=== PATIENT | male | born 1940 | race Caucasian/White ===

== ENCOUNTER 2017-06-17 16:47 | Emergency (ER) | payer MEDICARE, SELFPAY ==
[2017-06-17 16:49] VITALS: BP 153/83; PULSE 75; RESP 20; TEMP 36.8; O2SAT 94; BMI 31.2
[2017-06-17 17:27] LABS: Basophils % 0.3 % (0.1-2.0); Eosinophils # 0.2 K/mm3 (0.0-0.4); Hematocrit 44.4 % (42.0-52.0); Hemoglobin 14.6 g/dL (14.1-18.0); Lymphocytes # 1.1 K/mm3 (0.7-4.5); Lymphocytes % 14.8 K/mm3 (10-50); Mean Corpuscular Hemoglobin 31.5 pg (27.0-31.2); Mean Corpuscular Volume 95.7 fl (80-94); Mean Platelet Volume 7.7 fl (7.4-10.4); Monocytes # 0.5 K/mm3 (0.1-1.0); Monocytes % 6.9 % (1.7-9.3); Neutrophils # 5.5 K/mm3 (1.8-7.8); Platelet Count 274 K/mm3 (142-424); Red Blood Count 4.64 M/mm3 (4.60-6.20); Red Cell Distribution Width 13.3 % (11.5-17.5); White Blood Count 7.3 K/mm3 (4.8-10.8)
--- NOTE | 2017-06-17 17:38 | HMH.EDDIZZ ---
ED Disposition Clinical Impression: Hypertension, CAD (coronary artery disease), Non-compliance, PVCs (premature ventricular contractions) Disposition: Home, Self-Care Condition on Discharge: Fair Additional Instructions: 1- start on coreg 12.5 mg po bid. 2- recheck BP twice a day. 3- to return if needed at any time. 4- see Dr Colorado in AM. Prescriptions: Carvedilol [Coreg 12.5mg Tablet] 12.5 mg PO BID 30 Days #60 tab Referrals: Jose F Morel MD [Primary Care Provider] - - Critical Care Critical Care Time: No Attestation: On 06/17/17, the high probability of a clinically significant, sudden or life threatening deterioration of the following system(s) required my full and direct attention, intervention and personal management. The time I documented below is in addition to time spent performing reported procedures but includes the following listed in this critical care notation. Medical Decision Making - Isaías Inquiry Pt receiving controlled substance: No Isaías was queried for this patient: No Vital Signs: 06/17/17 16:49 06/17/17 19:19 Temperature 98.3 F Temperature Source Oral Pulse Rate [Right Radial] 75 70 Respiratory Rate 20 16 Blood Pressure [Right Arm] 153/83 185/89 Blood Pressure Mean [Right Arm] 106 121 Blood Pressure Source [Right Arm] Automatic Cuff Automatic Cuff Blood Pressure Position [Right Arm] Sitting Sitting 02 Sat by Pulse Oximetry 94 L 98 Oxygen Delivery Method Room Air Room Air - Lab Data Lab Results 06/17/17 17:20: WBC 7.3, RBC 4.64, Hgb 14.6, Hct 44.4, MCV 95.7 H, MCH 31.5 H, MCHC 33.0, RDW 13.3, Plt Count 274, MPV 7.7, Neut % (Auto) 75.0, Lymph % (Auto) 14.8, [place] % (Auto) 6.9, Eos % (Auto) 3.0, Baso % (Auto) 0.3, Neut # (Auto) 5.5, Lymph # (Auto) 1.1, [place] # (Auto) 0.5, Eos # (Auto) 0.2, Baso # (Auto) 0.0 06/17/17 17:20: Sodium 144, Potassium 3.7, Chloride 104, Carbon Dioxide 34 H, Anion Gap 9.7, BUN 9, Creatinine 0.86, Estimated Creat Clear 105, Estimated GFR 87, Est GFR ( Amer) 105, Glucose 124 H, Calcium 8.4 L, Total Bilirubin 0.5, AST 13 L, ALT 20, Alkaline Phosphatase 92, Total Creatine Kinase 153, CK-MB (CK-2) 1.9, CK-MB (CK-2) Rel Index 1.2, Troponin I 0.02, Total Protein 7.0, Albumin 3.9, Globulin 3.1, Albumin/Globulin Ratio 1.3 06/17/17 18:35: Magnesium 2.1, Troponin I 0.02 Result diagrams: 06/17/17 17:20 06/17/17 17:20 Orders (Tests/Meds): ED MEDICATIONS Generic Name Dose Route Start Last Admin Trade Name Freq PRN Reason Stop Dose Admin Carvedilol 6.25 mg 06/17/17 21:00 06/17/17 19:28 Coreg 6.25mg Tablet PO 07/17/17 20:59 6.25 mg BID DAYAN Administration Lisinopril 10 mg 06/18/17 09:00 06/17/17 18:32 Zestril 10mg Tablet PO 07/18/17 08:59 10 mg DAILY DAYAN Administration ORDERS Category Date Time Status ECG Request by /Norma Stat Y 06/17/17 17:10 Ordered - Radiology Data #1 Image(s): Chest Image Reviewed: Yes I reviewed the patient's radiology image, Yes I have reviewed radiologist's interpretation Preliminary Findings: Normal/NAD #2 Image Reviewed: Yes I reviewed the patient's radiology image - CT Data CT Scan: Head Time Received: 19:[address] Reviewed: Yes: I have viewed the radiologist's interpretation Preliminary Findings: Normal/NAD - ECG Data Tracing #1 Sinus rhythm first-degree block with left bundle branch block left axis deviation. ECG initial impression date: 06/17/17 ECG initial impression time: 17:40 Tracing #2 1920 Second EKG normal sinus rhythm 69/min first-degree AV block left bundle with unifocal PVCs ECG initial impression date: 06/17/17 ECG initial impression time: 19:29 - Core Measures Clinical Trial Participant: No AMI core measures followed: No Medical Decision Narrative: I reviewed Mr. Ertl EKG with his compensation agent Dr. Colorado who sold no acute findings and recommended to increase his beta-blockers and follow-up in the morning w
--- NOTE | 2017-06-17 17:41 | ED_ITS ---
ED Disposition Clinical Impression: Hypertension, CAD (coronary artery disease), Non-compliance, PVCs (premature ventricular contractions) Disposition: Home, Self-Care Condition on Discharge: Fair Additional Instructions: 1- start on coreg 12.5 mg po bid. 2- recheck BP twice a day. 3- to return if needed at any time. 4- see Dr Colorado in AM. Prescriptions: Carvedilol [Coreg 12.5mg Tablet] 12.5 mg PO BID 30 Days #60 tab Referrals: Jose F Morel MD [Primary Care Provider] - - Critical Care Critical Care Time: No Attestation: On 06/17/17, the high probability of a clinically significant, sudden or life threatening deterioration of the following system(s) required my full and direct attention, intervention and personal management. The time I documented below is in addition to time spent performing reported procedures but includes the following listed in this critical care notation. Medical Decision Making - Isaías Inquiry Pt receiving controlled substance: No Isaías was queried for this patient: No Vital Signs: 06/17/17 16:49 06/17/17 19:19 Temperature 98.3 F Temperature Source Oral Pulse Rate [Right Radial] 75 70 Respiratory Rate 20 16 Blood Pressure [Right Arm] 153/83 185/89 Blood Pressure Mean [Right Arm] 106 121 Blood Pressure Source [Right Arm] Automatic Cuff Automatic Cuff Blood Pressure Position [Right Arm] Sitting Sitting 02 Sat by Pulse Oximetry 94 L 98 Oxygen Delivery Method Room Air Room Air - Lab Data Lab Results 06/17/17 17:20: WBC 7.3, RBC 4.64, Hgb 14.6, Hct 44.4, MCV 95.7 H, MCH 31.5 H, MCHC 33.0, RDW 13.3, Plt Count 274, MPV 7.7, Neut % (Auto) 75.0, Lymph % (Auto) 14.8, [place] % (Auto) 6.9, Eos % (Auto) 3.0, Baso % (Auto) 0.3, Neut # (Auto) 5.5 , Lymph # (Auto) 1.1, [place] # (Auto) 0.5, Eos # (Auto) 0.2, Baso # (Auto) 0.0 06/17/17 17:20: Sodium 144, Potassium 3.7, Chloride 104, Carbon Dioxide 34 H, Anion Gap 9.7, BUN 9, Creatinine 0.86, Estimated Creat Clear 105, Estimated GFR 87, Est GFR ( Amer) 105, Glucose 124 H, Calcium 8.4 L, Total Bilirubin 0.5, AST 13 L, ALT 20, Alkaline Phosphatase 92, Total Creatine Kinase 153, CK- MB (CK-2) 1.9, CK-MB (CK-2) Rel Index 1.2, Troponin I 0.02, Total Protein 7.0, Albumin 3.9, Globulin 3.1, Albumin/Globulin Ratio 1.3 06/17/17 18:35: Magnesium 2.1, Troponin I 0.02 Result diagrams: 06/17/17 17:20 06/17/17 17:20 Orders (Tests/Meds): ED MEDICATIONS Generic Name Dose Route Start Last Admin Trade Name Freq PRN Reason Stop Dose Admin Carvedilol 6.25 mg 06/17/17 21:00 06/17/17 19:28 Coreg 6.25mg Tablet PO 07/17/17 20:59 6.25 mg BID DAYAN Administration Lisinopril 10 mg 06/18/17 09:00 06/17/17 18:32 Zestril 10mg Tablet PO 07/18/17 08:59 10 mg DAILY DAYAN Administration ORDERS Category Date Time Status ECG Request by /Norma Stat Y 06/17/17 17:10 Ordered - Radiology Data #1 Image(s): Chest Image Reviewed: Yes I reviewed the patient's radiology image, Yes I have reviewed radiologist's interpretation Preliminary Findings: Normal/NAD #2 Image Reviewed: Yes I reviewed the patient's radiology image - CT Data CT Scan: Head Time Received: 19:[address] Reviewed: Yes: I have viewed the radiologist's interpretation Preliminary Findings: Normal/NAD - ECG Data Tracing #1
--- NOTE | 2017-06-17 17:47 | CT_ITS ---
CT head/brain wo con HISTORY: ITS.REASON: dizziness and elevated bp ORDERING PHYSICIAN: Leno Trevino MD PATIENT AGE: 76 years COMPARISON: None TECHNIQUE: Axial images obtained without contrast. Brain and bone windows reviewed. FINDINGS: No midline shift, mass effect, intracranial hemorrhage, hydrocephalus, or extra-axial fluid collection is evident. There is mild atrophy. Hypoattenuation is present in the periventricular and subcortical white matter consistent with ischemic gliotic change from microvascular disease. Small isodense is present in the central aspect of the sorin and could be due to an area of ischemic gliotic change is well. The calvarium has an unremarkable appearance. No mastoid effusion. Mild mucosal thickening of the ethmoid sinuses. IMPRESSION: 1. No acute intracranial findings. 2. Atrophy with chronic ischemic change. 3. No acute intracranial hemorrhage
--- NOTE | 2017-06-17 17:47 | XR_ITS ---
XR chest 2V HISTORY: ITS.REASON: dizziness and elevated BP , new LBBB. ORDERING PHYSICIAN: Leno Trevino MD PATIENT AGE: 76 years COMPARISON: 09/22/2016 FINDINGS: There has been a prior CABG. No evidence of CHF. COPD with chronic changes. No lobar consolidation or collapse. There are degenerative changes in the thoracic spine. There is evidence of old granulomatous disease. Tortuosity/ectasia noted of the descending thoracic aorta IMPRESSION: Prior CABG with COPD. No change with no acute finding
[2017-06-17 17:58] LABS: Alanine Aminotransferase 20 U/L (12-78); Albumin Level 3.9 gm/dL (3.4-5.0); Albumin/Globulin Ratio 1.3 (1.1-1.8); Alkaline Phosphatase 92 U/L (46-116); Anion Gap 9.7 mEq/L (5-15); Aspartate Amino Transferase 13 U/L (15-37); Bilirubin,Total 0.5 mg/dL (0.2-1.0); Blood Urea Nitrogen 9 mg/dL (7-18); CKMB Relative Index 1.2 U/L (0-4.0); Calcium 8.4 mg/dL (8.5-10.1); Carbon Dioxide 34 mmol/L (21.0-32.0); Chloride 104 mmol/L (98-107); Creatine Kinase 153 U/L (39-308); Creatine Kinase MB 1.9 mg/ml (0.0-3.6); Creatinine Clearance Estimated 105 mL/min (0-300); Creatinine,Serum 0.86 mg/dL (0.70-1.30); Estimated Glomerular Filt Rate 87 ml/min (>60); GFR (African American) 105 ML/MIN (>60); Globulin 3.1 gm/dl (1.3-3.2); Glucose 124 mg/dL (74-106); Potassium 3.7 mmoL/L (3.5-5.1); Sodium 144 mmol/L (136-145); Troponin I 0.02 ng/ml (0.00-0.06)
[2017-06-17 19:02] LABS: Magnesium 2.1 mg/dL (1.4-2.2); Troponin I 0.02 ng/ml (0.00-0.06)
[2017-06-17 19:19] VITALS: BP 185/89; PULSE 70; RESP 16; O2SAT 98
[2017-06-17 20:21] VITALS: BP 156/96; PULSE 86; RESP 16; TEMP 36.7; O2SAT 100
== END 2017-06-17 20:22 | disposition home or self-care (01) ==
PROVIDERS: Emergency Provider Emergency Medicine; PCP Emergency Medicine
DX: R42 Dizziness and giddiness (principal); I10 Essential (primary) hypertension; I25.10 Atherosclerotic heart disease of native coronary artery without angina pectoris; E78.5 Hyperlipidemia, unspecified; F17.210 Nicotine dependence, cigarettes, uncomplicated; Z95.1 Presence of aortocoronary bypass graft
CPT/HCPCS: 70450; 71046; 80053; 82550; 82553; 83735; 84484; 85025; 93005; 93041; 99211; 99283

== ENCOUNTER → 2017-06-22 07:06 | Outpatient (CLI) | payer MEDICARE, SELFPAY ==
--- NOTE | 2017-06-22 07:08 | NM_ITS ---
SPECT MYOCARDIAL PERFUSION SCAN, REST [facility] REVIEW QGS EF AND WALL MOTION EVALUATION: QPS - PERFUSION EVALUATION: HISTORY: HTN, CABG PROCEDURE: Rest imaging performed after administration of32.7 millicuries Tc MIBI. Dose administered at7:15 a.m., with imaging thereafter. FINDINGS: Perfusion Evaluation: The single slice spect images as well as the [facility] bull's-eye data summary were reviewed. Wall Motion and Ejection Fraction Evaluation: Gated SPECT review and analysis used to evaluate these features. There is a 34 % left ventricular ejection fraction. Diffuse hypokinesis is present IMPRESSION: Systolic congestive heart failure with ejection fraction of 34%
--- NOTE | 2017-06-22 09:10 | HMH.ITSHM ---
ATORVASTATIN CARVEDILOL PLAVIX DOXIGOXIN LOSARTAN POTASSIUM HYDROCHLOROTHIAZIDE
== END ==
PROVIDERS: PCP Emergency Medicine; Visit Provider Internal Medicine
DX: R94.31 Abnormal electrocardiogram [ECG] [EKG] (principal); I42.9 Cardiomyopathy, unspecified
CPT/HCPCS: 78451; A9502

== ENCOUNTER 2017-06-25 09:43 | Day surgery (SDC) | payer MEDICARE, SELFPAY ==
[2017-06-24 12:09] VITALS: BMI 31.7
[2017-06-25] VITALS (13 sets, daily range): BP systolic 124–148; BP diastolic 69–95; PULSE 62–76; RESP 16–20; TEMP 36.1–36.7; O2SAT 94–98
--- NOTE | 2017-06-25 | XR_ITS ---
XR pacemaker defibrillator CLINICAL INDICATION: Pacemaker placement ITS.REASON: BIV PLACEMENT ORDERING PHYSICIAN: Kurtis Colorado MD PATIENT AGE: 76 years Fluoroscopy time: 24 minutes and 73 seconds COMPARISON: None FINDINGS: Single image submitted with the C-arm shows the dual lead pacemaker present. IMPRESSION: Status post pacemaker placement with fluoroscopic guidance
--- NOTE | 2017-06-25 10:53 | HMH.ANESCL ---
[facility] Anesthesia Checklist - Patient Identification Patient Identification: Arm Band - Structural Data Consent for Planned Operative Procedure(s) Verified: Yes Verified Documents: Surgical Consent, History and Physical - NPO Status Verified Time NPO: 00:00 - Additional verifications Anesthesia Reactions: No - Airway Assessment C-Spine Mobility Assessed: Yes (limited ROM) TMJ Mobility Assessed: Yes Dentition: Dentures-good fit - Neurological Assessment Level of Consciousness: Awake Hx Seizures: No Numbness or tingling in extremities: No - Anesthesia Plan Anesthesia Risk discussed: Yes Anesthesia Plan: Verified ASA Class: III Anesthesia Type: General [facility] Anesthesia HX I have reviewed the patient's past medical history: Yes Medical History: Reports:: Cancer (prostate), Cardiomyopathy, Coronary Artery Disease, Hyperlipidemia, Hypertension, Myocardial Infarction Denies:: Diabetes Mellitus Type 1, Diabetes Mellitus Type 2, Internal Pacemaker, MRSA, Seizures Other Medical History: Denies: Blood Transfusion Reaction Other Surgeries: Yes: CABG, Cardiac Catheterization, Other. 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
--- NOTE | 2017-06-25 10:56 | P.PN_ITS ---
[facility] Anesthesia Checklist - Patient Identification Patient Identification: Arm Band - Structural Data Consent for Planned Operative Procedure(s) Verified: Yes Verified Documents: Surgical Consent, History and Physical - NPO Status Verified Time NPO: 00:00 - Additional verifications Anesthesia Reactions: No - Airway Assessment C-Spine Mobility Assessed: Yes (limited ROM) TMJ Mobility Assessed: Yes Dentition: Dentures-good fit - Neurological Assessment Level of Consciousness: Awake Hx Seizures: No Numbness or tingling in extremities: No - Anesthesia Plan Anesthesia Risk discussed: Yes Anesthesia Plan: Verified ASA Class: III Anesthesia Type: General [facility] Anesthesia HX I have reviewed the patient's past medical history: Yes Medical History: Reports:: Cancer (prostate), Cardiomyopathy, Coronary Artery Disease, Hyperlipidemia, Hypertension, Myocardial Infarction Denies:: Diabetes Mellitus Type 1, Diabetes Mellitus Type 2, Internal Pacemaker, MRSA, Seizures Other Medical History: Denies: Blood Transfusion Reaction Other Surgeries: Yes: CABG, Cardiac Catheterization, Other. 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
--- NOTE | 2017-06-25 14:19 | XR_ITS ---
XR chest portable HISTORY: Follow-up pacemaker placement ITS.REASON: post pacemaker placement ORDERING PHYSICIAN: Kurtis Colorado MD PATIENT AGE: 76 years COMPARISON: 06/17/2017 FINDINGS: AICD device has been placed by the left subclavian approach with the leads in good position. There is cardiomegaly without failure. There has been prior median sternotomy. There are low lung volumes with chronic changes in the lower lobes. No evidence of pneumothorax. IMPRESSION: Status post AICD placement with no radiographic evidence of complication
--- NOTE | 2017-06-25 14:27 | P.PN_ITS ---
[facility] Anesthesia Record Part I Intake, IV Amount: 900 Estimated blood loss (mL): 10 Urine output (mL): 0 Blood Pressure: 126/69 SaO2: 95 Pulse Rate: 65 Respiratory Rate: 16 Temperature: 97 F Patient is:: Drowsy, Stable Stable to PACU at:: 14:20
--- NOTE | 2017-06-25 14:27 | HMH.ANESII ---
[facility] Anesthesia Record Part II Discharge Time: 14:50 Destination: [facility] PACU nurse assessment reviewed?: Yes Patient Condition:: Good Anesthesia Complications:: None
--- NOTE | 2017-06-25 14:28 | P.PN_ITS ---
[facility] Anesthesia Record Part II Discharge Time: 14:50 Destination: [facility] PACU nurse assessment reviewed?: Yes Patient Condition:: Good Anesthesia Complications:: None
--- NOTE | 2017-06-25 15:13 | PC.NURSE ---
1430-O2 titrated to 2l/nc, sats stable. Radiology at bedside.
--- NOTE | 2017-06-25 15:15 | PC.NURSE ---
1440-Pt drinking ice water w/out difficulty. O2 titrated off, sats stable.
--- NOTE | 2017-06-25 15:17 | PC.NURSE ---
slight swelling noted to BiV AICD site (Left upper chest), applied sandbag to site. Bruising noted.
--- NOTE | 2017-06-25 15:18 | PC.NURSE ---
1448-Detailed report called to MARIANO Lowe 1916-Pt transported to post op via stretcher w/rails up. Detailed bedside report given to MARIANO Lozoya. Pt left in care of MARIANO Lozoya w/bed locked in loewst position. VSS. Pt stable.
--- NOTE | 2017-06-28 08:07 | HMH.CRT-D ---
[facility] DRAPERY COUNSELOR-D - DRAPERY COUNSELOR-D Date of Procedure:: 06/25/17 Procedures:: 1. Pocket formation for biventricular pacemaker generator with cardiac resynchronization/defibrillator therapy. 2. Placement atrial sensing and pacing lead into the right atrial appendage. 3. Placement of right ventricular sensing pacing and shocking lead in the right ventricular apex. 4. Placement of left ventricular sensing pacing lead via the coronary sinus. 5. Permanent cardiac resynchronization therapy with ICD implantation/biventricular pacemaker. Indication for test:: Systolic Congestive Heart Failure, Ejection < 35 % Wide QRS > 120 m/s [place] Heart [employer] Class 3 CHF Informed consent:: Obtained prior to procedure. Complications:: None EBL:: Less than 10 ml. Technique:: 1% lidocaine with epinephrine used to anesthetize the left anterior aspect of the chest. Scalpel was used to make the initial cutaneous incision while electrocautery was used to dissect down into the fascia. The fascia was lifted off the pectoralis muscle and digitally manipulated creating a pocket for the pacemaker. The patient was then placed in Trendelenburg position and subclavian vein was accessed via the Seldinger technique on 3 separate occasions. 3 wires were left into the subclavian vein. The right ventricular pacing shocking coil sheath was placed into the subclavian vein and under fluoroscopic guidance the right lingular sensing pacing shocking lead was placed into the right ventricular apex secured into place with the distal screw. After achieving excellent numbers the lead was then secured into placing using 3-0 silk. The lead was secured to the fascia also with heavy silk suture. Prior to the right ventricular lead being secured into place the sheath was peeled away from the subclavian vein. Under fluoroscopic guidance the coronary sinus was cannulated and confirmed with an injection of contrast. An 0.014 wire was then placed distally in the inferior posterior segment of the left ventricle via the coronary sinus and the left ventricular lead was advanced. After achieving excellent thresholds and interrogation numbers the sheath was then peeled away and the lead was then secured into place using silk suture. Following this, the left ventricular coil was secured in place using heavy silk and also secured to the fascia and additional 7 Armenian sheath was then placed over the existing wire and an atrial sensing placing coil was placed in the right atrial appendage after achieving excellent thresholds the sheath was peeled away and the lead was secured to the fascia using heavy silk. After achieving, hemostasis, Ancef was used to flush the pocket and the 3 leads were attached to the DRAPERY COUNSELOR-D generator. The generator was then secured into place by heavy silk suture. Monocryl was used to close the subcutaneous layers while rupert were used to close the subcutaneous layers while rupert were used to close the cutaneous layer. Pressurized and the patient was transferred to the postop holding area in stable condition. Impression:: 1. Successful pocket formation for biventricular pacemaker generator with cardiac resynchronization/defibrillator therapy. 2. Successful placement of right atrial sensing and pacing lead into the right atrial appendage. 3. Successful placement of a right ventricular sensing, pacing, and shocking lead in the right ventricular apex. 4. Successful placement of left ventricular sensing pacing lead via the coronary sinus. 5. Successful permanent cardiac resynchronization plus AICD generator device. Interrogation:: Generator: [employer] Model # [id number] Serial # [id number] RA Model # [id number] Serial # [id number] P-wave 3.0 mV Impedance 540 Ohms Threshold 0.75 V Pulse Width 0.5 ms RVA Model # [id number] Serial # [id number] R-wave 11.5 mV Impedance 650 Ohms Threshold 0.5 V Pulse Width 0.5 ms LV Model # 1458Q/86 Serial # [id number] R-wave
--- NOTE | 2017-06-28 08:10 | P.PCN_ITS ---
[facility] CHEMISTRY LECTURER-D - CHEMISTRY LECTURER-D Date of Procedure:: 06/25/17 Procedures:: 1. Pocket formation for biventricular pacemaker generator with cardiac resynchronization/defibrillator therapy. 2. Placement atrial sensing and pacing lead into the right atrial appendage. 3. Placement of right ventricular sensing pacing and shocking lead in the right ventricular apex. 4. Placement of left ventricular sensing pacing lead via the coronary sinus. 5. Permanent cardiac resynchronization therapy with ICD implantation/ biventricular pacemaker. Indication for test:: Systolic Congestive Heart Failure, Ejection < 35 % Wide QRS > 120 m/s [place] Heart [employer] Class 3 CHF Informed consent:: Obtained prior to procedure. Complications:: None EBL:: Less than 10 ml. Technique:: 1% lidocaine with epinephrine used to anesthetize the left anterior aspect of the chest. Scalpel was used to make the initial cutaneous incision while electrocautery was used to dissect down into the fascia. The fascia was lifted off the pectoralis muscle and digitally manipulated creating a pocket for the pacemaker. The patient was then placed in Trendelenburg position and subclavian vein was accessed via the Seldinger technique on 3 separate occasions. 3 wires were left into the subclavian vein. The right ventricular pacing shocking coil sheath was placed into the subclavian vein and under fluoroscopic guidance the right lingular sensing pacing shocking lead was placed into the right ventricular apex secured into place with the distal screw. After achieving excellent numbers the lead was then secured into placing using 3-0 silk. The lead was secured to the fascia also with heavy silk suture. Prior to the right ventricular lead being secured into place the sheath was peeled away from the subclavian vein. Under fluoroscopic guidance the coronary sinus was cannulated and confirmed with an injection of contrast. An 0.014 wire was then placed distally in the inferior posterior segment of the left ventricle via the coronary sinus and the left ventricular lead was advanced. After achieving excellent thresholds and interrogation numbers the sheath was then peeled away and the lead was then secured into place using silk suture. Following this, the left ventricular coil was secured in place using heavy silk and also secured to the fascia and additional 7 Japanese sheath was then placed over the existing wire and an atrial sensing placing coil was placed in the right atrial appendage after achieving excellent thresholds the sheath was peeled away and the lead was secured to the fascia using heavy silk. After achieving, hemostasis, Ancef was used to flush the pocket and the 3 leads were attached to the CHEMISTRY LECTURER-D generator. The generator was then secured into place by heavy silk suture. Monocryl was used to close the subcutaneous layers while rupert were used to close the subcutaneous layers while rupert were used to close the cutaneous layer. Pressurized and the patient was transferred to the postop holding area in stable condition. Impression:: 1. Successful pocket formation for biventricular pacemaker generator with cardiac resynchronization/defibrillator therapy. 2. Successful placement of right atrial sensing and pacing lead into the right atrial appendage. 3. Successful placement of a right ventricular sensing, pacing, and shocking lead in the right ventricular apex. 4. Successful placement of left ventricular sensing pacing lead via the coronary sinus. 5. Successful permanent cardiac resynchronization plus AICD generator device. Interrogation:: Generator: [employer] Model # [id number] Serial # [id number]
== END 2017-06-25 17:04 | disposition home or self-care (01) ==
LOC: OR 09:46
PROVIDERS: PCP Emergency Medicine; Visit Provider Internal Medicine
PROC: 0JH609Z Insertion of Cardiac Resynchronization Defibrillator Pulse Generator into Chest Subcutaneous Tissue and Fascia, Open Approach (ICD-10-PCS; CPT 33249; principal; 2017-06-25 11:30)
DX: Z45.02 Encounter for adjustment and management of automatic implantable cardiac defibrillator (principal); I50.20 Unspecified systolic (congestive) heart failure; I44.7 Left bundle-branch block, unspecified; I25.10 Atherosclerotic heart disease of native coronary artery without angina pectoris; I25.2 Old myocardial infarction; I25.5 Ischemic cardiomyopathy; I11.0 Hypertensive heart disease with heart failure; Z95.1 Presence of aortocoronary bypass graft
CPT/HCPCS: 33225; 33249; 71045; 96374; C1769; C1882; C1894; C1895; C1898; C1900; Q9967

== ENCOUNTER → 2017-07-21 10:01 | Outpatient (CLI) | payer MEDICARE, SELFPAY ==
[2017-07-21 11:50] LABS: Anion Gap 12.4 mEq/L (5-15); Blood Urea Nitrogen 13 mg/dL (7-18); Carbon Dioxide 30 mmol/L (21.0-32.0); Chloride 103 mmol/L (98-107); Creatinine,Serum 0.76 mg/dL (0.70-1.30); Estimated Glomerular Filt Rate 100 ml/min (>60); GFR (African American) 121 ML/MIN (>60); Glucose 97 mg/dL (74-106); Potassium 4.4 mmoL/L (3.5-5.1); Sodium 141 mmol/L (136-145)
== END ==
PROVIDERS: Visit Provider Internal Medicine Cardiovascular Disease
DX: R06.02 Shortness of breath (principal); I42.9 Cardiomyopathy, unspecified; R53.83 Other fatigue; Z95.810 Presence of automatic (implantable) cardiac defibrillator
CPT/HCPCS: 36415; 80048; 83880

== ENCOUNTER → 2017-09-13 12:39 | Outpatient (CLI) | payer MEDICARE, SELFPAY ==
[2017-09-13 01:45] VITALS: PULSE 66; PULSE 67
== END ==
PROVIDERS: PCP Emergency Medicine; Visit Provider Internal Medicine
DX: R06.09 Other forms of dyspnea (principal)
CPT/HCPCS: 94060; 94640; 94726; 94729

== ENCOUNTER → 2017-10-05 09:50 | Outpatient (REF) | payer MEDICARE, SELFPAY ==
[2017-10-05 13:44] LABS: Basophils % 0.5 % (0.1-2.0); Eosinophils # 0.3 K/mm3 (0.0-0.4); Eosinophils % 3.2 % (0.1-12.0); Hematocrit 47.3 % (42.0-52.0); Hemoglobin 14.7 g/dL (14.1-18.0); Lymphocytes # 1.5 K/mm3 (0.7-4.5); Lymphocytes % 17.5 K/mm3 (10-50); Mean Corpuscular HGB Conc 31.2 g/dL (31.8-35.4); Mean Corpuscular Hemoglobin 30.5 pg (27.0-31.2); Mean Corpuscular Volume 97.9 fl (80-94); Mean Platelet Volume 8.7 fl (7.4-10.4); Monocytes # 0.5 K/mm3 (0.1-1.0); Monocytes % 6.6 % (1.7-9.3); Neutrophils % 72.2 % (37.0-80.0); Platelet Count 253 K/mm3 (142-424); Red Blood Count 4.83 M/mm3 (4.60-6.20); Red Cell Distribution Width 12.8 % (11.5-17.5); White Blood Count 8.3 K/mm3 (4.8-10.8)
[2017-10-05 14:01] LABS: Cholesterol 140 mg/dL (140-200); HDL Cholesterol 47 mg/dL (27-67); LDL Cholesterol 75 mg/dL (0-130); Triglycerides 92 mg/dL (30-200); VLDL Cholesterol 18 mg/dL (0-40)
[2017-10-05 14:20] LABS: Alanine Aminotransferase 20 U/L (12-78); Albumin/Globulin Ratio 1.5 (1.1-1.8); Alkaline Phosphatase 82 U/L (46-116); Anion Gap 11.9 mEq/L (5-15); Aspartate Amino Transferase 18 U/L (15-37); Bilirubin,Total 0.5 mg/dL (0.2-1.0); Blood Urea Nitrogen 12 mg/dL (7-18); Calcium 8.7 mg/dL (8.5-10.1); Carbon Dioxide 32 mmol/L (21.0-32.0); Chloride 105 mmol/L (98-107); Creatinine,Serum 0.78 mg/dL (0.70-1.30); Estimated Glomerular Filt Rate 97 ml/min (>60); GFR (African American) 117 ML/MIN (>60); Globulin 2.6 gm/dl (1.3-3.2); Glucose 103 mg/dL (74-106); Potassium 3.9 mmoL/L (3.5-5.1); Sodium 145 mmol/L (136-145); Total Protein,Serum 6.6 gm/dL (6.4-8.2)
[2017-10-05 14:25] LABS: Prostate Specific Ag Screen < 0.1 ng/mL (0.0-4.0)
== END ==
LOC: LAB 09:50
PROVIDERS: Visit Provider Emergency Medicine
DX: Z12.5 Encounter for screening for malignant neoplasm of prostate (principal); I25.10 Atherosclerotic heart disease of native coronary artery without angina pectoris; E78.5 Hyperlipidemia, unspecified
CPT/HCPCS: 80053; 80061; 85025; G0103

== ENCOUNTER → 2017-12-07 13:36 | Outpatient (POV) | payer MEDICARE, SELFPAY | PROVIDERS: Visit Provider Internal Medicine | DX: Z00.00 Encounter for general adult medical examination without abnormal findings (principal) ==

== ENCOUNTER → 2017-12-16 12:30 | Outpatient (CLI) | payer MEDICARE, SELFPAY ==
--- NOTE | 2017-12-16 12:32 | CT_ITS ---
CT lung screening EXAM: CT LUNG LOW DOSE WO CONTRAST HISTORY: Asymptomatic with 120 pack-year smoking history ITS.REASON: H/O NICOTINE DEPENDENCE ORDERING PHYSICIAN: Cristhian Baires MD PATIENT AGE: 77 years COMPARISON: None TECHNIQUE: The exam was performed on a GE Light Speed [address] scanner using 2.90 mGy CTDI. A low dose helical CT CHEST was performed on a multi-detector scanner. All CT scans at the facility use one or more dose reduction, viz: automated exposure control, ma/kV adjustment per patient size (including targeted exams where dose is matched to indication, i.e. head), or iterative reconstruction technique. The LDCT was performed in a facility that meets the criteria for the screening program. Data regarding this exam was submitted to ACR which is an approved registry. The order for this exam indicates that it came as a result of a lung cancer screening counseling shard decision-making visit that included all the elements required of such a visit including smoking cessation. The radiologist interpreting this exam meets the CMS criteria for the LDCT lung cancer screening program. The exam is reported using the Lung-RADS classification scale and reported to the ACR registry. NOTE: This study was performed for the specific purposes of lung cancer screening and is not an alternative to diagnostic chest CT. RADIATION DOSE: CTDI vol(CT dose Index-volume) = 2.90mG DLP (Dose Length Product) = 106.81 mGcm FINDINGS: Artifact is present from cardiac pacemaker from a left subclavian approach. 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 There are extensive coronary artery calcifications ill-defined noncalcified subpleural opacity in the right lung base anteriorly at 4 mm with groundglass density inferior to this area. Calcified granuloma right lung base. Fibrotic changes are present within the lingula. No suspicious pulmonary nodules evident. There is hyperinflation with attenuation of the peripheral pulmonary vessels and mild bronchial thickening consistent with obstructive chronic bronchitis IMPRESSION: 1. Lung RADS Category: 2, benign 2. Other findings: COPD, coronary artery disease RECOMMENDATIONS: 12 month LDCT follow-up
== END ==
PROVIDERS: PCP Emergency Medicine; Visit Provider Internal Medicine
DX: Z12.2 Encounter for screening for malignant neoplasm of respiratory organs (principal); Z87.891 Personal history of nicotine dependence

== ENCOUNTER → 2018-03-08 13:43 | Outpatient (POV) | payer MEDICARE, SELFPAY | PROVIDERS: Visit Provider Internal Medicine | DX: Z00.00 Encounter for general adult medical examination without abnormal findings (principal) ==

== ENCOUNTER → 2018-04-07 13:20 | Outpatient (CLI) | payer MEDICARE, SELFPAY ==
[2018-04-07 13:44] LABS: Basophils % 0.5 % (0.1-2.0); Eosinophils # 0.3 K/mm3 (0.0-0.4); Eosinophils % 3.9 % (0.1-12.0); Hematocrit 45.8 % (42.0-52.0); Hemoglobin 14.8 g/dL (14.1-18.0); Lymphocytes # 1.2 K/mm3 (0.7-4.5); Lymphocytes % 16.4 % (10-50); Mean Corpuscular HGB Conc 32.3 g/dL (31.8-35.4); Monocytes # 0.5 K/mm3 (0.1-1.0); Monocytes % 6.7 % (1.7-9.3); Neutrophils # 5.5 K/mm3 (1.8-7.8); Neutrophils % 72.5 % (37.0-80.0); Platelet Count 258 K/mm3 (142-424); Red Blood Count 4.62 M/mm3 (4.60-6.20); Red Cell Distribution Width 13.3 % (11.5-17.5); White Blood Count 7.6 K/mm3 (4.8-10.8)
[2018-04-07 13:57] LABS: Alanine Aminotransferase 21 U/L (12-78); Albumin/Globulin Ratio 1.5 (1.1-1.8); Alkaline Phosphatase 91 U/L (46-116); Anion Gap 10.7 mEq/L (5-15); Aspartate Amino Transferase 19 U/L (15-37); Bilirubin,Total 0.7 mg/dL (0.2-1.0); Blood Urea Nitrogen 11 mg/dL (7-18); Calcium 8.5 mg/dL (8.5-10.1); Carbon Dioxide 32 mmol/L (21.0-32.0); Chloride 105 mmol/L (98-107); Cholesterol 150 mg/dL (140-200); Creatinine,Serum 0.81 mg/dL (0.70-1.30); Estimated Glomerular Filt Rate 93 ml/min (>60); Free T4 (Free Thyroxine) 0.95 ng/dl (0.76-1.46); GFR (African American) 112 ML/MIN (>60); Globulin 2.7 gm/dl (1.3-3.2); Glucose 106 mg/dL (74-106); HDL Cholesterol 50 mg/dL (27-67); LDL Cholesterol 89 mg/dL (0-130); Potassium 3.7 mmoL/L (3.5-5.1); Sodium 144 mmol/L (136-145); Thyroid Stimulating Hormone 1.58 uIU/ml (0.358-3.740); Total Protein,Serum 6.7 gm/dL (6.4-8.2); Triglycerides 57 mg/dL (30-200); VLDL Cholesterol 11 mg/dL (0-40)
[2018-04-09 21:47] LABS: PSA, Free <0.01 ng/mL; Prostate Specific Ag <0.1 ng/mL (0.0-4.0)
== END ==
PROVIDERS: Visit Provider Emergency Medicine
DX: I25.10 Atherosclerotic heart disease of native coronary artery without angina pectoris (principal); Z85.46 Personal history of malignant neoplasm of prostate; Z79.899 Other long term (current) drug therapy
CPT/HCPCS: 80053; 80061; 84153; 84154; 84439; 84443; 85025

== ENCOUNTER → 2018-05-27 10:49 | Outpatient (CLI) | payer MEDICARE, SELFPAY ==
--- NOTE | 2018-05-27 10:53 | XR_ITS ---
XR chest 2V HISTORY: ITS.REASON: cough ORDERING PHYSICIAN: Darya Alejandre PATIENT AGE: 77 years COMPARISON: 06/25/2017 FINDINGS: Prior CABG. Biventricular pacemaker with atrial lead noted. Borderline cardiomegaly without failure. There is COPD. Chronic changes are present left lower lobe. There is patchy increased density in the right lower lobe posteriorly suspicious for an area of infiltrate/pneumonia. Calcified granuloma is present in the right lung base. No acute bony findings. IMPRESSION: Prior CABG with pacemaker present. COPD with patchy infiltrate in the right lower lobe
== END ==
PROVIDERS: PCP Emergency Medicine; Visit Provider Nurse Practitioner Family
DX: J44.9 Chronic obstructive pulmonary disease, unspecified (principal); R05 Cough; R09.89 Other specified symptoms and signs involving the circulatory and respiratory systems
CPT/HCPCS: 71046

== ENCOUNTER 2018-07-14 14:35 | Inpatient (IN) ==
--- NOTE | 2018-07-14 16:03 | Emergency Department Note ---
ED Disposition Clinical Impression: PNA (pneumonia) Qualifiers: Pneumonia type: due to unspecified organism Laterality: right Lung location: lower lobe of lung Qualified Code(s): J18.1 - Lobar pneumonia, unspecified organism Disposition: Admitted as Observation Condition on Discharge: Good Time of Disposition: 09:00 - Critical Care Critical Care Time: No Attestation: On 07/14/18, the high probability of a clinically significant, sudden or life threatening deterioration of the following system(s) required my full and direct attention, intervention and personal management. The time I documented below is in addition to time spent performing reported procedures but includes the following listed in this critical care notation. Medical Decision Making - Medical Records Medical records reviewed: Yes: I reviewed the patient's medical records. - Isaías Inquiry Pt receiving controlled substance: No Isaías was queried for this patient: No Vital Signs: 07/14/18 14:39 07/14/18 15:10 07/14/18 15:56 Temperature 97.7 F 97.8 F 98.9 F Temperature Source Oral Oral Oral Pulse Rate Pulse Rate [Right] 76 87 64 Respiratory Rate 20 22 20 Blood Pressure Blood Pressure [Right Arm] 148/100 H 158/98 H 125/91 H Blood Pressure Mean [Right Arm] 116 118 102 Blood Pressure Source Blood Pressure Source [Right Arm] Manual Cuff/ Auscultation Automatic Cuff Automatic Cuff Blood Pressure Position Blood Pressure Position [Right Arm] Sitting Sitting Sitting 02 Sat by Pulse Oximetry 94 L 97 93 L Oxygen Delivery Method Room Air Room Air Room Air 07/14/18 16:20 07/14/18 17:00 07/14/18 17:15 Temperature Temperature Source Pulse Rate Pulse Rate [Right] 73 96 H 95 H Respiratory Rate Blood Pressure Blood Pressure [Right Arm] 163/99 H 161/79 H 150/97 H Blood Pressure Mean [Right Arm] 120 106 114 Blood Pressure Source Blood Pressure Source [Right Arm] Automatic Cuff Automatic Cuff Automatic Cuff Blood Pressure Position Blood Pressure Position [Right Arm] Sitting Sitting Sitting 02 Sat by Pulse Oximetry 93 L 99 94 L Oxygen Delivery Method Room Air 07/14/18 17:30 07/14/18 18:01 Temperature 98.0 F Temperature Source Oral Pulse Rate 79 Pulse Rate [Right] 93 H Respiratory Rate 20 20 Blood Pressure 139/77 Blood Pressure [Right Arm] 114/75 Blood Pressure Mean [Right Arm] 88 Blood Pressure Source Automatic Cuff Blood Pressure Source [Right Arm] Automatic Cuff Blood Pressure Position Sitting Blood Pressure Position [Right Arm] Sitting 02 Sat by Pulse Oximetry 97 Oxygen Delivery Method Room Air Room Air - Lab Data Lab results reviewed: Yes: I reviewed the patient's lab results. Lab Results 07/14/18 15:45: WBC 6.7, RBC 4.09 L, Hgb 13.1 L, Hct 38.9 L, MCV 95.2 H, MCH 32.2 H, MCHC 33.8, RDW 13.5, Plt Count 274, MPV 7.4, Neut % (Auto) 64.3, Lymph % (Auto) 23.0, [place] % (Auto) 7.9, Eos % (Auto) 4.4, Baso % (Auto) 0.5, Neut # (Auto) 4.3, Lymph # (Auto) 1.5, [place] # (Auto) 0.5, Eos # (Auto) 0.3, Baso # (Auto) 0.0 07/14/18 15:45: Sodium 145, Potassium 3.3 L, Chloride 104, Carbon Dioxide 32, Anion Gap 12.3, BUN 13, Creatinine 1.09, Estimated Creat Clear 91, Estimated GFR 66, Est GFR ( Amer) 79, Glucose 119 H, Calcium 9.0 07/14/18 15:45: Lactate 1.1 Result diagrams: 07/19/18 07:59 07/19/18 07:59 Orders (Tests/Meds): ED MEDICATIONS Discontinued Medications Generic Name Dose Route Start Last Admin Trade Name Freq PRN Reason Stop Dose Admin Acetaminophen 650 mg 07/14/18 17:33 Acetaminophen 325mg Tab PO 08/13/18 17:32 Q4HP PRN As Needed for Fever or Pain Acetaminophen 650 mg 07/14/18 18:01 Acetaminophen 325mg Tab PO 08/13/18 17:32 Q4HP PRN As Needed for Fever or Pain Albuterol/Ipratropium 3 ml 07/14/18 16:00 07/14/18 16:10 Duoneb 3ml [facility] 07/14/18 16:01 3 ml ONCE ONE Administration Albuterol/Ipratropium 3 ml 07/16/18 13:00 07/19/18 06:10 Duoneb 3ml [facility] 08/15/18 12:59 3 ml TIDRT DAYAN Administration Aspirin 81 mg 07/15/18 09:00 Aspirin 81mg Chewable Tablet PO 08/14/18 08:59 DAILY DAYAN Aspirin 81 mg 07/15/18 09:00 07/19/18 09:15 Aspirin 81mg Chewable Tablet PO 08/14/18 08:59 81 mg DAILY DAYAN Administration Atorvastatin Calcium 40 mg 07/15/18 09:00 Lipitor 40mg Tablet PO 08/14/18 08:59 DAILY DAYAN Atorvastatin Calcium 40 mg 07/15/18 21:00 07/18/18 21:10 Lipitor 40mg Tablet PO 08/14/18 20:59 40 mg HS DAYAN Administration Carvedilol 12.5 mg 07/14/18 21:00 Coreg 12.5mg Tablet PO 08/13/18 20:59 BID DAYAN Carvedilol 12.5 mg 07/14/18 21:00 07/18/18 08:50 Coreg 12.5mg Tablet PO 08/13/18 20:59 12.5 mg BID DAYAN Administration Carvedilol 18.75 mg 07/18/18 21:00 07/19/18 09:17 Coreg 12.5mg Tablet PO 08/17/18 20:59 18.75 mg BID DAYAN Administration Diphenhydramine HCl 50 mg 07/18/18 12:13 07/18/18 12:17 Benadryl 50mg/1ml Vial IV 07/18/18 12:14 50 mg ONCE ONE Administration Doxazosin Mesylate 2 mg 07/15/18 09:00 07/15/18 12:09 Cardura 4mg Tablet PO 08/14/18 08:59 Not Given DAILY DAYAN Fentanyl Citrate 25 mcg 07/18/18 09:23 Fentanyl 250mcg/5ml Vial IV 07/19/18 09:23 Q3MINP PRN Moderate to Severe Pain Fentanyl Citrate 50 mcg 07/18/18 09:23 Fentanyl 250mcg/5ml Vial IV 07/19/18 09:23 Q3MINP PRN Moderate to Severe Pain Fentanyl Citrate 50 mcg 07/18/18 12:13 07/18/18 12:34 Fentanyl 100mcg/2ml Vial IV 07/19/18 12:14 75 mcg Q3MINP PRN Administration Moderate to Severe Pain Fentanyl Citrate 25 mcg 07/18/18 12:13 Fentanyl 100mcg/2ml Vial IV 07/19/18 12:14 Q3MINP PRN Moderate to Severe Pain Flumazenil 0.2 mg 07/18/18 09:23 Romazicon 0.1mg/Ml 5ml Vial IV 07/18/18 23:00 NEEDED PRN Sedation Furosemide 40 mg 07/18/18 14:15 Lasix 40mg Tablet PO 08/17/18 14:14 DAILY DAYAN Furosemide 40 mg 07/18/18 14:09 07/18/18 14:30 Lasix 40mg/4ml Vial IV 07/18/18 14:10 40 mg ONCE ONE Administration Furosemide 40 mg 07/19/18 14:15 Lasix 40mg Tablet PO 08/18/18 14:14 DAILY DAYAN Furosemide 40 mg 07/18/18 18:46 07/18/18 19:19 Lasix 40mg/4ml Vial IV 07/18/18 18:47 40 mg ONCE ONE Administration Heparin Sodium (Porcine) 10,000 unit 07/18/18 12:13 Heparin 1,000 Units/Ml 10ml Vial (Radio Message [employer]outer) IV 07/18/18 16:13 NEEDED PRN Emergency [employer] Heparin Sodium/Sodium Chloride 3,000 unit 07/18/18 12:13 07/18/18 12:17 Heparin 1000 Units/500ml Ns (Radio Message Router) IV 07/18/18 12:14 3,000 unit ONCE ONE Administration Sodium Chloride 1,000 mls @ 50 mls/hr 07/14/18 17:45 Sod Chlor 0.9% 1000ml Bag IV 08/13/18 17:44 .Q20H DAYAN Levofloxacin/Dextrose 750 mg in 150 mls @ 100 mls/hr 07/14/18 17:30 07/14/18 17:49 Levofloxacin 750mg/150ml Premix IV 07/28/18 17:29 100 mls/hr Q24H DAYAN Administration Protocol Piperacillin Sod/Tazobactam 100 mls @ 200 mls/hr 07/14/18 17:30 07/14/18 19:21 Sod 4.5 gm/ Sodium Chloride IV 07/28/18 17:29 200 mls/hr Q8H DAYAN Administration Protocol Sodium Chloride 1,000 mls @ 50 mls/hr 07/14/18 18:01 07/18/18 07:42 Sod Chlor 0.9% 1000ml Bag IV 08/13/18 17:44 Not Given .Q20H DAYAN Piperacillin Sod/Tazobactam 100 mls @ 200 mls/hr 07/15/18 01:30 07/19/18 09:20 Sod 4.5 gm/ Sodium Chloride IV 07/28/18 17:29 200 mls/hr Q8H DAYAN Administration Protocol Levofloxacin/Dextrose 750 mg in 150 mls @ 100 mls/hr 07/15/18 18:00 07/18/18 19:19 Levofloxacin 750mg/150ml Premix IV 07/28/18 17:59 100 mls/hr Q24H DAYAN Administration Protocol Sodium Chloride 1,000 mls @ 25 mls/hr 07/18/18 12:15 07/18/18 12:17 Sod Chlor 0.9% 1000ml Bag IV 07/19/18 12:13 25 mls/hr .Q25H DAYAN Administration Ioversol 100 ml 07/18/18 14:05 07/18/18 14:06 Rad-Optiray 320 150ml Vial IV 07/18/18 14:06 100 ml ONCE ONE Administration Protocol Lidocaine HCl 20 ml 07/18/18 12:13 07/18/18 12:16 Lidocaine 1% 20ml Mdv IJ 07/18/18 12:14 10 ml ONCE ONE Administration Methylprednisolone Sodium Succinate 125 mg 07/14/18 16:01 07/14/18 16:10 Solu-Medrol 125mg/2ml Vial IV 07/14/18 16:02 125 mg ONCE ONE Administration Methylprednisolone Sodium Succinate 125 mg 07/14/18 16:01 07/14/18 16:09 Solu-Medrol 125mg/2ml Vial IV 07/14/18 16:02 Not Given ONCE ONE Methylprednisolone Sodium Succinate 40 mg 07/16/18 09:00 07/18/18 15:30 Methylprednisolone Sod Succinate 40mg Vial IV 08/15/18 08:59 40 mg Q6H DAYAN Administration Midazolam HCl 1 mg 07/18/18 09:23 07/18/18 12:33 Midazolam 1mg/Ml 5ml Vial IV 07/19/18 09:23 4 mg Q3MINP PRN Administration Sedation Midazolam HCl 1 mg 07/18/18 09:23 Midazolam 2mg/2ml Vial IV 07/19/18 09:23 Q3MINP PRN Sedation Miscellaneous 1 dose 07/15/18 14:37 07/15/18 14:40 Nuc-Isotope Myoview (Per Study) IV 07/15/18 14:38 1 dose ONCE ONE Administration Protocol Naloxone HCl 0.4 mg 07/18/18 09:23 Narcan 0.4mg/Ml Vial IV 07/19/18 09:23 Q5MINP PRN Decreased respirations Naloxone HCl 0.4 mg 07/18/18 12:13 Narcan 0.4mg/Ml Vial IV 07/19/18 12:13 Q5MINP PRN Decreased respirations Nitroglycerin 800 mcg 07/18/18 12:13 Nitroglycerin 800mcg/8ml Syr (Radio Message Router) IV 07/19/18 12:13 NEEDED PRN Emergency [employer] Non-Formulary Medication 2 mg 07/14/18 17:30 Doxazosin Mesylate [Cardura 2mg Tab] PO 08/13/18 17:29 QDAY DAYAN Non-Formulary Medication 1 tab 07/15/18 09:00 Losartan/Hydrochlorothiazide [Hyzaar 100-12.5 Tablet] PO 08/14/18 08:59 DAILY DAYAN Non-Formulary Medication 2 mg 07/14/18 18:01 Doxazosin Mesylate [Cardura 2mg Tab] PO 08/13/18 17:29 QDAY DAYAN Pt's Own Med 1 tab 07/15/18 09:00 07/19/18 09:18 Losartan/ PO 08/14/18 08:59 1 tab Hydrochlorothiazide DAILY DAYAN Administration [Hyzaar] 100-12.5 Tablet Pt's Own Med 1 each 07/15/18 11:00 07/19/18 09:18 Doxazosin 2 Mg Tab PO 08/14/18 10:59 1 each DAILY DAYAN Administration Ondansetron HCl 4 mg 07/14/18 17:33 Zofran 4mg/2ml Vial IV 08/13/18 17:32 Q8HP PRN Nausea Ondansetron HCl 4 mg 07/14/18 18:01 Zofran 4mg/2ml Vial IV 08/13/18 17:32 Q8HP PRN Nausea Potassium Chloride 20 meq 07/15/18 09:00 Klor-Con 20meq Tablet PO 08/14/18 08:59 DAILY DAYAN Potassium Chloride 20 meq 07/15/18 11:00 07/18/18 08:51 Klor-Con 20meq Tablet PO 08/14/18 10:59 20 meq DAILY DAYAN Administration Potassium Chloride 20 meq 07/18/18 15:00 07/19/18 09:19 Klor-Con 20meq Tablet PO 08/17/18 14:59 20 meq TID DAYAN Administration Regadenoson 0.4 mg 07/15/18 11:45 07/15/18 14:40 Lexiscan 0.4mg/5ml Syringe IV 07/15/18 11:46 0.4 mg ONCE ONE Administration Sodium Chloride 3 ml 07/14/18 16:01 Sodium Chloride 3% 15ml [facility] 08/13/18 16:00 ONCE PRN [employer]CE [employer] Sodium Chloride 3 ml 07/14/18 18:01 Sodium Chloride 3% 15ml [facility] 08/13/18 16:00 ONCE PRN IN[employer]CE [employer] Sodium Chloride 10 ml 07/15/18 07:42 07/17/18 21:20 Saline Flush 10ml Syringe IV 08/14/18 07:41 10 ml NEEDED PRN Administration Maintain IV Site Sodium Chloride 10 ml 07/15/18 14:37 07/15/18 14:40 Rad-Saline Flush 10ml Syringe IV 08/14/18 14:36 10 ml NEEDED PRN Administration Maintain IV Site Sodium Chloride 10 ml 07/15/18 14:39 07/15/18 14:41 Rad-Saline Flush 10ml Syringe IV 08/14/18 14:38 10 ml NEEDED PRN Administration Maintain IV Site Sodium Chloride 10 ml 07/18/18 09:23 Saline Flush 10ml Syringe IV 08/17/18 09:22 NEEDED PRN Maintain IV Site Sodium Chloride 10 ml 07/18/18 12:13 Saline Flush 10ml Syringe IV 08/17/18 12:12 NEEDED PRN Maintain IV Site Sodium Chloride 10 ml 07/18/18 12:13 Saline Flush 10ml Syringe IV 08/17/18 12:12 NEEDED PRN Maintain IV Site Verapamil HCl 2.5 mg 07/18/18 12:13 07/18/18 13:27 Verapamil 2.5mg/Ml 2ml Vial IV 07/18/18 12:14 Not Given ONCE ONE - Physician Consults Physician Consulted: mita Time: 17:29 Reason -: Admission Comment/Response: obs General Adult HPI - General Stated complaint: congested cough Time Seen by Provider: 07/14/18 15:56 Mode of Arrival: Family Vehicle Source of Information: Patient Limitations: No Limitations Description of Symptoms (Recalled from ER Triage Doc. by RN): pt has had cough and congestion for 4 months. has been on antibiotics for over one months, reports having been recently diagnosed with pneumonia. Pt was seen by Perlita Gamboa earlier today and advised to come to the ER. - Related Data Home Medications Medication Instructions Recorded Confirmed aspirin 81 mg chewable tablet 81 mg PO DAILY tab 06/03/18 07/14/18 Previous Rx's Medication Instructions Recorded cetirizine 10 mg tablet 10 mg PO DAILY PRN #30 tab 05/27/18 Acetaminophen [Acetaminophen 325mg 650 mg PO Q4HP PRN tablet 07/19/18 tab] Atorvastatin Calcium [Lipitor 40mg 40 mg PO QDAY #90 tab 07/19/18 Tablet] Carvedilol [Coreg 12.5mg 18.75 mg PO BID 30 Days tablet 07/19/18 Tablet] Furosemide [Lasix 40mg tablet] 40 mg PO DAILY 30 Days #30 tablet 07/19/18 Losartan/Hydrochlorothiazide 1 tab PO DAILY 30 Days #30 tablet 07/19/18 [Hyzaar 100-12.5 Tablet] Potassium Chloride [Klor-con 20 20 meq PO QDAY 30 Days #30 tab 07/19/18 mEq tablet] Allergies Allergy/AdvReac Type Severity Reaction Status Date / Time No Known Allergies Allergy Verified 07/14/18 13:35 [facility] History - Hepatitis A Screen Drug use history?: No High risk sexual behaviors?: No History of sexually transmitted infection?: No Currently employed?: No Childcare worker?: No Do you have indoor plumbing?: Yes Do you have electricity?: Yes Attestation statement:: This patient has been screened for Hepatitis A risk factors. I have reviewed the patient's past medical history: Yes Medical History: Reports:: Cancer, Cardiomyopathy, Coronary Artery Disease, Hyperlipidemia, Hypertension, Internal Pacemaker, Myocardial Infarction Denies:: Diabetes Mellitus Type 1, Diabetes Mellitus Type 2, MRSA, Seizures Other Medical History: Denies: Blood Transfusion Reaction Other Surgeries: Yes: CABG, Cardiac Catheterization, Pacemaker, Other Amputation: No Fractures: No - Social History Smoking Status: Former smoker Tobacco Type: cigarettes # Packs/Day (cigarettes): 1 #Yrs smoked (if former smoker): 50 Alcohol Intake: never Alcohol Intake Frequency:: holidays/special occasions only Substance Use Type: denies use Occupational Status: retired Housing: house Household Members: significant other - Psychiatric History Expresses thoughts of harming self/others: None Suicide Plan Description: No Plan Family Hx:: No significant family history ROS Obtained: Yes All systems reviewed & no additional complaints - Constitutional Constitutional: Reports chills, Reports fever(s) - ENT Ears, Nose, Mouth, and Throat: Denies sore throat, Denies throat swelling - Cardiovascular Cardiovascular: Reports diaphoresis, Reports dyspnea, Reports dyspnea on exertion - Respiratory Respiratory: Yes chest congestion, Yes cough, Yes dyspnea on exertion - Gastrointestinal Gastrointestingal: Denies: abdominal pain, diarrhea, nausea, vomiting - Musculoskeletal Musculoskeletal: Denies decreased muscle mass, Denies limited range of motion, Denies muscle aches - Integumentary/Breasts Skin/Breast: Denies skin pain - Neurologic Neurologic: Denies headache(s), Reports weakness - Hematologic/Lymphatic Henatologic/Lymphatic: Denies easy bleeding, Denies easy bruising Physical Exam - General General appearance: alert, in no apparent distress - Head Head exam: atraumatic, normocephalic, normal inspection - Eye Eye exam: Present: normal appearance, PERRL, EOMI - ENT ENT exam: Present: normal exam, normal oropharynx, mucous membranes moist, TM's normal bilaterally, normal external ear exam - Chest Chest inspection: Present: normal inspection, symmetric chest wall rise. Absent: tenderness - Respiratory Respiratory exam: Present: normal lung sounds bilaterally. Absent: respiratory distress - Cardiovascular Cardiovascular exam: Present: regular rate, normal rhythm. Absent: JVD - Abdominal Exam Abdominal exam: Present: soft - Extremities Exam Extremities exam: Present: normal inspection, full ROM, normal capillary refill. Absent: calf tenderness - Back Exam Back exam: Present: normal inspection. Absent: tenderness - Neurological Exam Neurological exam: Present: alert, oriented X3 - Psychiatric Psychiatric exam: Present: normal affect, normal mood - Skin Skin exam: Present: warm, dry, intact, normal color
[2018-07-14 16:11] LABS: Basophils % 0.5 % (0.1-2.0); Eosinophils # 0.3 K/mm3 (0.0-0.4); Eosinophils % 4.4 % (0.1-12.0); Hematocrit 38.9 % (42.0-52.0); Hemoglobin 13.1 g/dL (14.1-18.0); Lymphocytes # 1.5 K/mm3 (0.7-4.5); Mean Corpuscular HGB Conc 33.8 g/dL (31.8-35.4); Mean Corpuscular Hemoglobin 32.2 pg (27.0-31.2); Mean Corpuscular Volume 95.2 fl (80-94); Mean Platelet Volume 7.4 fl (7.4-10.4); Monocytes # 0.5 K/mm3 (0.1-1.0); Monocytes % 7.9 % (1.7-9.3); Neutrophils # 4.3 K/mm3 (1.8-7.8); Neutrophils % 64.3 % (37.0-80.0); Platelet Count 274 K/mm3 (142-424); Red Blood Count 4.09 M/mm3 (4.60-6.20); Red Cell Distribution Width 13.5 % (11.5-17.5); White Blood Count 6.7 K/mm3 (4.8-10.8)
[2018-07-14 16:15] LABS: Anion Gap 12.3 mEq/L (5-15); Potassium 3.3 mmoL/L (3.5-5.1)
--- NOTE | 2018-07-14 21:52 | History & Physical Report ---
*Admission Date: 07/14/18 *Chief complaint: sob *History of present illness: this wm presented to pcp office with persistant resp sx despite op abx and steroids - has past hx of tob use and element of copd - he was sent to ed sec to continued sxhas been on antibiotics for over one months, reports having been recently diagnosed with pneumonia. Pt was seen by Perlita Gamboa earlier today and advised to come to the ER.pt with abn cxr and was admitted for al [facility] History I have reviewed the patient's past medical history: Yes Medical History: Reports:: Cardiomyopathy, Coronary Artery Disease, Hyperlipidemia, Hypertension, Internal Pacemaker, Myocardial Infarction Denies:: Cancer, Diabetes Mellitus Type 1, Diabetes Mellitus Type 2, MRSA, Seizures *Have you ever received a pneumonia vaccine?: Yes *Have you received a flu vaccine this season?: Yes Other Medical History: Denies: Blood Transfusion Reaction Other Surgeries: Yes: CABG, Cardiac Catheterization, Pacemaker, Other Amputation: No Fractures: No - *Social History Educational Level: Completed Grade School Smoking Status: Former smoker Tobacco Type: cigarettes # Packs/Day (cigarettes): 1 #Yrs smoked (if former smoker): 50 Alcohol Intake: never Alcohol Intake Frequency:: holidays/special occasions only Substance Use Type: denies use *Occupational Status:: retired Housing: house Household Members: significant other *Travel in the last 8 weeks: None - Psychiatric History Expresses thoughts of harming self/others: None Suicide Plan Description: No Plan Family Hx:: No significant family history Review of Systems - Review of Systems Review of systems:: pertinent systems reviewed and negative unless documented below - Constitutional Reports lack of energy, Reports weakness - Eyes Denies change in vision - ENT Denies sore throat - *Cardiovascular Reports shortness of breath, Denies chest pain with activity - *Respiratory Reports change in phlegm color, Reports cough, Denies coughing up blood - *Gastrointestinal Denies abdominal pain - *Genitourinary Denies blood in urine - *Musculoskeletal Denies joint pain - Integumentary/Breasts Denies rash - *Neurologic Reports weakness, Denies headache(s) - Psychiatric Denies anxiety Meds Home Medications Medication Instructions Recorded Confirmed Type cetirizine 10 mg tablet 10 mg PO DAILY PRN #30 tab 05/27/18 07/14/18 Rx aspirin 81 mg chewable tablet 81 mg PO DAILY tab 06/03/18 07/14/18 History atorvastatin 40 mg tablet 40 mg PO QDAY #90 tab 06/09/18 07/14/18 Rx carvedilol 12.5 mg tablet 12.5 mg PO BID #180 tab 06/09/18 07/14/18 Rx doxazosin 2 mg tablet 2 mg PO QDAY #90 tab 06/09/18 07/14/18 Rx potassium chloride ER 20 mEq 20 meq PO QDAY #90 tab 06/09/18 07/14/18 Rx tablet,extended release(part/cryst) Losartan/Hydrochlorothiazide 1 tab PO DAILY 07/14/18 07/14/18 History [Hyzaar 100-12.5 Tablet] Allergies Allergy/AdvReac Type Severity Reaction Status Date / Time No Known Allergies Allergy Verified 07/14/18 13:35 Exam Vital signs and Labs for Last 24 Hours: Temp Pulse Resp BP Pulse Ox 98.0 F 84 20 124/77 92 L 07/14/18 19:59 07/14/18 19:59 07/14/18 19:59 07/14/18 19:59 07/14/18 19:59 Laboratory Results - last 24 hr 07/14/18 15:45: WBC 6.7, RBC 4.09 L, Hgb 13.1 L, Hct 38.9 L, MCV 95.2 H, MCH 32.2 H, MCHC 33.8, RDW 13.5, Plt Count 274, MPV 7.4, Neut % (Auto) 64.3, Lymph % (Auto) 23.0, [place] % (Auto) 7.9, Eos % (Auto) 4.4, Baso % (Auto) 0.5, Neut # (Auto) 4.3, Lymph # (Auto) 1.5, [place] # (Auto) 0.5, Eos # (Auto) 0.3, Baso # (Auto) 0.0 07/14/18 15:45: Sodium 145, Potassium 3.3 L, Chloride 104, Carbon Dioxide 32, Anion Gap 12.3, BUN 13, Creatinine 1.09, Estimated Creat Clear 91, Estimated GFR 66, Est GFR ( Amer) 79, Glucose 119 H, Calcium 9.0 07/14/18 15:45: Lactate 1.1 I & O for Last 24 hours: Intake & Output 07/12/18 07/13/18 07/14/18 07/15/18 11:59 11:59 11:59 11:59 Intake Total 240 / 240 Balance 240 / 240 Weight 251 lb 2 oz Microbiology Reports for the Last 24 Hours: Microbiology 07/14/18 16:01 Sputum - Expectorated Sputum Gram Stain - Final - Constitutional no acute distress, obese - *Routine HEENT Exam Head: Present: normocephalic Eye: Present: EOMI, PERRL. Absent: conjunctival icterus ENT: Present: mucous membranes dry - *Routine Neck Exam Present: supple - *Routine Respiratory Exam Present: rhonchi. Absent: respiratory distress - *Routine Cardiovascular Exam Present: RRR, murmur, S4 - *Routine Abdominal Exam Present: soft - *Routine Extremities Exam Absent: edema - *Routine Skin Exam Present: intact - *Routine Neurological Exam Present: alert, oriented X3, CN II-XII intact - Routine Psychiatric Exam Present: normal affect Assessment and Plan (1) Obesity (BMI 30.0-34.9) Current visit: Yes Status: Acute Category: Medical Code(s): E66.9 - Obesity, unspecified (2) PNA (pneumonia) Current visit: Yes Status: Acute Qualifiers: Pneumonia type: due to unspecified organism Laterality: right Lung location: lower lobe of lung Qualified Code(s): J18.1 - Lobar pneumonia, unspecified organism Category: Medical Code(s): J18.9 - Pneumonia, unspecified organism (3) Automatic implantable cardioverter-defibrillator in situ Current visit: No Status: Chronic Category: Medical Code(s): Z95.810 - Presence of automatic (implantable) cardiac defibrillator (4) COPD (chronic obstructive pulmonary disease) Current visit: No Status: Acute Category: Medical Code(s): J44.9 - Chronic obstructive pulmonary disease, unspecified (5) CAD (coronary artery disease) Current visit: No Status: Chronic Qualifiers: Category: Medical Code(s): I25.10 - Atherosclerotic heart disease of [place] coronary artery without angina pectoris
[2018-07-15 06:01] LABS: Basophils % 0.1 % (0.1-2.0); Hematocrit 37.5 % (42.0-52.0); Hemoglobin 12.7 g/dL (14.1-18.0); Lymphocytes # 0.9 K/mm3 (0.7-4.5); Lymphocytes % 12.4 % (10-50); Mean Corpuscular HGB Conc 33.9 g/dL (31.8-35.4); Mean Corpuscular Hemoglobin 31.8 pg (27.0-31.2); Mean Corpuscular Volume 93.9 fl (80-94); Mean Platelet Volume 7.3 fl (7.4-10.4); Monocytes # 0.2 K/mm3 (0.1-1.0); Monocytes % 2.8 % (1.7-9.3); Neutrophils # 6.2 K/mm3 (1.8-7.8); Neutrophils % 84.7 % (37.0-80.0); Platelet Count 243 K/mm3 (142-424); Red Blood Count 3.99 M/mm3 (4.60-6.20); Red Cell Distribution Width 13.4 % (11.5-17.5); White Blood Count 7.3 K/mm3 (4.8-10.8)
[2018-07-15 06:07] LABS: Anion Gap 15.5 mEq/L (5-15); Calcium 8.5 mg/dL (8.5-10.1); Potassium 3.5 mmoL/L (3.5-5.1)
--- NOTE | 2018-07-15 07:44 | Pharmacy Consult Notes ---
[facility] Pharmacy VTE Monitoring - Patient Demographics Admission date: 07/14/18 Report Date: 07/15/18 Time: 07:43 Allergies/Adverse Reactions: Patient Allergies No Known Allergies Allergy (Verified 07/14/18 13:35) Height: 1.93 m Weight: 113.398 kg Patient Problems: Current Active Problems PNA (pneumonia) (Acute) Obesity (BMI 30.0-34.9) (Acute) - VTE Risk Labs: VTE Related Lab Results Hgb 12.7 g/dL (14.1-18.0) L 07/15/18 05:26 Hct 37.5 % (42.0-52.0) L 07/15/18 05:26 Plt Count 243 K/mm3 (142-424) 07/15/18 05:26 BUN 13 mg/dL (7-18) 07/15/18 05:26 Creatinine 1.12 mg/dL (0.70-1.30) 07/15/18 05:26 Estimated Creat Clear 89 mL/min (50-200) 07/15/18 05:26 VTE Score: 3 VTE Risk Level: Low Risk - Prophylaxis VTE Prophylaxis Ordered?: Yes Types of VTE Prophylaxis: TEDS Knee High Location of Applied Device: Bilateral Lower Extremeties - VTE Diagnosis Confirmed Treatment or plan recommended: Continue Current Treatment
--- NOTE | 2018-07-15 09:45 | Progress Note ---
Internal Medicine - PN: Subj *Date: 07/15/18 *Time: 09:44 Interval history: Patient states he feels better today Exam Vital signs and Labs for Last 24 Hours: Temp Pulse Resp BP Pulse Ox 98.3 F 89 20 149/88 H 91 L 07/15/18 08:00 07/15/18 08:00 07/15/18 08:00 07/15/18 08:00 07/15/18 08:00 Laboratory Results - last 24 hr 07/14/18 15:45: WBC 6.7, RBC 4.09 L, Hgb 13.1 L, Hct 38.9 L, MCV 95.2 H, MCH 32.2 H, MCHC 33.8, RDW 13.5, Plt Count 274, MPV 7.4, Neut % (Auto) 64.3, Lymph % (Auto) 23.0, [place] % (Auto) 7.9, Eos % (Auto) 4.4, Baso % (Auto) 0.5, Neut # (Auto) 4.3, Lymph # (Auto) 1.5, [place] # (Auto) 0.5, Eos # (Auto) 0.3, Baso # (Auto) 0.0 07/14/18 15:45: Sodium 145, Potassium 3.3 L, Chloride 104, Carbon Dioxide 32, Anion Gap 12.3, BUN 13, Creatinine 1.09, Estimated Creat Clear 91, Estimated GFR 66, Est GFR ( Amer) 79, Glucose 119 H, Calcium 9.0 07/14/18 15:45: Lactate 1.1 07/15/18 05:26: WBC 7.3, RBC 3.99 L, Hgb 12.7 L, Hct 37.5 L, MCV 93.9, MCH 31.8 H, MCHC 33.9, RDW 13.4, Plt Count 243, MPV 7.3 L, Neut % (Auto) 84.7 H, Lymph % (Auto) 12.4, [place] % (Auto) 2.8, Eos % (Auto) 0.0 L, Baso % (Auto) 0.1, Neut # (Auto) 6.2, Lymph # (Auto) 0.9, [place] # (Auto) 0.2, Eos # (Auto) 0.0, Baso # (Auto) 0.0 07/15/18 05:26: Sodium 144, Potassium 3.5, Chloride 104, Carbon Dioxide 28, Anion Gap 15.5 H, BUN 13, Creatinine 1.12, Estimated Creat Clear 89, Estimated GFR 64, Est GFR ( Amer) 77, Glucose 179 H D, Calcium 8.5 I & O for Last 24 hours: Intake & Output 07/12/18 07/13/18 07/14/18 07/15/18 11:59 11:59 11:59 11:59 Intake Total 1279 / 1279 Output Total 2200 / 2200 Balance -921 / -921 Weight 250 lb Microbiology Reports for the Last 24 Hours: Microbiology 07/14/18 16:01 Sputum - Expectorated Sputum Gram Stain - Final 07/14/18 16:01 Sputum - Expectorated Sputum Sputum Culture - Preliminary - Constitutional no acute distress - *Routine HEENT Exam Head: Present: normocephalic Eye: Present: EOMI, PERRL ENT: Present: mucous membranes moist - *Routine Neck Exam Present: supple. Absent: lymphadenopathy - *Routine Respiratory Exam Present: CTA bilaterally, diminished air movement - *Routine Cardiovascular Exam Present: RRR Comments: Pacemaker - *Routine Abdominal Exam Present: soft, normoactive bowel sounds. Absent: tenderness - *Routine Extremities Exam Absent: cyanosis, clubbing, edema - *Routine Skin Exam Present: warm. Absent: rash - *Routine Neurological Exam Present: alert, oriented X3 - Routine Psychiatric Exam Present: normal affect Assessment and Plan (1) Obesity (BMI 30.0-34.9) Current visit: Yes Status: Acute Category: Medical Code(s): E66.9 - Obesity, unspecified (2) PNA (pneumonia) Current visit: Yes Status: Acute Qualifiers: Pneumonia type: due to unspecified organism Laterality: right Lung location: lower lobe of lung Qualified Code(s): J18.1 - Lobar pneumonia, unspecified organism Category: Medical Code(s): J18.9 - Pneumonia, unspecified organism (3) Automatic implantable cardioverter-defibrillator in situ Current visit: No Status: Chronic Category: Medical Code(s): Z95.810 - Presence of automatic (implantable) cardiac defibrillator (4) COPD (chronic obstructive pulmonary disease) Current visit: No Status: Acute Category: Medical Code(s): J44.9 - Chronic obstructive pulmonary disease, unspecified (5) CAD (coronary artery disease) Current visit: No Status: Chronic Qualifiers: Category: Medical Code(s): I25.10 - Atherosclerotic heart disease of [place] coronary artery without angina pectoris - Assessment and plan all Dx Assessment and Plan for all problems:: Rounded with Dr. Morel all orders per [facility] consult, echo, stress test,
--- NOTE | 2018-07-15 13:58 | Consult Report ---
History of Present Illness Consult date: 07/15/18 Consult reason: shortness of breath Chief complaint: Shortness of breath Additional Medical History:: 1. Pneumonia (07/22) 2. Chronic Obstructive Pulmonary Disease a. History of tobacco abuse. Quit smoking 6 months ago 3. Coronary artery disease. a. Stenting of the mid and distal dominant RCA (2017) b. History of CABG (unknown) 4. History of lung disease. 5. Biventricular pacemaker with defibrillator a. Placed 06/20 6. Essential hypertension 7. Hyperlipidemia a. LDL 89 (2018) b. Patient is on statin therapy. History of present illness: 78-year-old male admitted to [facility] with a diagnosis of pneumonia. Patient had been following up with PCP and had been on antibiotics and steroids but was not improving his symptoms. He had been complaining of increased shortness of breath with a hacking cough for the past several weeks. Denies fever. Patient denies chest pain, tightness or pressure. Patient complains of increased shortness of breath especially with exertion. Patient states he is unable to walk more than 100 feet without becoming real short of breath and taking a rest. Patient denies increased swelling of the lower extremities. Patient does have known coronary artery disease. Status post ALAINA on 10/2016. Patient has biventricular pacemaker with defibrillator. The device was placed in 2018. Last download showed one episode of nonsustained event, AP 32%, Corvue negative, BP 93% and a battery life is 6.4 years. Patient will be due a download in the next 1-2 months. Patient does have history of CA BG x3 vessel. History of JOHN which is stable. Last echocardiogram from 10/19 revealed EF approximately 40% with segmental wall motion abnormality. Patient has history of hypertension and hyperlipidemia Initial lab work was performed upon admission. Labs were unremarkable. panel monitor revealed paced rhythm with an occasional PVC with a heart rate of 83 bpm. Case was discussed with Dr. Morel. Recommend Lexiscan Myoview and echocardiogram today to determine if his shortness of breath was cardiac related. Pending on results of Lexiscan Myoview and echocardiogram further testing may be recommended. Thank you for giving cardiology the opportunity to participate in the care of this patient. [facility] History Medical History: Reports:: Cardiomyopathy, Coronary Artery Disease, Hyperlipidemia, Hypertension, Internal Pacemaker, Myocardial Infarction Denies:: Cancer, Diabetes Mellitus Type 1, Diabetes Mellitus Type 2, MRSA, Seizures *Have you ever received a pneumonia vaccine?: Yes *Have you received a flu vaccine this season?: Yes Other Medical History: Denies: Blood Transfusion Reaction Other Surgeries: Yes: CABG, Cardiac Catheterization, Pacemaker, Other Amputation: No Fractures: No - *Social History Educational Level: Completed Grade School Smoking Status: Former smoker Tobacco Type: cigarettes # Packs/Day (cigarettes): 1 #Yrs smoked (if former smoker): 50 Alcohol Intake: never Alcohol Intake Frequency:: holidays/special occasions only Substance Use Type: denies use *Occupational Status:: retired Housing: house Household Members: significant other *Travel in the last 8 weeks: None - Psychiatric History Expresses thoughts of harming self/others: None Suicide Plan Description: No Plan Family Hx:: No significant family history Meds Home Medications Medication Instructions Recorded Confirmed Type cetirizine 10 mg tablet 10 mg PO DAILY PRN #30 tab 05/27/18 07/14/18 Rx aspirin 81 mg chewable tablet 81 mg PO DAILY tab 06/03/18 07/14/18 History atorvastatin 40 mg tablet 40 mg PO QDAY #90 tab 06/09/18 07/14/18 Rx carvedilol 12.5 mg tablet 12.5 mg PO BID #180 tab 06/09/18 07/14/18 Rx doxazosin 2 mg tablet 2 mg PO QDAY #90 tab 06/09/18 07/14/18 Rx potassium chloride ER 20 mEq 20 meq PO QDAY #90 tab 06/09/18 07/14/18 Rx tablet,extended release(part/cryst) Losartan/Hydrochlorothiazide 1 tab PO DAILY 07/14/18 07/14/18 History [Hyzaar 100-12.5 Tablet] Allergies Allergy/AdvReac Type Severity Reaction Status Date / Time No Known Allergies Allergy Verified 07/14/18 13:35 Review of Systems - Review of Systems Review of systems:: pertinent systems reviewed and negative unless documented below - Constitutional Reports fatigue - *Cardiovascular Reports shortness of breath, Reports shortness of breath with activity - *Respiratory Reports cough, Reports shortness of breath - *Gastrointestinal Reports bloating - *Neurologic Reports weakness, Denies dizziness, Denies headache(s) Exam Vital signs and Labs for Last 24 Hours: Temp Pulse Resp BP Pulse Ox 97.7 F 76 18 138/90 94 L 07/15/18 11:17 07/15/18 11:17 07/15/18 11:17 07/15/18 11:17 07/15/18 11:17 Laboratory Results - last 24 hr 07/14/18 15:45: WBC 6.7, RBC 4.09 L, Hgb 13.1 L, Hct 38.9 L, MCV 95.2 H, MCH 32.2 H, MCHC 33.8, RDW 13.5, Plt Count 274, MPV 7.4, Neut % (Auto) 64.3, Lymph % (Auto) 23.0, [place] % (Auto) 7.9, Eos % (Auto) 4.4, Baso % (Auto) 0.5, Neut # (Auto) 4.3, Lymph # (Auto) 1.5, [place] # (Auto) 0.5, Eos # (Auto) 0.3, Baso # (Auto) 0.0 07/14/18 15:45: Sodium 145, Potassium 3.3 L, Chloride 104, Carbon Dioxide 32, Anion Gap 12.3, BUN 13, Creatinine 1.09, Estimated Creat Clear 91, Estimated GFR 66, Est GFR ( Amer) 79, Glucose 119 H, Calcium 9.0 07/14/18 15:45: Lactate 1.1 07/15/18 05:26: WBC 7.3, RBC 3.99 L, Hgb 12.7 L, Hct 37.5 L, MCV 93.9, MCH 31.8 H, MCHC 33.9, RDW 13.4, Plt Count 243, MPV 7.3 L, Neut % (Auto) 84.7 H, Lymph % (Auto) 12.4, [place] % (Auto) 2.8, Eos % (Auto) 0.0 L, Baso % (Auto) 0.1, Neut # (Auto) 6.2, Lymph # (Auto) 0.9, [place] # (Auto) 0.2, Eos # (Auto) 0.0, Baso # (Auto) 0.0 07/15/18 05:26: Sodium 144, Potassium 3.5, Chloride 104, Carbon Dioxide 28, Anion Gap 15.5 H, BUN 13, Creatinine 1.12, Estimated Creat Clear 89, Estimated GFR 64, Est GFR ( Amer) 77, Glucose 179 H D, Calcium 8.5 I & O for Last 24 hours: Intake & Output 07/12/18 07/13/18 07/14/18 07/15/18 23:59 23:59 23:59 23:59 Intake Total 240 / 240 1039 / 1039 Output Total 900 / 900 1300 / 1300 Balance -660 / -660 -261 / -261 Weight 251 lb 2 oz 250 lb Microbiology Reports for the Last 24 Hours: Microbiology 07/14/18 16:01 Sputum - Expectorated Sputum Gram Stain - Final 07/14/18 16:01 Sputum - Expectorated Sputum Sputum Culture - Preliminary - Constitutional mild distress, obese, cooperative - *Routine HEENT Exam Head: Present: normocephalic ENT: Present: mucous membranes moist - *Routine Neck Exam Present: supple, full ROM, normal carotid upstroke. Absent: JVD, carotid bruit - Routine Chest/Breast/Axilla Exam Chest wall: Present: tenderness, pacemaker - *Routine Respiratory Exam Present: accessory muscle use, CTA bilaterally. Absent: respiratory distress, wheezes - *Routine Cardiovascular Exam Present: RRR, Normal S1, Normal S2. Absent: murmur, click, JVD - *Routine Abdominal Exam Present: soft, normoactive bowel sounds, distended - *Routine Extremities Exam Present: full ROM, pulses intact, normal capillary refill. Absent: cyanosis, clubbing, edema - Routine Back/Spine/Pelvis Exam Back/Spine: Present: full ROM. Absent: CVA tenderness - *Routine Skin Exam Present: intact, dry, warm. Absent: cyanosis, erythema - *Routine Neurological Exam Present: alert, oriented X3, CN II-XII intact, normal reflexes, moving all extremities, normal speech - Routine Psychiatric Exam Present: normal affect, normal thought process, cooperative Assessment and Plan (1) Obesity (BMI 30.0-34.9) Current visit: Yes Status: Acute Category: Medical Code(s): E66.9 - Obesity, unspecified (2) PNA (pneumonia) Current visit: Yes Status: Acute Qualifiers: Pneumonia type: due to unspecified organism Laterality: right Lung location: lower lobe of lung Qualified Code(s): J18.1 - Lobar pneumonia, unspecified organism Category: Medical Code(s): J18.9 - Pneumonia, unspecified organism (3) Automatic implantable cardioverter-defibrillator in situ Current visit: No Status: Chronic Category: Medical Code(s): Z95.810 - Presence of automatic (implantable) cardiac defibrillator (4) COPD (chronic obstructive pulmonary disease) Current visit: No Status: Acute Category: Medical Code(s): J44.9 - Chronic obstructive pulmonary disease, unspecified (5) CAD (coronary artery disease) Current visit: No Status: Chronic Qualifiers: Category: Medical Code(s): I25.10 - Atherosclerotic heart disease of [place] coronary artery without angina pectoris - Assessment and plan all Dx Assessment and Plan for all problems:: Plan: 1. Schedule Lexiscan Myoview today due to shortness of breath and CAD. 2. Obtain echocardiogram to assess LV function and valve status. 3. Further recommendations may be recommended pending on test results of the Lexiscan Myoview and echocardiogram.
--- NOTE | 2018-07-15 15:28 | Cardiology Report ---
PROCEDURE: 2-D M-mode and color Doppler study INDICATIONS FOR THE TEST: Chest pain COPD+ Heart Murmur Tobacco SmokingEX Palpitations Fatigue Syncope Edema Hypertension+Diabetes Mellitus Rheumatic Fever SOB+WILKS Obesity+Hyperlipidemia+ Family History HD Additional History pneumonia, CAD, hx of CABG, CM, AICD PATIENT INFORMATION HEIGHT: 76 WEIGHT: 250 GENDER: Male B/P: 149/88 2-D/M-MODE INTERPRETATION: 2-D MEASUREMENTS OBSERVED VALUES IN CMS Right Ventricular Dimension (RVDd) 3.0 Interventricular Septum (Thickness)(IVsd) 1.1 Left Ventricular Internal Dimensions(LVIDd) 7.2 Left Ventricular Posterior Wall (Thickness)(LVPWd) 1.1 Aortic Root 3.9 Aortic Cusp Separation 2.2 Left Atrial Dimensions (LAD) 4.3 2D 1. Left atrium is mildly enlarged, left ventricle is normal size, mild concentric left ventricular hypertrophy, visually estimated ejection fraction approximately 40-45%, there is marked abnormal septal motion. 2. The right atrium and right ventricle are mildly enlarged with normal contractility. There is a pacemaker lead seen in the right ventricle. 3. The aortic valve is thickened and gastritis leaflet continue to display mobility. 4. The mitral and tricuspid valve leaflets are minimally thickened. 5. The pulmonic valve is poorly visualized. 6. No significant pericardial effusion noted. DOPPLER INTERROGATION: Doppler interrogation of the aortic, mitral and tricuspid valvular presence of moderate mitral and tricuspid regurgitation, tricuspid regurgitation jet velocity is inadequate for calculation of the right ventricular systolic pressure, diastolic parameters are inconclusive. CONCLUSION: 1. The left atrium, normal left ventricular size, mild concentric left ventricular hypertrophy, visually estimated ejection fraction approximately 40-45%, there is marked abnormal septal motion. Diastolic parameters are inconclusive. 2. Thickened and calcified aortic valve without aortic stenosis aortic insufficiency 3. Moderate mitral and mild tricuspid regurgitation 4. No significant pericardial effusion noted.
[2018-07-16 06:18] LABS: Basophils % 0.2 % (0.1-2.0); Eosinophils # 0.1 K/mm3 (0.0-0.4); Eosinophils % 1.2 % (0.1-12.0); Hematocrit 35.1 % (42.0-52.0); Hemoglobin 11.9 g/dL (14.1-18.0); Lymphocytes # 1.5 K/mm3 (0.7-4.5); Lymphocytes % 19.3 % (10-50); Mean Corpuscular Hemoglobin 32.2 pg (27.0-31.2); Mean Corpuscular Volume 94.7 fl (80-94); Mean Platelet Volume 7.3 fl (7.4-10.4); Monocytes # 0.5 K/mm3 (0.1-1.0); Monocytes % 5.6 % (1.7-9.3); Neutrophils # 5.8 K/mm3 (1.8-7.8); Neutrophils % 73.7 % (37.0-80.0); Platelet Count 245 K/mm3 (142-424); Red Blood Count 3.71 M/mm3 (4.60-6.20); Red Cell Distribution Width 13.7 % (11.5-17.5); White Blood Count 7.9 K/mm3 (4.8-10.8)
[2018-07-16 06:45] LABS: Albumin Level 3.3 gm/dL (3.4-5.0); Albumin/Globulin Ratio 1.3 (1.1-1.8); Anion Gap 10.5 mEq/L (5-15); Bilirubin,Total 0.6 mg/dL (0.2-1.0); Calcium 8.3 mg/dL (8.5-10.1); Globulin 2.5 gm/dl (1.3-3.2); Potassium 3.5 mmoL/L (3.5-5.1); Total Protein,Serum 5.8 gm/dL (6.4-8.2)
--- NOTE | 2018-07-16 08:56 | Progress Note ---
Internal Medicine - PN: Subj *Date: 07/16/18 *Time: 08:53 Interval history: doing better-but with ongoing sig sob and exertional sob with min activity- reviewed echo/myoview and ct chest - and discussed with dr rosen Exam Vital signs and Labs for Last 24 Hours: Temp Pulse Resp BP Pulse Ox 97.7 F 73 20 157/96 H 94 L 07/16/18 08:00 07/16/18 08:00 07/16/18 08:00 07/16/18 08:00 07/16/18 08:00 Laboratory Results - last 24 hr 07/16/18 05:35: WBC 7.9, RBC 3.71 L, Hgb 11.9 L, Hct 35.1 L, MCV 94.7 H, MCH 32.2 H, MCHC 34.0, RDW 13.7, Plt Count 245, MPV 7.3 L, Neut % (Auto) 73.7, Lymph % (Auto) 19.3, [place] % (Auto) 5.6, Eos % (Auto) 1.2, Baso % (Auto) 0.2, Neut # (Auto) 5.8, Lymph # (Auto) 1.5, [place] # (Auto) 0.5, Eos # (Auto) 0.1, Baso # (Auto) 0.0 07/16/18 05:35: Sodium 147 H, Potassium 3.5, Chloride 108 H, Carbon Dioxide 32, Anion Gap 10.5, BUN 14, Creatinine 0.88 D, Estimated Creat Clear 100, Estimated GFR 84, Est GFR ( Amer) 102 D, Glucose 100, Calcium 8.3 L, Total Bilirubin 0.6, AST 16, ALT 20, Alkaline Phosphatase 54, Total Protein 5.8 L, Albumin 3.3 L, Globulin 2.5, Albumin/Globulin Ratio 1.3 I & O for Last 24 hours: Intake & Output 07/13/18 07/14/18 07/15/18 07/16/18 11:59 11:59 11:59 11:59 Intake Total 1279 / 1279 1546 / 1546 Output Total 2200 / 2200 1300 / 1300 Balance -921 / -921 246 / 246 Weight 250 lb 252 lb 3 oz Microbiology Reports for the Last 24 Hours: Microbiology 07/14/18 16:01 Sputum - Expectorated Sputum Gram Stain - Final 07/14/18 16:01 Sputum - Expectorated Sputum Sputum Culture - Preliminary - Constitutional no acute distress, obese - *Routine HEENT Exam Head: Present: normocephalic Eye: Present: EOMI, PERRL ENT: Present: mucous membranes dry - *Routine Neck Exam Present: supple. Absent: JVD - *Routine Respiratory Exam Present: decreased breath sounds, rhonchi, wheezes - *Routine Cardiovascular Exam Present: RRR, murmur, S4 - *Routine Abdominal Exam Present: soft - *Routine Extremities Exam Absent: calf tenderness - *Routine Skin Exam Present: intact - *Routine Neurological Exam Present: alert, oriented X3, CN II-XII intact - Routine Psychiatric Exam Present: normal affect Assessment and Plan (1) Obesity (BMI 30.0-34.9) Current visit: Yes Status: Acute Category: Medical Code(s): E66.9 - Obesity, unspecified (2) PNA (pneumonia) Current visit: Yes Status: Acute Qualifiers: Pneumonia type: due to unspecified organism Laterality: right Lung location: lower lobe of lung Qualified Code(s): J18.1 - Lobar pneumonia, unspecified organism Category: Medical Code(s): J18.9 - Pneumonia, unspecified organism (3) Automatic implantable cardioverter-defibrillator in situ Current visit: No Status: Chronic Category: Medical Code(s): Z95.810 - Presence of automatic (implantable) cardiac defibrillator (4) COPD (chronic obstructive pulmonary disease) Current visit: No Status: Acute Category: Medical Code(s): J44.9 - Chronic obstructive pulmonary disease, unspecified (5) CAD (coronary artery disease) Current visit: No Status: Chronic Qualifiers: Category: Medical Code(s): I25.10 - Atherosclerotic heart disease of [place] coronary artery without angina pectoris (6) Abnormal thallium stress test Current visit: Yes Status: Acute Category: Medical Code(s): R94.39 - Abnormal result of other cardiovascular function study
[2018-07-17 06:22] LABS: Hematocrit 36.5 % (42.0-52.0); Hemoglobin 12.2 g/dL (14.1-18.0); Lymphocytes # 0.8 K/mm3 (0.7-4.5); Lymphocytes % 9.1 % (10-50); Mean Corpuscular HGB Conc 33.2 g/dL (31.8-35.4); Mean Corpuscular Hemoglobin 31.8 pg (27.0-31.2); Mean Corpuscular Volume 95.6 fl (80-94); Mean Platelet Volume 7.5 fl (7.4-10.4); Monocytes # 0.2 K/mm3 (0.1-1.0); Monocytes % 2.6 % (1.7-9.3); Neutrophils # 8.2 K/mm3 (1.8-7.8); Neutrophils % 88.3 % (37.0-80.0); Platelet Count 261 K/mm3 (142-424); Red Blood Count 3.82 M/mm3 (4.60-6.20); Red Cell Distribution Width 13.5 % (11.5-17.5); White Blood Count 9.3 K/mm3 (4.8-10.8)
[2018-07-17 06:33] LABS: Albumin Level 3.5 gm/dL (3.4-5.0); Albumin/Globulin Ratio 1.3 (1.1-1.8); Anion Gap 13.6 mEq/L (5-15); Bilirubin,Total 0.5 mg/dL (0.2-1.0); Calcium 8.1 mg/dL (8.5-10.1); Globulin 2.6 gm/dl (1.3-3.2); Potassium 3.6 mmoL/L (3.5-5.1); Total Protein,Serum 6.1 gm/dL (6.4-8.2)
[2018-07-17 06:52] LABS: Lymphocytes % 7 % (10-50); Neutrophils % 91 % (42-76); Total Cells Counted 100
[2018-07-17 06:53] LABS: Polychromasia 1+
--- NOTE | 2018-07-17 09:32 | Progress Note ---
Internal Medicine - PN: Subj *Date: 07/17/18 *Time: 09:30 Interval history: doing ok but still has sob with limited exertion Exam Vital signs and Labs for Last 24 Hours: Temp Pulse Resp BP Pulse Ox 98.0 F 63 19 117/63 93 L 07/17/18 08:00 07/17/18 08:00 07/17/18 08:00 07/17/18 08:00 07/17/18 08:00 Laboratory Results - last 24 hr 07/16/18 09:50: Troponin I 0.05 07/17/18 05:30: WBC 9.3, RBC 3.82 L, Hgb 12.2 L, Hct 36.5 L, MCV 95.6 H, MCH 31.8 H, MCHC 33.2, RDW 13.5, Plt Count 261, MPV 7.5, Neut % (Auto) 88.3 H, Lymph % (Auto) 9.1 L, [place] % (Auto) 2.6, Eos % (Auto) 0.0 L, Baso % (Auto) 0.0 L, Neut # (Auto) 8.2 H, Lymph # (Auto) 0.8, [place] # (Auto) 0.2, Eos # (Auto) 0.0, Baso # (Auto) 0.0, Total Counted 100, Neutrophils % (Manual) 91 H, Band Neutrophils % 2.0, Lymphocytes % (Manual) 7 L, Platelet Estimate Normal, Polychromasia 1+, Poikilocytosis 1+ 07/17/18 05:30: Sodium 143, Potassium 3.6, Chloride 105, Carbon Dioxide 28, Anion Gap 13.6, BUN 15, Creatinine 1.10 D, Estimated Creat Clear 90, Estimated GFR 65, Est GFR ( Amer) 79 D, Glucose 200 H D, Calcium 8.1 L, Total Bilirubin 0.5, AST 17, ALT 21, Alkaline Phosphatase 55, Total Protein 6.1 L, Albumin 3.5, Globulin 2.6, Albumin/Globulin Ratio 1.3 I & O for Last 24 hours: Intake & Output 07/14/18 07/15/18 07/16/18 07/17/18 11:59 11:59 11:59 11:59 Intake Total 1279 / 1279 1696 / 1696 3277 / 3277 Output Total 2200 / 2200 1300 / 1300 1775 / 1775 Balance -921 / -921 396 / 396 1502 / 1502 Weight 250 lb 252 lb 3 oz 249 lb 8 oz Microbiology Reports for the Last 24 Hours: Microbiology 07/14/18 16:01 Sputum - Expectorated Sputum Gram Stain - Final 07/14/18 16:01 Sputum - Expectorated Sputum Sputum Culture - Final Normal Respiratory Jenna 07/14/18 15:45 Blood Blood Culture - Preliminary NO GROWTH AFTER 48 HOURS 07/14/18 15:45 Blood Blood Culture - Preliminary NO GROWTH AFTER 48 HOURS - Constitutional no acute distress - *Routine HEENT Exam Head: Present: normocephalic Eye: Present: EOMI, PERRL ENT: Present: mucous membranes dry - *Routine Neck Exam Present: supple. Absent: JVD - *Routine Respiratory Exam Present: prolonged expiratory phase, wheezes - *Routine Cardiovascular Exam Present: RRR, murmur, S4 - *Routine Abdominal Exam Present: soft - *Routine Extremities Exam Absent: edema, calf tenderness - *Routine Skin Exam Present: intact - *Routine Neurological Exam Present: alert, oriented X3, CN II-XII intact - Routine Psychiatric Exam Present: normal affect Assessment and Plan (1) Obesity (BMI 30.0-34.9) Current visit: Yes Status: Acute Category: Medical Code(s): E66.9 - Obesity, unspecified (2) PNA (pneumonia) Current visit: Yes Status: Acute Qualifiers: Pneumonia type: due to unspecified organism Laterality: right Lung location: lower lobe of lung Qualified Code(s): J18.1 - Lobar pneumonia, unspecified organism Category: Medical Code(s): J18.9 - Pneumonia, unspecified organism (3) Automatic implantable cardioverter-defibrillator in situ Current visit: No Status: Chronic Category: Medical Code(s): Z95.810 - Presence of automatic (implantable) cardiac defibrillator (4) COPD (chronic obstructive pulmonary disease) Current visit: No Status: Acute Category: Medical Code(s): J44.9 - Chronic obstructive pulmonary disease, unspecified (5) CAD (coronary artery disease) Current visit: No Status: Chronic Qualifiers: Category: Medical Code(s): I25.10 - Atherosclerotic heart disease of [place] coronary artery without angina pectoris (6) Abnormal thallium stress test Current visit: Yes Status: Acute Category: Medical Code(s): R94.39 - Abnormal result of other cardiovascular function study
[2018-07-17 09:49] LABS: Chol/HDL Ratio 2.7 (1-3.5)
[2018-07-18 04:47] LABS: Albumin Level 3.4 gm/dL (3.4-5.0); Albumin/Globulin Ratio 1.3 (1.1-1.8); Anion Gap 12.4 mEq/L (5-15); Bilirubin,Total 0.4 mg/dL (0.2-1.0); Calcium 8.2 mg/dL (8.5-10.1); Globulin 2.7 gm/dl (1.3-3.2); Potassium 3.4 mmoL/L (3.5-5.1); Total Protein,Serum 6.1 gm/dL (6.4-8.2)
[2018-07-18 05:09] LABS: Hematocrit 36.1 % (42.0-52.0); Hemoglobin 12.2 g/dL (14.1-18.0); Lymphocytes % 8.9 % (10-50); Mean Corpuscular HGB Conc 33.8 g/dL (31.8-35.4); Mean Corpuscular Volume 94.7 fl (80-94); Mean Platelet Volume 7.5 fl (7.4-10.4); Monocytes # 0.5 K/mm3 (0.1-1.0); Monocytes % 4.6 % (1.7-9.3); Neutrophils # 9.8 K/mm3 (1.8-7.8); Neutrophils % 86.4 % (37.0-80.0); Platelet Count 285 K/mm3 (142-424); Red Blood Count 3.82 M/mm3 (4.60-6.20); Red Cell Distribution Width 13.6 % (11.5-17.5); White Blood Count 11.4 K/mm3 (4.8-10.8)
[2018-07-18 05:26] LABS: Lymphocytes % 10 % (10-50); Monocytes % 3 % (2-9); Neutrophils % 80 % (42-76); Polychromasia 1+; Total Cells Counted 100
[2018-07-18 05:27] LABS: Rouleaux 2+
--- NOTE | 2018-07-18 08:59 | Progress Note ---
Internal Medicine - PN: Subj *Date: 07/18/18 *Time: 08:59 Exam Vital signs and Labs for Last 24 Hours: Temp Pulse Resp BP Pulse Ox 97.6 F 67 18 158/93 H 94 L 07/18/18 08:00 07/18/18 08:00 07/18/18 08:00 07/18/18 08:00 07/18/18 08:00 Laboratory Results - last 24 hr 07/17/18 06:30: Triglycerides 47, Cholesterol 138 L, LDL Cholesterol 78, VLDL Cholesterol 9, HDL Cholesterol 51, Cholesterol/HDL Ratio 2.7 07/18/18 04:20: WBC 11.4 H, RBC 3.82 L, Hgb 12.2 L, Hct 36.1 L, MCV 94.7 H, MCH 32.0 H, MCHC 33.8, RDW 13.6, Plt Count 285, MPV 7.5, Neut % (Auto) 86.4 H, Lymph % (Auto) 8.9 L, [place] % (Auto) 4.6, Eos % (Auto) 0.0 L, Baso % (Auto) 0.0 L, Neut # (Auto) 9.8 H, Lymph # (Auto) 1.0, [place] # (Auto) 0.5, Eos # (Auto) 0.0, Baso # (Auto) 0.0, Total Counted 100, Neutrophils % (Manual) 80 H, Band Neutrophils % 7.0, Lymphocytes % (Manual) 10, Monocytes % (Manual) 3, Platelet Estimate Normal, Polychromasia 1+, Rouleaux 2+ 07/18/18 04:20: Sodium 144, Potassium 3.4 L, Chloride 105, Carbon Dioxide 30, Anion Gap 12.4, BUN 17, Creatinine 0.93, Estimated Creat Clear 99, Estimated GFR 79, Est GFR ( Amer) 95 D, Glucose 142 H D, Calcium 8.2 L, Total Bilirubin 0.4, AST 9 L D, ALT 20, Alkaline Phosphatase 53, Total Protein 6.1 L, Albumin 3.4, Globulin 2.7, Albumin/Globulin Ratio 1.3 I & O for Last 24 hours: Intake & Output 07/15/18 07/16/18 07/17/18 07/18/18 23:59 23:59 23:59 23:59 Intake Total 1549 / 1549 3160 / 3160 3272 / 3272 1616 / 1616 Output Total 1500 / 1500 1100 / 1100 2975 / 2975 2200 / 2200 Balance 49 / 49 2059 / 2059 297 / 297 -584 / -584 Weight 113.398 kg 114.39 kg 113.171 kg 113.597 kg Microbiology Reports for the Last 24 Hours: Microbiology 07/14/18 16:01 Sputum - Expectorated Sputum Gram Stain - Final 07/14/18 16:01 Sputum - Expectorated Sputum Sputum Culture - Final Normal Respiratory Jenna Assessment and Plan (1) Obesity (BMI 30.0-34.9) Current visit: Yes Status: Acute Category: Medical Code(s): E66.9 - Obesity, unspecified (2) PNA (pneumonia) Current visit: Yes Status: Acute Qualifiers: Pneumonia type: due to unspecified organism Laterality: right Lung loc ation: lower lobe of lung Qualified Code(s): J18.1 - Lobar pneumonia, unspecified organism Category: Medical Code(s): J18.9 - Pneumonia, unspecified organism (3) Automatic implantable cardioverter-defibrillator in situ Current visit: No Status: Chronic Category: Medical Code(s): Z95.810 - Presence of automatic (implantable) cardiac defibrillator (4) COPD (chronic obstructive pulmonary disease) Current visit: No Status: Acute Category: Medical Code(s): J44.9 - Chronic obstructive pulmonary disease, unspecified (5) CAD (coronary artery disease) Current visit: No Status: Chronic Qualifiers: Category: Medical Code(s): I25.10 - Atherosclerotic heart disease of [place] coronary artery without angina pectoris (6) Abnormal thallium stress test Current visit: Yes Status: Acute Category: Medical Code(s): R94.39 - Abnormal result of other cardiovascular function study The patient's infection will respond to the chosen ABx?: Yes Is the patient receiving the right drug, dose, and route?: Yes Could a more targeted ABx be ordered?: No
--- NOTE | 2018-07-18 09:15 | Progress Note ---
Subjective Date: 07/18/18 Time: 09:12 Principal diagnosis: SOA Interval history: 78 yo WM admitted for SOA and history of treatment for pneumonia twice over the last 6 wks. He continues to have SOA with just walking to the bathroom and back and even with conversation at times. CT of chest showed: 1. Centrilobular emphysema/COPD with chronic changes. 2. No evidence of consolidation or mass in the right lower lobe. The radiographic abnormality may be due to overlying summation density or an area of consolidation or atelectasis which has cleared. 3. Mild prominence of the ascending aorta 4.4 cm Stress test showed: 1. The EKG portion of the Lexiscan Myoview is nondiagnostic. 2. Scintigraphic evidence of myocardial scarring involving the anterolateral wall without significant kaylin-infarct ischemia, computer derived ejection fraction 37% segmental wall motion abnormality described above, right ventricle is normal size and contractility. 3. Abnormal Lexiscan Myoview study Echo showed: 1. The left atrium, normal left ventricular size, mild concentric left ventricular hypertrophy, visually estimated ejection fraction approximately 40-45%, there is marked abnormal septal motion. Diastolic parameters are inconclusive. 2. Thickened and calcified aortic valve without aortic stenosis aortic insufficiency 3. Moderate mitral and mild tricuspid regurgitation 4. No significant pericardial effusion noted Exam Vital signs and Labs for Last 24 Hours: Temp Pulse Resp BP Pulse Ox 97.6 F 67 18 158/93 H 94 L 07/18/18 08:00 07/18/18 08:00 07/18/18 08:00 07/18/18 08:00 07/18/18 08:00 Laboratory Results - last 24 hr 07/17/18 06:30: Triglycerides 47, Cholesterol 138 L, LDL Cholesterol 78, VLDL Cholesterol 9, HDL Cholesterol 51, Cholesterol/HDL Ratio 2.7 07/18/18 04:20: WBC 11.4 H, RBC 3.82 L, Hgb 12.2 L, Hct 36.1 L, MCV 94.7 H, MCH 32.0 H, MCHC 33.8, RDW 13.6, Plt Count 285, MPV 7.5, Neut % (Auto) 86.4 H, Lymph % (Auto) 8.9 L, [place] % (Auto) 4.6, Eos % (Auto) 0.0 L, Baso % (Auto) 0.0 L, Neut # (Auto) 9.8 H, Lymph # (Auto) 1.0, [place] # (Auto) 0.5, Eos # (Auto) 0.0, Baso # (Auto) 0.0, Total Counted 100, Neutrophils % (Manual) 80 H, Band Neutrophils % 7.0, Lymphocytes % (Manual) 10, Monocytes % (Manual) 3, Platelet Estimate Normal, Polychromasia 1+, Rouleaux 2+ 07/18/18 04:20: Sodium 144, Potassium 3.4 L, Chloride 105, Carbon Dioxide 30, Anion Gap 12.4, BUN 17, Creatinine 0.93, Estimated Creat Clear 99, Estimated GFR 79, Est GFR ( Amer) 95 D, Glucose 142 H D, Calcium 8.2 L, Total Bilirubin 0.4, AST 9 L D, ALT 20, Alkaline Phosphatase 53, Total Protein 6.1 L, Albumin 3.4, Globulin 2.7, Albumin/Globulin Ratio 1.3 I & O for Last 24 hours: Intake & Output 07/15/18 07/16/18 07/17/18 07/18/18 11:59 11:59 11:59 11:59 Intake Total 1279 / 1279 1696 / 1696 3427 / 3427 3435 / 3435 Output Total 2200 / 2200 1300 / 1300 1775 / 1775 3400 / 3400 Balance -921 / -921 396 / 396 1652 / 1652 35 / 35 Weight 250 lb 252 lb 3 oz 249 lb 8 oz 250 lb 7 oz Microbiology Reports for the Last 24 Hours: Microbiology 07/14/18 16:01 Sputum - Expectorated Sputum Gram Stain - Final 07/14/18 16:01 Sputum - Expectorated Sputum Sputum Culture - Final Normal Respiratory Jenna - *Routine Respiratory Exam Present: CTA bilaterally. Absent: accessory muscle use, rales, rhonchi, wheezes - *Routine Cardiovascular Exam Present: RRR. Absent: murmur, gallop, rubs - *Routine Extremities Exam Absent: edema, calf tenderness - *Routine Neurological Exam Present: alert, oriented X3, moving all extremities Progress Note: A&P (1) Obesity (BMI 30.0-34.9) Status: Acute Current Visit: Yes (2) PNA (pneumonia) Status: Acute Current Visit: Yes (3) Automatic implantable cardioverter-defibrillator in situ Status: Chronic Current Visit: No (4) COPD (chronic obstructive pulmonary disease) Status: Acute Current Visit: No (5) CAD (coronary artery disease) Status: Chronic Current Visit: No (6) Abnormal thallium stress test Status: Acute Current Visit: Yes Assessment and Plan for All Diagnoses:: With the patient's history of coronary artery disease status post bypass and stenting, COPD and continued shortness of breath despite biventricular AICD working appropriately with stable impedance by CorVue, would recommend proceeding with right and left heart catheterization today to reevaluate the patient's coronary artery disease and pulmonary status. Risks, benefits and procedure discussed with patient and he agrees to proceed.
[2018-07-18 16:02] LABS: Anion Gap 13.3 mEq/L (5-15); Calcium 8.3 mg/dL (8.5-10.1); Potassium 3.3 mmoL/L (3.5-5.1)
--- NOTE | 2018-07-19 07:30 | Progress Note ---
Subjective Date: 07/19/18 Time: 07:27 Principal diagnosis: SOA Interval history: 78 yo WM sitting at bedside eating breakfast in NAD. Relates he is breathing better after IV lasix. No chest pains. BP improved with increased coreg dosing. Labs pending this AM. Exam Vital signs and Labs for Last 24 Hours: Temp Pulse Resp BP Pulse Ox 98.1 F 64 22 126/90 96 07/19/18 04:00 07/19/18 06:10 07/19/18 04:00 07/19/18 04:00 07/19/18 06:10 Laboratory Results - last 24 hr 07/18/18 12:45: ABG O2 Sat (Measured) 80 L, POC VBG O2 Sat (Stewart) 80 07/18/18 15:48: Sodium 142, Potassium 3.3 L, Chloride 104, Carbon Dioxide 28, Anion Gap 13.3, BUN 18, Creatinine 0.88, Estimated Creat Clear 99, Estimated GFR 84, Est GFR ( Amer) 102, Glucose 139 H, Calcium 8.3 L, Magnesium 1.9 I & O for Last 24 hours: Intake & Output 07/16/18 07/17/18 07/18/18 07/19/18 11:59 11:59 11:59 11:59 Intake Total 1696 / 1696 3427 / 3427 3585 / 3585 830 / 830 Output Total 1300 / 1300 1775 / 1775 3750 / 3750 2800 / 2800 Balance 396 / 396 1652 / 1652 -165 / -165 -1969 / -1969 Weight 252 lb 3 oz 249 lb 8 oz 250 lb 7 oz 245 lb 4 oz - *Routine HEENT Exam Head: Present: normocephalic Eye: Present: EOMI, PERRL ENT: Present: mucous membranes moist - *Routine Respiratory Exam Present: CTA bilaterally. Absent: accessory muscle use, rales, rhonchi, wheezes - *Routine Cardiovascular Exam Present: RRR. Absent: murmur, gallop, rubs - *Routine Neurological Exam Present: alert, oriented X3, moving all extremities Progress Note: A&P (1) Obesity (BMI 30.0-34.9) Status: Acute Current Visit: Yes (2) PNA (pneumonia) Status: Acute Current Visit: Yes (3) Automatic implantable cardioverter-defibrillator in situ Status: Chronic Current Visit: No (4) COPD (chronic obstructive pulmonary disease) Status: Acute Current Visit: No (5) CAD (coronary artery disease) Status: Chronic Current Visit: No (6) Pulmonary hypertension Status: Acute Current Visit: Yes (7) Cardiomyopathy Status: Chronic Current Visit: No Assessment and Plan for All Diagnoses:: OK for discharge from cardiology [facility]. Continue increased coreg 18.75 mg BID continue lasix 40 mg daily with potassium 20 meq daily for 5 days then PRN weight gain, SOA or edema continue ASA 81 mg daily, lipitor 40 mg daily and hyzaar 100-12.5 mg daily BMP one week follow up in 1-2 wks
[2018-07-19 08:18] LABS: Basophils % 0.1 % (0.1-2.0); Eosinophils # 0.1 K/mm3 (0.0-0.4); Eosinophils % 0.5 % (0.1-12.0); Hematocrit 39.7 % (42.0-52.0); Hemoglobin 13.2 g/dL (14.1-18.0); Lymphocytes # 1.3 K/mm3 (0.7-4.5); Lymphocytes % 11.5 % (10-50); Mean Corpuscular HGB Conc 33.3 g/dL (31.8-35.4); Mean Corpuscular Hemoglobin 31.7 pg (27.0-31.2); Mean Corpuscular Volume 95.1 fl (80-94); Mean Platelet Volume 7.6 fl (7.4-10.4); Monocytes # 0.7 K/mm3 (0.1-1.0); Monocytes % 5.7 % (1.7-9.3); Neutrophils # 9.4 K/mm3 (1.8-7.8); Neutrophils % 82.3 % (37.0-80.0); Platelet Count 280 K/mm3 (142-424); Red Blood Count 4.18 M/mm3 (4.60-6.20); Red Cell Distribution Width 13.4 % (11.5-17.5); White Blood Count 11.4 K/mm3 (4.8-10.8)
[2018-07-19 08:32] LABS: Albumin Level 3.6 gm/dL (3.4-5.0); Albumin/Globulin Ratio 1.2 (1.1-1.8); Bilirubin,Total 0.6 mg/dL (0.2-1.0); Calcium 8.3 mg/dL (8.5-10.1); Globulin 3.1 gm/dl (1.3-3.2); Total Protein,Serum 6.7 gm/dL (6.4-8.2)
--- NOTE | 2018-07-19 09:04 | Discharge Summary ---
General - General Admission date:: 07/14/18 Discharge date: 07/19/18 HPI HPI: this wm presented to pcp office with persistant resp sx despite op abx and steroids - has past hx of tob use and element of copd - he was sent to [facility] to continued sxhas been on antibiotics for over one months, reports having been recently diagnosed with pneumonia. Pt was seen by Perlita Gamboa earlier today and advised to come to the ER.pt with abn cxr and was admitted for eval Hospital Course Hospital Course: ct chest: IMPRESSION: 1. Centrilobular emphysema/COPD with chronic changes. 2. No evidence of consolidation or mass in the right lower lobe. The radiographic abnormality may be due to overlying summation density or an area of consolidation or atelectasis which has cleared. 3. Mild prominence of the ascending aorta 4.4 cm stress test: Conclusion: 1. The EKG portion of the Lexiscan Myoview is nondiagnostic. 2. Scintigraphic evidence of myocardial scarring involving the anterolateral wall without significant kaylin-infarct ischemia, computer derived ejection fraction 37% segmental wall motion abnormality described above, right ventricle is normal size and contractility. 3. Abnormal Lexiscan Myoview study. PROCEDURES: Left heart catheterization Selective coronary angiogram Left ventriculogram Left internal mammary angiography Selective engagement of the saphenous vein graft to the first obtuse marginal artery Selective engagement of the saphenous vein graft to the third obtuse marginal artery Right heart catheterization INDICATION FOR TEST: 1. Systolic congestive heart failure 2. History of coronary bypass surgery 3. Pulmonary hypertension 4. Decompensated congestive heart failure with pulmonary edema 5. Known coronary artery disease Patient will be discharged home today and follow-up with cardiology cardiology recommended medication changes. Objective Vital signs: Temp Pulse Resp BP Pulse Ox 98.4 F 64 18 114/64 96 07/19/18 08:00 07/19/18 08:00 07/19/18 08:00 07/19/18 08:00 07/19/18 08:00 no acute distress - *Routine HEENT Exam Head: Present: normocephalic Eye: Present: PERRL ENT: Present: mucous membranes moist - *Routine Respiratory Exam Present: CTA bilaterally - *Routine Cardiovascular Exam Present: RRR Comments: pacemaker - *Routine Abdominal Exam Present: soft, normoactive bowel sounds. Absent: tenderness - *Routine Extremities Exam Present: full ROM - *Routine Skin Exam Present: intact - *Routine Neurological Exam Present: alert, oriented X3 - Routine Psychiatric Exam Present: normal affect Results Labs on day of discharge: Labs from last 24 hours 07/19/18 07/19/18 07/18/18 07:59 07:59 15:48 WBC 11.4 H RBC 4.18 L Hgb 13.2 L Hct 39.7 L MCV 95.1 H MCH 31.7 H MCHC 33.3 RDW 13.4 Plt Count 280 MPV 7.6 Neut % (Auto) 82.3 H Lymph % (Auto) 11.5 [place] % (Auto) 5.7 Eos % (Auto) 0.5 Baso % (Auto) 0.1 Neut # (Auto) 9.4 H Lymph # (Auto) 1.3 [place] # (Auto) 0.7 Eos # (Auto) 0.1 Baso # (Auto) 0.0 ABG O2 Sat (Measured) POC VBG O2 Sat (Stewart) Sodium 143 142 Potassium 3.0 L 3.3 L Chloride 103 104 Carbon Dioxide 33 H 28 Anion Gap 10.0 13.3 BUN 21 H 18 Creatinine 1.06 D 0.88 Estimated Creat Clear 92 99 Estimated GFR 68 84 Est GFR ( Amer) 82 102 Glucose 162 H 139 H Calcium 8.3 L 8.3 L Magnesium 1.9 Total Bilirubin 0.6 AST 7 L ALT 20 Alkaline Phosphatase 55 Total Protein 6.7 Albumin 3.6 Globulin 3.1 Albumin/Globulin Ratio 1.2 07/18/18 12:45 WBC RBC Hgb Hct MCV MCH MCHC RDW Plt Count MPV Neut % (Auto) Lymph % (Auto) [place] % (Auto) Eos % (Auto) Baso % (Auto) Neut # (Auto) Lymph # (Auto) [place] # (Auto) Eos # (Auto) Baso # (Auto) ABG O2 Sat (Measured) 80 L POC VBG O2 Sat (Stewart) 80 Sodium Potassium Chloride Carbon Dioxide Anion Gap BUN Creatinine Estimated Creat Clear Estimated GFR Est GFR ( Amer) Glucose Calcium Magnesium Total Bilirubin AST ALT Alkaline Phosphatase Total Protein Albumin Globulin Albumin/Globulin Ratio Preliminary micro results at discharge 07/14/18 15:45 Blood Culture - Preliminary Blood NO GROWTH AFTER 48 HOURS 07/14/18 15:45 Blood Culture - Preliminary Blood NO GROWTH AFTER 48 HOURS - Additional Comments Adriel will round later all orders per Dr. Morel Discharge patient DS: Diagnosis - Discharge Diagnosis (1) Obesity (BMI 30.0-34.9) Status: Acute (2) PNA (pneumonia) Status: Acute (3) Automatic implantable cardioverter-defibrillator in situ Status: Chronic (4) COPD (chronic obstructive pulmonary disease) Status: Acute (5) CAD (coronary artery disease) Status: Chronic (6) Pulmonary hypertension Status: Acute (7) Cardiomyopathy Status: Chronic Discharge Plan - Patient Discharge Instructions ACTIVITY: Continue current activity DIET: continue same diet Patient Instructions: DI for Pneumonia -- Adult, DI for Cardiac Catheterization, DI for Surgical Site Infection - Follow up Plan Follow up with: Kurtis [place] MD [Staff Physician] - Darya Alejandre APRN [Nurse Practitioner] - 1 week Disposition: Home, Self-Detention Medications: Home Medications Medication Instructions Recorded Confirmed Type cetirizine 10 mg tablet 10 mg PO DAILY PRN #30 tab 05/27/18 07/14/18 Rx aspirin 81 mg chewable tablet 81 mg PO DAILY tab 06/03/18 07/14/18 History Acetaminophen [Acetaminophen 325mg 650 mg PO Q4HP PRN tablet 07/19/18 Rx tab] Atorvastatin Calcium [Lipitor 40mg 40 mg PO QDAY #90 tab 07/19/18 Rx Tablet] Carvedilol [Coreg 12.5mg 18.75 mg PO BID 30 Days tablet 07/19/18 Rx Tablet] Furosemide [Lasix 40mg tablet] 40 mg PO DAILY 30 Days #30 tablet 07/19/18 Rx Losartan/Hydrochlorothiazide 1 tab PO DAILY 30 Days #30 tablet 07/19/18 Rx [Hyzaar 100-12.5 Tablet] Potassium Chloride [Klor-con 20 20 meq PO QDAY 30 Days #30 tab 07/19/18 Rx mEq tablet] Prescriptions/Medication Reconciliation: New Acetaminophen [Acetaminophen 325mg tab] 650 mg PO Q4HP PRN tablet PRN Reason: As Needed For Fever Or Pain Carvedilol [Coreg 12.5mg Tablet] 18.75 mg PO BID 30 Days tablet Furosemide [Lasix 40mg tablet] 40 mg PO DAILY 30 Days #30 tablet Continued cetirizine 10 mg tablet 10 mg PO DAILY PRN #30 tab PRN Reason: allergy symptoms aspirin 81 mg chewable tablet 81 mg PO DAILY tab Atorvastatin Calcium [Lipitor 40mg Tablet] 40 mg PO QDAY #90 tab Losartan/Hydrochlorothiazide [Hyzaar 100-12.5 Tablet] 1 tab PO DAILY 30 Days #30 tablet Potassium Chloride [Klor-con 20 mEq tablet] 20 meq PO QDAY 30 Days #30 tab Discontinued doxazosin 2 mg tablet 2 mg PO QDAY #90 tab carvedilol 12.5 mg tablet 12.5 mg PO BID #180 tab
--- NOTE | 2018-07-19 10:05 | Progress Note ---
Internal Medicine - PN: Subj *Date: 07/18/18 *Time: 08:00 Interval history: doing better - seeing card for possible Exam Vital signs and Labs for Last 24 Hours: Temp Pulse Resp BP Pulse Ox 98.4 F 64 18 114/64 96 07/19/18 08:00 07/19/18 08:00 07/19/18 08:00 07/19/18 08:00 07/19/18 08:00 Laboratory Results - last 24 hr 07/18/18 12:45: ABG O2 Sat (Measured) 80 L, POC VBG O2 Sat (Stewart) 80 07/18/18 15:48: Sodium 142, Potassium 3.3 L, Chloride 104, Carbon Dioxide 28, Anion Gap 13.3, BUN 18, Creatinine 0.88, Estimated Creat Clear 99, Estimated GFR 84, Est GFR ( Amer) 102, Glucose 139 H, Calcium 8.3 L, Magnesium 1.9 07/19/18 07:59: WBC 11.4 H, RBC 4.18 L, Hgb 13.2 L, Hct 39.7 L, MCV 95.1 H, MCH 31.7 H, MCHC 33.3, RDW 13.4, Plt Count 280, MPV 7.6, Neut % (Auto) 82.3 H, Lymph % (Auto) 11.5, [place] % (Auto) 5.7, Eos % (Auto) 0.5, Baso % (Auto) 0.1, Neut # (Auto) 9.4 H, Lymph # (Auto) 1.3, [place] # (Auto) 0.7, Eos # (Auto) 0.1, Baso # (Auto) 0.0 07/19/18 07:59: Sodium 143, Potassium 3.0 L, Chloride 103, Carbon Dioxide 33 H, Anion Gap 10.0, BUN 21 H, Creatinine 1.06 D, Estimated Creat Clear 92, Estimated GFR 68, Est GFR ( Amer) 82, Glucose 162 H, Calcium 8.3 L, Total Bilirubin 0.6, AST 7 L, ALT 20, Alkaline Phosphatase 55, Total Protein 6.7, Albumin 3.6, Globulin 3.1, Albumin/Globulin Ratio 1.2 I & O for Last 24 hours: Intake & Output 07/16/18 07/17/18 07/18/18 07/19/18 11:59 11:59 11:59 11:59 Intake Total 1696 / 1696 3427 / 3427 3585 / 3585 1190 / 1190 Output Total 1300 / 1300 1775 / 1775 3750 / 3750 3300 / 3300 Balance 396 / 396 1652 / 1652 -165 / -165 -2110 / -2110 Weight 252 lb 3 oz 249 lb 8 oz 250 lb 7 oz 245 lb 4 oz - Constitutional no acute distress - *Routine HEENT Exam Head: Present: normocephalic Eye: Present: EOMI, PERRL ENT: Present: mucous membranes dry - *Routine Neck Exam Present: supple - *Routine Respiratory Exam Present: CTA bilaterally - *Routine Cardiovascular Exam Present: RRR, murmur, S4 - *Routine Abdominal Exam Present: soft - *Routine Extremities Exam Present: full ROM - *Routine Skin Exam Present: intact - *Routine Neurological Exam Present: alert, CN II-XII intact - Routine Psychiatric Exam Present: normal affect Assessment and Plan (1) Obesity (BMI 30.0-34.9) Current visit: Yes Status: Acute Category: Medical Code(s): E66.9 - Obesity, unspecified (2) PNA (pneumonia) Current visit: Yes Status: Acute Qualifiers: Pneumonia type: due to unspecified organism Laterality: right Lung location: lower lobe of lung Qualified Code(s): J18.1 - Lobar pneumonia, unspecified organism Category: Medical Code(s): J18.9 - Pneumonia, unspecified organism (3) Automatic implantable cardioverter-defibrillator in situ Current visit: No Status: Chronic Category: Medical Code(s): Z95.810 - Presence of automatic (implantable) cardiac defibrillator (4) COPD (chronic obstructive pulmonary disease) Current visit: No Status: Acute Category: Medical Code(s): J44.9 - Chronic obstructive pulmonary disease, unspecified (5) CAD (coronary artery disease) Current visit: No Status: Chronic Qualifiers: Category: Medical Code(s): I25.10 - Atherosclerotic heart disease of [place] coronary artery without angina pectoris (6) Pulmonary hypertension Current visit: Yes Status: Acute Category: Medical Code(s): I27.20 - Pulmonary hypertension, unspecified (7) Cardiomyopathy Current visit: No Status: Chronic Qualifiers: Cardiomyopathy type: unspecified Qualified Code(s): I42.9 - Cardiomyopathy, unspecified Category: Medical Code(s): I42.9 - Cardiomyopathy, unspecified
== END 2018-07-19 11:05 | disposition home or self-care (01) | DRG 193 ==
LOC: 2ND 14:35 → ER 14:35 → OBSVTOIN 18:05 → 2ND 18:06
PROVIDERS: ADMIT Family Medicine; ATTEND Emergency Medicine
CPT/HCPCS: 36415; 71020; 71046; 71250; 78452; 80048; 80053; 80061; 82810; 83605; 83735; 84484; 85007; 85025; 87040; 87070; 87205; 93017; 93306; 93461; 94640; 94761; 96365; 96375; 99152; 99153; 99284; A9502; C1725; C1769; C1894; J1644; J1956; J2543; J2785; Q9967

== ENCOUNTER → 2018-07-25 13:16 | Outpatient (CLI) | payer MEDICARE, SELFPAY ==
[2018-07-25 15:46] LABS: Anion Gap 10.9 mEq/L (5-15); Blood Urea Nitrogen 15 mg/dL (7-18); Calcium 9.6 mg/dL (8.5-10.1); Carbon Dioxide 34 mmol/L (21.0-32.0); Chloride 103 mmol/L (98-107); Creatinine,Serum 0.87 mg/dL (0.70-1.30); Estimated Glomerular Filt Rate 85 ml/min (>60); GFR (African American) 103 ML/MIN (>60); Glucose 88 mg/dL (74-106); Potassium 3.9 mmoL/L (3.5-5.1); Sodium 144 mmol/L (136-145)
== END ==
PROVIDERS: Visit Provider Physician Assistant
DX: I50.9 Heart failure, unspecified (principal); Z79.899 Other long term (current) drug therapy
CPT/HCPCS: 36415; 80048

== ENCOUNTER → 2018-09-23 12:21 | Outpatient (CLI) | payer MEDICARE, SELFPAY ==
--- NOTE | 2018-09-23 12:22 | CA_ITS ---
PROCEDURE: 2-D M-mode and color Doppler study INDICATIONS FOR THE TEST: Chest pain COPD Heart Murmur+ Tobacco SmokingEX Palpitations Fatigue Syncope Edema Hypertension+Diabetes Mellitus Rheumatic Fever SOB WILKS Obesity Hyperlipidemia+ Family History HD Additional History CAD, CM, AICD, CABG, dizziness, hepatitis PATIENT INFORMATION HEIGHT: 74 WEIGHT: 257 GENDER: Male B/P: 138/81 2-D/M-MODE INTERPRETATION: 2-D MEASUREMENTS OBSERVED VALUES IN CMS Right Ventricular Dimension (RVDd) 3.0 Interventricular Septum (Thickness)(IVsd) 1.3 Left Ventricular Internal Dimensions(LVIDd) 6.8 Left Ventricular Posterior Wall (Thickness)(LVPWd) 1.2 Aortic Root 3.7 Aortic Cusp Separation 2.7 Left Atrial Dimensions (LAD) 4.0 2D 1. Left atrium is moderately enlarged, left ventricle is mildly dilated, there is mild concentric left ventricular hypertrophy, visually estimated ejection fraction 40%, there is marked hypokinesis involving the inferior basal, inferolateral and posterolateral wall. Endocardial surfaces are poorly visualized. 2. The right atrium and right ventricle are moderately enlarged with normal contractility, there is an AICD lead seen in the right ventricle. 3. The aortic valve is thickened and calcified without restriction the leaflet mobility. 4. The mitral and tricuspid valve leaflets are minimally thickened. 5. The pulmonic valve is poorly visualized. 6. No significant pericardial effusion noted. DOPPLER INTERROGATION: Doppler interrogation of the aortic, mitral and tricuspid valvular presence of moderate mitral and mild tricuspid regurgitation, tricuspid regurgitation jet velocity is inadequate for calculation of the right ventricular systolic pressure, grade 1 diastolic dysfunction seen with tissue Doppler evidence of raised left atrial pressure. Inferior vena cava is normal size with normal respiratory collapse. CONCLUSION: 1. Biatrial enlargement, mildly dilated left ventricle, mild concentric left ventricular hypertrophy seen, visually estimated ejection fraction 40% with multiple segmental wall motion and vomiting described above. 2. Moderately enlarged right ventricle with normal contractility. 3. Moderate mitral and mild tricuspid regurgitation 4. Grade 1 diastolic dysfunction seen with tissue Doppler evidence of raised left atrial pressure, inferior vena cava is normal size with normal inspiratory collapse. 5. No significant pericardial effusion
== END ==
PROVIDERS: PCP Emergency Medicine; Visit Provider Internal Medicine
DX: I27.20 Pulmonary hypertension, unspecified (principal)
CPT/HCPCS: 93306

== ENCOUNTER → 2018-11-21 13:23 | Outpatient (CLI) | payer MEDICARE, SELFPAY ==
[2018-11-21 14:33] LABS: Basophils % 0.5 % (0.1-2.0); Eosinophils # 0.2 K/mm3 (0.0-0.4); Eosinophils % 2.9 % (0.1-12.0); Hemoglobin 13.9 g/dL (14.1-18.0); Lymphocytes # 1.5 K/mm3 (0.7-4.5); Lymphocytes % 20.9 % (10-50); Mean Corpuscular HGB Conc 32.2 g/dL (31.8-35.4); Mean Corpuscular Hemoglobin 31.6 pg (27.0-31.2); Mean Corpuscular Volume 98.1 fl (80-94); Monocytes # 0.6 K/mm3 (0.1-1.0); Monocytes % 8.7 % (1.7-9.3); Neutrophils # 4.9 K/mm3 (1.8-7.8); Neutrophils % 66.9 % (37.0-80.0); Platelet Count 317 K/mm3 (142-424); Red Blood Count 4.39 M/mm3 (4.60-6.20); Red Cell Distribution Width 13.7 % (11.5-17.5); White Blood Count 7.3 K/mm3 (4.8-10.8)
[2018-11-21 18:13] LABS: Alanine Aminotransferase 20 U/L (12-78); Albumin Level 4.1 gm/dL (3.4-5.0); Albumin/Globulin Ratio 1.6 (1.1-1.8); Alkaline Phosphatase 75 U/L (46-116); Anion Gap 13.2 mEq/L (5-15); Aspartate Amino Transferase 12 U/L (15-37); Bilirubin,Total 0.7 mg/dL (0.2-1.0); Blood Urea Nitrogen 13 mg/dL (7-18); Calcium 9.1 mg/dL (8.5-10.1); Carbon Dioxide 31 mmol/L (21.0-32.0); Chloride 104 mmol/L (98-107); Cholesterol 137 mg/dL (140-200); Creatinine,Serum 0.81 mg/dL (0.70-1.30); Estimated Glomerular Filt Rate 92 ml/min (>60); Free T4 (Free Thyroxine) 0.97 ng/dl (0.76-1.46); GFR (African American) 112 ML/MIN (>60); Globulin 2.5 gm/dl (1.3-3.2); Glucose 103 mg/dL (74-106); HDL Cholesterol 46 mg/dL (27-67); LDL Cholesterol 70 mg/dL (0-130); Potassium 4.2 mmoL/L (3.5-5.1); Sodium 144 mmol/L (136-145); Thyroid Stimulating Hormone 1.83 uIU/ml (0.358-3.740); Total Protein,Serum 6.6 gm/dL (6.4-8.2); Triglycerides 104 mg/dL (30-200); VLDL Cholesterol 21 mg/dL (0-40)
[2018-11-22 06:56] LABS: PSA, Free <0.01 ng/mL; Prostate Specific Ag <0.1 ng/mL (0.0-4.0)
[2018-11-24 06:06] LABS: Folate 13.5 ng/mL (>3.0); Vitamin B12 405 pg/mL (232-1245)
== END ==
PROVIDERS: Visit Provider Emergency Medicine
DX: I42.9 Cardiomyopathy, unspecified (principal); I49.9 Cardiac arrhythmia, unspecified; I10 Essential (primary) hypertension; E66.9 Obesity, unspecified; D64.9 Anemia, unspecified
CPT/HCPCS: 80053; 80061; 82607; 82746; 84153; 84154; 84439; 84443; 85025

== ENCOUNTER 2019-10-15 17:15 | Inpatient (IN) | payer MEDICARE, SELFPAY ==
[2019-10-15] VITALS (15 sets, daily range): BP systolic 77–135; BP diastolic 45–76; PULSE 79–94; RESP 16–22; TEMP 37.6–38.6; O2SAT 84–98; BMI 27.5; BMI 28.4
--- NOTE | 2019-10-15 17:18 | HMH.EDGENADL ---
ED Disposition Clinical Impression: Neutropenic fever, Cancer, Septic shock UTI (urinary tract infection) Qualifiers: Urinary tract infection type: acute pyelonephritis Qualified Code(s): N10 - Acute pyelonephritis Disposition: Admitted as Observation Condition on Discharge: Fair - Critical Care Critical Care Time: Yes Attestation: On , the high probability of a clinically significant, sudden or life threatening deterioration of the following system(s) required my full and direct attention, intervention and personal management. The time I documented below is in addition to time spent performing reported procedures but includes the following listed in this critical care notation. Total Critical Care Time: 45 Vital system(s) involved:: Shock (Septic) My critical care processes included: Assessment & monitoring of V/S, Initial and Re-exams, Data Review/Interpretation, Coordinating Care, Medication Orders and management, Documentation Medical Decision Making - Isaías Inquiry Pt receiving controlled substance: No Vital Signs: 10/15/19 17:15 10/15/19 17:30 10/15/19 18:00 Temperature 101.4 F H Temperature Source Oral Pulse Rate Pulse Rate [Right] 84 87 80 Respiratory Rate 22 16 16 Blood Pressure Blood Pressure [Right Arm] 108/73 L 128/76 116/73 Blood Pressure Mean [Right Arm] 84 93 87 Blood Pressure Source [Right Arm] Automatic Cuff Automatic Cuff Blood Pressure Position [Right Arm] Sitting Sitting 02 Sat by Pulse Oximetry 94 L 84 L 92 L Oxygen Delivery Method Room Air 10/15/19 18:15 10/15/19 18:30 10/15/19 19:00 Temperature Temperature Source Pulse Rate Pulse Rate [Right] 89 87 84 Respiratory Rate 22 21 16 Blood Pressure Blood Pressure [Right Arm] 116/73 100/64 L 77/45 L Blood Pressure Mean [Right Arm] 87 76 55 Blood Pressure Source [Right Arm] Blood Pressure Position [Right Arm] Sitting 02 Sat by Pulse Oximetry 96 98 96 Oxygen Delivery Method Room Air Room Air 10/15/19 19:18 10/15/19 19:27 10/15/19 19:29 Temperature 100.3 F H Temperature Source Oral Pulse Rate Pulse Rate [Right] 92 H 80 89 Respiratory Rate 16 17 18 Blood Pressure Blood Pressure [Right Arm] 83/45 L 89/52 L 135/71 Blood Pressure Mean [Right Arm] 57 64 92 Blood Pressure Source [Right Arm] Blood Pressure Position [Right Arm] Sitting 02 Sat by Pulse Oximetry 96 97 95 Oxygen Delivery Method Room Air Room Air 10/15/19 19:30 10/15/19 19:34 10/15/19 19:35 Temperature 100.3 F H Temperature Source Pulse Rate 81 Pulse Rate [Right] 94 H 79 Respiratory Rate 18 17 20 Blood Pressure 113/60 Blood Pressure [Right Arm] 135/71 119/68 Blood Pressure Mean [Right Arm] 92 85 Blood Pressure Source [Right Arm] Automatic Cuff Automatic Cuff Blood Pressure Position [Right Arm] Supine Supine 02 Sat by Pulse Oximetry 95 98 Oxygen Delivery Method Room Air Room Air Room Air - Lab Data Lab Results 10/15/19 17:10: WBC 0.5 L*, RBC 2.89 L, Hgb 10.2 L, Hct 29.4 L, MCV 101.9 H, MCH 35.4 H, MCHC 34.7, RDW 18.8 H, Plt Count 71 L, MPV 8.1, Neut % (Auto) 15.3 L, Lymph % (Auto) 66.3 H, [place] % (Auto) 13.8 H, Eos % (Auto) 4.3, Baso % (Auto) 0.5, Neut # (Auto) 0.1 L*, Lymph # (Auto) 0.4 L, [place] # (Auto) 0.1, Eos # (Auto) 0.0, Baso # (Auto) 0.0, Total Counted 100, Neutrophils % (Manual) 16 L, Lymphocytes % (Manual) 71 H, Monocytes % (Manual) 12 H, Eosinophils % (Manual) 1, Platelet Estimate Marked decrease, Anisocytosis 1+, Macrocytosis 1+ 10/15/19 17:10: Sodium 134 L, Potassium 3.4 L, Chloride 94 L, Carbon Dioxide 36 H, Anion Gap 7.4, BUN 18, Creatinine 0.60 L, Estimated Creat Clear 86, Estimated GFR 130, Est GFR ( Amer) 158, Glucose 122 H, Calcium 8.6, Total Bilirubin 0.6, AST 20, ALT 19, Alkaline Phosphatase 50, Troponin I 0.04 H, Total Protein 5.7 L, Albumin 3.4 L, Globulin 2.3, Albumin/Globulin Ratio 1.5 10/15/19 17:10: NT-Pro-B Natriuret Pep 1550 H 10/15/19 17:10: SARS-CoV-2 IgG Ab (Rapid) Negat
--- NOTE | 2019-10-15 17:20 | ECG_ITS ---
APPROVED REPORT Exam: Resting ECG HR:85 bpm ECG Measurements Heart Rate 85 AXES TX 150 P 87 QRSd 178 QRS 226 QT 436 T 49 QTc 518 <Conclusion> Pacemaker rhythm Electronically signed by : Olaf Morfin, 10/16/2019 12:27:49
--- NOTE | 2019-10-15 17:20 | XR_ITS ---
PROCEDURE: XR CHEST PORTABLE CLINICAL HISTORY: soa Shortness of air, current smoker COMPARISON: CXR1VP XR chest portable from 06/25/2017 CXR2V XR chest 2V from 05/27/2018 CXR2V XR chest 2V from 07/14/[address] chest wo con from 07/15/2018 FINDINGS: Prior CABG with biventricular and right atrial pacemaker present. The lungs are clear without infiltrates, suspicious nodules, or pleural effusions. No acute bony abnormalities. IMPRESSION: No acute findings. Dictated by: Rajeev Seo MD 10/16/2019 07:39 Electronically signed by Rajeev Seo MD in [place] 10/16/2019 07:39
--- NOTE | 2019-10-15 17:30 | PC.NURSE ---
Gtube assessed at this time, 5ml of residual noted during aspiration, auscultation of gtube noted to be in position.
--- NOTE | 2019-10-15 17:30 | PC.NURSE ---
Pt states DIETARY AID he took 500mg liquid tylenol per gtube
[2019-10-15 17:34] LABS: Basophils % 0.5 % (0.1-2.0); Eosinophils % 4.3 % (0.1-12.0); Hematocrit 29.4 % (42.0-52.0); Hemoglobin 10.2 g/dL (14.1-18.0); Lymphocytes # 0.4 K/mm3 (0.7-4.5); Lymphocytes % 66.3 % (10-50); Mean Corpuscular HGB Conc 34.7 g/dL (31.8-35.4); Mean Corpuscular Hemoglobin 35.4 pg (27.0-31.2); Mean Corpuscular Volume 101.9 fl (80-94); Mean Platelet Volume 8.1 fl (7.4-10.4); Monocytes # 0.1 K/mm3 (0.1-1.0); Monocytes % 13.8 % (1.7-9.3); Neutrophils # 0.1 K/mm3 (1.8-7.8); Neutrophils % 15.3 % (37.0-80.0); Platelet Count 71 K/mm3 (142-424); Red Blood Count 2.89 M/mm3 (4.60-6.20); Red Cell Distribution Width 18.8 % (11.5-17.5)
[2019-10-15 17:40] LABS: MANUAL DIFFERENTIAL MANUAL DIFFERENTIAL (MANUAL DIFF); White Blood Count 0.5 K/mm3 (4.8-10.8)
[2019-10-15 17:41] LABS: ABG Base Excess 9.8 mmol/L (-2.4-2.3); ABG HCO3 32.6 mmhg (22.0-26.0); ABG Oxygen Saturation 94 % (90-100); ABG PCO2 40.7 mmhg (35.0-45.0); ABG PH 7.52 mmol/L (7.35-7.45); ABG PO2 67.7 mmhg (80-100); ABG TCO2 33.9 mmhg (23-27); Allen's Test Y; Oxygen R/A %
[2019-10-15 17:42] LABS: Chloride 94 mmol/L (98-107); Potassium 3.4 mmoL/L (3.5-5.1); Sodium 134 mmol/L (136-145)
[2019-10-15 17:42] LABS: Source R/R
[2019-10-15 17:44] LABS: Alanine Aminotransferase 19 U/L (12-78); Aspartate Amino Transferase 20 U/L (17-59); Blood Urea Nitrogen 18 mg/dl (9-20); Creatinine Clearance Estimated 86 mL/min (50-200); Estimated Glomerular Filt Rate 130 ml/min (>60); GFR (African American) 158 ML/MIN (>60)
[2019-10-15 17:45] LABS: Albumin Level 3.4 g/dl (3.5-5.0); Albumin/Globulin Ratio 1.5 (1.1-1.8); Alkaline Phosphatase 50 U/L (38-126); Anion Gap 7.4 mEq/L (5-15); Bilirubin,Total 0.6 mg/dl (0.2-1.3); Calcium 8.6 mg/dl (8.4-10.2); Carbon Dioxide 36 mmol/L (22.0-30.0); Globulin 2.3 g/dL (1.3-3.2); Glucose 122 mg/dl (74-100); Total Protein,Serum 5.7 g/dl (6.3-8.2)
--- NOTE | 2019-10-15 17:50 | PC.NURSE ---
notified pt meets criteria for severe sepsis
--- NOTE | 2019-10-15 17:50 | PC.NURSE ---
Liquid tylenol and motrin administered per gtube, 20ml of water used to flush.
[2019-10-15 17:54] LABS: NT Pro Brain Natriuretic Pep. 1550 pg/mL (0-450)
[2019-10-15 17:57] LABS: Strep Scrn Group A (Rapid) Negative (Negative)
[2019-10-15 17:57] LABS: Troponin I 0.04 ng/ml (0.00-0.034)
[2019-10-15 17:59] LABS: Anisocytosis 1+; Eosinophils % 1 % (0-3); Lymphocytes % 71 % (10-50); Macrocytosis 1+; Monocytes % 12 % (2-9); Neutrophils % 16 % (42-76); Platelet Estimate Marked Decrease; Total Cells Counted 100
[2019-10-15 18:00] LABS: Coronavirus 19 IgG Antibody Negative (Negative); Coronavirus 19 IgM Antibody Negative (Negative)
--- NOTE | 2019-10-15 18:14 | PC.NURSE ---
Dr Salazar perdomo
--- NOTE | 2019-10-15 18:18 | PC.NURSE ---
speaking with Dr. Lincoln
[2019-10-15 18:28] LABS: Adenovirus,PCR Not Detected (NotDetected); Bordetella Pertussis Not Detected (NotDetected); Chlamydophila Pneumoniae, PCR Not Detected (NotDetected); Coronavirus 19, PCR Not Detected (NotDetected); Coronavirus 229E Not Detected (NotDetected); Coronavirus NL63 Not Detected (NotDetected); Coronavirus OC43 Not Detected (NotDetected); Coronovirus HKU1,PCR Not Detected (NotDetected); Human Metapneumovirus Not Detected (NotDetected); Influenza A, PCR Not Detected (NotDetected); Influenza AH1, 2009 Not Detected (NotDetected); Influenza AH1, PCR Not Detected (NotDetected); Influenza AH3,PCR Not Detected (NotDetected); Influenza B, PCR Not Detected (NotDetected); Mycoplasma Pneumoniae, PCR Not Detected (NotDected); Parainfluenza 1, PCR Not Detected (NotDetected); Parainfluenza 2, PCR Not Detected (NotDetected); Parainfluenza 3, PCR Not Detected (NotDetected); Parainfluenza 4, PCR Not Detected (NotDetected); Respiratory Syncytial Virus Not Detected (NotDetected); Rhinovirus/Enterovirus Not Detected (NotDetected)
--- NOTE | 2019-10-15 18:31 | PC.NURSE ---
placed call to for pt oncologist.
--- NOTE | 2019-10-15 18:41 | PC.NURSE ---
Dr Menon speaking with Dr Lloyd with oncology.
[2019-10-15 18:42] LABS: Microscopic, Urine URINE MICROSCOPIC (MICROSCOPIC)
[2019-10-15 18:48] LABS: Appearance,Urine SL CLOUDY (Clear); Bilirubin,Urine Negative (Negative); Blood, Urine 1+ (Negative); Color,Urine YELLOW (Yellow); Glucose,Urine (UA) Negative (Negative); Ketones,Urine Negative (Negative); Leukocyte Esterase,Urine 2+ (Negative); Nitrate,Urine POSITIVE (Negative); Protein,Urine 1+ (Negative)
[2019-10-15 18:49] LABS: Bacteria,Urine 1+ /lpf; WBC,Urine 20-50 #/hpf (0-3)
--- NOTE | 2019-10-15 19:13 | PC.NURSE ---
MARIANO Scott notified MD of low b/p and pt meets criteria septic shock. MD wishes to initiate sepsis bolus at this time.
--- NOTE | 2019-10-15 19:54 | PC.NURSE ---
patient up to floor via wheelchair.
[2019-10-16] VITALS (10 sets, daily range): BP systolic 101–131; BP diastolic 54–71; PULSE 70–92; RESP 20–36; TEMP 37.3–37.7; O2SAT 90–99; BMI 28.2
--- NOTE | 2019-10-16 02:18 | PC.NURSE ---
0150 pt rang out stating he was SOA. Upon assessment pt was sitting on side of bed, increased WOB noted. RR of 36/min. O2 sat on RA was 97. Lung sounds auscultated and expiratory rhonchi and inspiratory wheezing noted throughout. Pt continues to have copious amount of secretions (present upon admission). 2LNC applied and pt educated on use of IS. oyster bed worker MD notified and gave new orders for PRN DuoNebs. Pt tolerating well and states he is feeling better . Will continue to monitor.
--- NOTE | 2019-10-16 06:10 | PC.NURSE ---
Pt has rested well since SOA from earlier in shift. 2LNC remains in place for pt comfort. No other complaints reported to staff. Pt voiding w/o difficulty. Neutropenic precautions in place. Will continue to monitor.
[2019-10-16 06:21] LABS: Eosinophils % 2.2 % (0.1-12.0); Lymphocytes # 0.2 K/mm3 (0.7-4.5); Lymphocytes % 54.4 % (10-50); Mean Corpuscular HGB Conc 34.2 g/dL (31.8-35.4); Mean Corpuscular Hemoglobin 35.4 pg (27.0-31.2); Mean Corpuscular Volume 103.5 fl (80-94); Mean Platelet Volume 8.4 fl (7.4-10.4); Monocytes # 0.1 K/mm3 (0.1-1.0); Monocytes % 24.3 % (1.7-9.3); Neutrophils # 0.1 K/mm3 (1.8-7.8); Neutrophils % 18.2 % (37.0-80.0); Red Blood Count 2.43 M/mm3 (4.60-6.20)
[2019-10-16 06:30] LABS: Hemoglobin 8.6 g/dL (14.1-18.0); White Blood Count 0.4 K/mm3 (4.8-10.8)
[2019-10-16 06:31] LABS: Hematocrit 25.1 % (42.0-52.0); Platelet Count 47 K/mm3 (142-424)
[2019-10-16 06:32] LABS: MANUAL DIFFERENTIAL MANUAL DIFFERENTIAL (MANUAL DIFF)
[2019-10-16 06:44] LABS: Anisocytosis 2+; Eosinophils % 4 % (0-3); Lymphocytes % 82 % (10-50); Monocytes % 4 % (2-9); Neutrophils % 8 % (42-76); Ovalocytes 1+; Platelet Estimate Marked Decrease; Poikilocytosis 1+; Rouleaux 1+; Total Cells Counted 50
--- NOTE | 2019-10-16 07:05 | HMH.PHAVTE ---
[facility] Pharmacy VTE Monitoring - Patient Demographics Admission date: 10/15/19 Report Date: 10/16/19 Time: 07:05 Allergies/Adverse Reactions: Patient Allergies No Known Allergies Allergy (Verified 05/03/19 08:56) Height: 1.91 m Weight: 103.164 kg Patient Problems: Current Active Problems Neutropenic fever (Acute) Cancer (Acute) Septic shock (Acute) UTI (urinary tract infection) (Acute) - VTE Risk Labs: VTE Related Lab Results Hgb 8.6 g/dL (14.1-18.0) L D 10/16/19 05:50 Hct 25.1 % (42.0-52.0) L 10/16/19 05:50 Plt Count 47 K/mm3 (142-424) L* D 10/16/19 05:50 BUN 18 mg/dl (9-20) 10/15/19 17:10 Creatinine 0.60 mg/dl (0.66-1.25) L 10/15/19 17:10 Estimated Creat Clear 86 mL/min (50-200) 10/15/19 17:10 VTE Score: 6 Clinical Trial Participant: No - Prophylaxis VTE Prophylaxis Ordered?: Yes Types of VTE Prophylaxis: TEDS Knee High Location of Applied Device: Refused
--- NOTE | 2019-10-16 07:28 | HMH.PHAINT ---
MEDICATION RECONCILIATION COMPLETED BY USING EXTERNAL FILL HISTORY.
--- NOTE | 2019-10-16 07:31 | DIET.NUTRFU ---
Addendum entered by Angelita Bolaños 10/16/19 12:32: Mechanical soft diet (with Neutropenic precautions) added in addition to Tube Feeds for pleasure feeding, at request of pt and presales engineer. Pt and presales engineer have been educated on enteral nutrition meeting all pt's needs. Will monitor intakes and adjust TF regimen as indicated. Original Note: I have just confirmed pt's Tube Feeding regimen with pt's significant other/presales engineer, he does Two [place] at home. Recommend initiating pt's same home TF regimen which meets increased protein/energy needs. Will continue to monitor and adjust as needed. Pt's presales engineer also said pt is still able to drink and eat some soft foods per os. Will assess pt and determine if pleasure foods are indicated. Upon MD's order recommend initiation of bolus tube feedings Two Allen HN q 6 hours with 30ml water flushes before/after feedings and meds. This regimen provides 1896 kcal, 80g protein, 207g Carbohydrate, 86g fat, and 664ml free water. Additional fluid needs are met through IV and water flushes. Will monitor and adjust as needed.
--- NOTE | 2019-10-16 08:39 | HMH.HP ---
*Admission Date: 10/15/19 *Chief complaint: soa *History of present illness: 79-year-old male brought in by ambulance to the ER with complaints of short of breath with a feeling of fluid or congestion in his chest during the night last night. He has a cough with copious amount of sputum. When arrived to the ER patient states he developed a fever to 101 degrees today. He denies chest pain. No known exposures, including COVID-19. No vomiting or diarrhea.Hx cancer in his throat and his lung. 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 He says he is being treated through [facility] in [place]. He had surgery on his throat 4 months ago and has had throat pain ever since then. He has a feeding tube feeding 4 times day. He takes oral liquids, but does not eat solid foods, patient states he obtains all of his nutrition through the feeding tube. Patient states he is currently undergoing radiation therapy finished chemotherapy 3 weeks ago. Patient states he does have a history of smoking does not use oxygen at home. Patient states he got his chemotherapy at [facility], but is getting his radiation therapy in [place] with 3 radiation therapy appointment scheduled this coming week. Patient admitted placed on neutropenic precautions. [facility] History I have reviewed the patient's past medical history: Yes Medical History: Reports:: Cancer (Throat,neck,prostate,lung), Cardiomyopathy, Coronary Artery Disease, Heart Murmur, Hepatitis, Hyperlipidemia, Hypertension, Internal Pacemaker, Myocardial Infarction Denies:: Diabetes Mellitus Type 1, Diabetes Mellitus Type 2, MRSA, Seizures *Have you ever received a pneumonia vaccine?: Yes *Have you received a flu vaccine this season?: No Other Medical History: Reports: Chemotherapy (3 weeks ago), Radiation Therapy (thursday 10/12). Denies: Blood Transfusion Reaction Other Surgeries: Yes: CABG, Cancer Surgery, Cardiac Catheterization, Cardiac Surgery, Colonoscopy, Coronary Stent, Pacemaker, Other Amputation: No Fractures: No - *Social History Last grade of school completed: 7th or 8th Smoking Status: Current every day smoker Tobacco Type: cigarettes # Packs/Day (cigarettes): 1 #Yrs smoked (if former smoker): 50 Alcohol Intake: never Alcohol Intake Frequency:: holidays/special occasions only Substance Use Type: denies use *Occupational Status:: retired Housing: house Household Members: none *Travel in the last 8 weeks: None Family Hx:: No significant family history Review of Systems - Review of Systems Review of systems:: pertinent systems reviewed and negative unless documented below - Constitutional Reports chills, Reports fever(s) - Eyes Denies blurry vision - ENT Reports pain with swallowing, Reports sore throat, Denies bleeding gums - *Cardiovascular Reports shortness of breath, Denies chest pain with activity - *Respiratory Reports change in phlegm color, Reports cough, Reports shortness of breath, Reports shortness of breath with activity, Reports excessive phlegm production - *Gastrointestinal Denies abdominal pain, Denies nausea, Denies vomiting - *Genitourinary Denies urinary frequency - *Musculoskeletal Reports muscle weakness, Denies joint pain - Integumentary/Breasts Denies rash - *Neurologic Denies abnormal hearing, Denies dizziness - Psychiatric Denies lack of enjoyment, Denies panic attacks - Endocrine Denies excessive sweating - Hematologic/Lymphatic Denies easy bruising - Allergic/Immunologic Denies itchy eyes Meds Home Medications Medication Instructions Recorded Confirmed Type aspirin 81 mg chewable tablet 81 mg PO DAILY tab 06/03/18 10/15/19 History atorvastatin 40 mg tablet 40 mg PO QDAY #90 tab 09/27/19 10/15/19 Rx Furosemide [Furosemide 40MG tAB] 40 mg PO DAILY 10/15/19 10/15/19 History Losartan Potassium [Cozaar 100mg 100 mg PO DAILY 10/15/19 10/15/19
--- NOTE | 2019-10-16 09:16 | XR_ITS ---
PROCEDURE: XR CHEST 2V CLINICAL HISTORY: soa COMPARISON: CXR2V XR chest 2V from 05/27/2018 CXR2V XR chest 2V from 07/14/[address] chest wo con from 07/15/2018 XR CHEST PORTABLE from 10/15/2019 FINDINGS: Bipolar pacemaker is present from left subclavian approach. 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 Normal heart size. The lungs are clear without infiltrates, suspicious nodules, or pleural effusions. Degenerative changes are present in the thoracic spine. There is a calcified granuloma in the right lung base posteriorly IMPRESSION: Prior CABG with bipolar pacemaker. No acute finding Dictated by: Rajeev Seo MD 10/16/2019 15:30 Electronically signed by Rajeev Seo MD in [place] 10/16/2019 15:30
--- NOTE | 2019-10-16 19:20 | PC.NURSE ---
report given to candice
--- NOTE | 2019-10-16 19:30 | PC.NURSE ---
RESIDUAL CHECKED Q4, 0ML OF RESIDUAL. NEUTROPENIC PRECAUTIONS IN PLACE. NO COMPLAINTS VOICED. SAFETY MEASURES IN PLACE.
--- NOTE | 2019-10-16 22:05 | PC.NURSE ---
RESIDUAL CHECKED, 0 ML OBTAINED. 8 OZ TUBE FEEDING INSTILLED AT THIS TIME WITH 80 ML OF WATER FOR IRRIGATION. PT TOLERATED WELL. NO COMPLAINTS AT THIS TIME.
[2019-10-17] VITALS (16 sets, daily range): BP systolic 116–132; BP diastolic 45–79; PULSE 50–81; RESP 17–20; TEMP 36.9–37.4; O2SAT 92–98; BMI 300.3; BMI 28.0
--- NOTE | 2019-10-17 02:26 | PC.NURSE ---
URINE NOTED CLEAR AND YELLOW PER URINAL.
--- NOTE | 2019-10-17 02:55 | PC.NURSE ---
RESIDUAL CHECKED, 0 ML OBTAINED.
--- NOTE | 2019-10-17 04:00 | PC.NURSE ---
8 OZ TUBE FEEDING INSTILLED AT THIS TIME WITH 80 ML OF WATER FOR IRRIGATION. PT TOLERATED WELL. NO COMPLAINTS AT THIS TIME.
--- NOTE | 2019-10-17 04:05 | PC.NURSE ---
PT NOTED ON RA AT THIS TIME, O2 SATS 95% ON RA. PT DENIES SOA. O2 ON STANDBY IF NEEDED. WILL CONTINUE TO MONITOR.
[2019-10-17 06:48] LABS: Basophils % 0.5 % (0.1-2.0); Eosinophils % 4.3 % (0.1-12.0); Hematocrit 25.4 % (42.0-52.0); Hemoglobin 8.3 g/dL (14.1-18.0); Lymphocytes # 0.3 K/mm3 (0.7-4.5); Lymphocytes % 40.9 % (10-50); Mean Corpuscular HGB Conc 32.6 g/dL (31.8-35.4); Mean Corpuscular Hemoglobin 34.6 pg (27.0-31.2); Mean Corpuscular Volume 106.4 fl (80-94); Mean Platelet Volume 9.3 fl (7.4-10.4); Monocytes # 0.2 K/mm3 (0.1-1.0); Monocytes % 22.5 % (1.7-9.3); Neutrophils # 0.3 K/mm3 (1.8-7.8); Neutrophils % 31.9 % (37.0-80.0); Platelet Count 67 K/mm3 (142-424); Red Blood Count 2.39 M/mm3 (4.60-6.20); Red Cell Distribution Width 19.3 % (11.5-17.5)
[2019-10-17 06:49] LABS: Chloride 102 mmol/L (98-107); Potassium 3.1 mmoL/L (3.5-5.1); Sodium 137 mmol/L (136-145)
[2019-10-17 06:52] LABS: Anion Gap 7.1 mEq/L (5-15); Blood Urea Nitrogen 14 mg/dl (9-20); Calcium 7.8 mg/dl (8.4-10.2); Carbon Dioxide 31 mmol/L (22.0-30.0); Creatinine Clearance Estimated -32 mL/min (50-200); Estimated Glomerular Filt Rate 161 ml/min (>60); GFR (African American) 195 ML/MIN (>60); Glucose 146 mg/dl (74-100)
[2019-10-17 06:54] LABS: White Blood Count 0.8 K/mm3 (4.8-10.8)
[2019-10-17 06:55] LABS: MANUAL DIFFERENTIAL MANUAL DIFFERENTIAL (MANUAL DIFF)
[2019-10-17 07:58] LABS: Eosinophils % 8 % (0-3); Lymphocytes % 36 % (10-50); Monocytes % 20 % (2-9); Neutrophils % 28 % (42-76); Total Cells Counted 25
[2019-10-17 07:59] LABS: Platelet Estimate Marked Decrease
[2019-10-17 08:00] LABS: RBC Morphology Normal
--- NOTE | 2019-10-17 08:02 | HMH.ACPN2 ---
Internal Medicine - PN: Subj *Date: 10/17/19 *Time: 08:34 Interval history: Has been afebrile during the night. He continues to receive IV cefepime. He has no chest pain, no dyspnea. He is producing very scant amounts of mostly clear sputum. There is no shaking chills. He is status status post coronary bypass, has no chest pain. Blood cultures are pending. Urine cultures are growing out a Pseudomonas that looks pansensitive, fluoroquinolones would cover. Patient is expressing interest to go home. Exam Vital signs and Labs for Last 24 Hours: Temp Pulse Resp BP Pulse Ox 98.6 F 75 20 122/57 L 95 10/17/19 03:49 10/17/19 06:26 10/17/19 03:49 10/17/19 03:49 10/17/19 05:00 Laboratory Results - last 24 hr 10/15/19 18:35: Urine Color Yellow, Urine Appearance Sl cloudy, Urine pH 7.0, Ur Specific Wynot 1.020, Urine Protein 1+, Urine Glucose (UA) Negative, Urine Ketones Negative, Urine Blood 1+, Urine Nitrate Positive, Urine Bilirubin Negative, Urine Urobilinogen 1.0, Ur Leukocyte Esterase 2+ A, Urine RBC 10-20, Urine WBC 20-50, Urine Bacteria 1+ 10/17/19 06:26: WBC 0.8 L* D, RBC 2.39 L, Hgb 8.3 L, Hct 25.4 L, MCV 106.4 H, MCH 34.6 H, MCHC 32.6, RDW 19.3 H, Plt Count 67 L D, MPV 9.3, Neut % (Auto) 31.9 L, Lymph % (Auto) 40.9, Spink % (Auto) 22.5 H, Eos % (Auto) 4.3, Baso % (Auto) 0.5, Neut # (Auto) 0.3 L*, Lymph # (Auto) 0.3 L, Spink # (Auto) 0.2, Eos # (Auto) 0.0, Baso # (Auto) 0.0, Total Counted 25, Neutrophils % (Manual) 28 L, Lymphocytes % (Manual) 36, Monocytes % (Manual) 20 H, Eosinophils % (Manual) 8 H, Blast Cells % 8.0, Platelet Estimate Marked decrease, RBC Morphology Normal 10/17/19 06:26: Sodium 137, Potassium 3.1 L, Chloride 102, Carbon Dioxide 31 H, Anion Gap 7.1, BUN 14, Creatinine 0.50 L, Estimated Creat Clear -32 L, Estimated GFR 161, Est GFR ( Amer) 195 D, Glucose 146 H, Calcium 7.8 L I & O for Last 24 hours: Intake & Output 10/14/19 10/15/19 10/16/19 10/17/19 23:59 23:59 23:59 23:59 Intake Total 3100 / 3100 1694 / 1694 Output Total 700 / 700 1100 / 1100 450 / 450 Balance 2400 / 2400 594 / 594 -450 / -450 Weight 227 lb 7 oz 227 lb 1.218 oz 224 lb 6 oz Microbiology Reports for the Last 24 Hours: Microbiology 10/15/19 17:39 Throat Group A Streptococcus Screen (RIA) - Final Negative for Group A Streptococcus. 10/15/19 18:35 Urine,Clean Catch Urine Culture - Final Pseudomonas aeruginosa - Constitutional no acute distress, chronically ill appearing - *Routine HEENT Exam Head: Present: normocephalic Eye: Present: EOMI ENT: Present: mucous membranes moist - *Routine Neck Exam Present: supple - *Routine Respiratory Exam Present: CTA bilaterally. Absent: accessory muscle use, rhonchi, wheezes, crackles - *Routine Cardiovascular Exam Present: RRR, Normal S1, Normal S2. Absent: murmur - *Routine Abdominal Exam Present: soft. Absent: tenderness, distended, organomegaly - *Routine Extremities Exam Absent: cyanosis, clubbing - *Routine Skin Exam Present: intact, scars. Absent: cyanosis, jaundice - *Routine Neurological Exam Present: alert, oriented X3 - Routine Psychiatric Exam Present: normal affect Assessment and Plan (1) Laryngeal cancer Current visit: Yes Status: Acute Category: Medical Code(s): C32.9 - Malignant neoplasm of larynx, unspecified (2) Small cell lung cancer in adult Current visit: Yes Status: Acute Category: Medical Code(s): C34.90 - Malignant neoplasm of unspecified part of unspecified bronchus or lung (3) Cancer Current visit: Yes Status: Acute Category: Medical Code(s): C80.1 - Malignant (primary) neoplasm, unspecified (4) Neutropenic fever Current visit: Yes Status: Acute Category: Medical Code(s): D70.9 - Neutropenia, unspecified; R50.81 - Fever presenting with conditions classified elsewhere (5) Medication induced coagulopathy Current
--- NOTE | 2019-10-17 08:31 | PC.NURSE ---
A&O X4. PT RESTED WELL THIS SHIFT WITH EYES CLOSED. NO C/O PAIN. NO EDEMA NOTED. 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 TOLERATED RA WELL THIS AM. THIS RN WAS GIVEN IN REPORT AT BEGINNING OF SHIFT THAT PT REQUESTED 1 LNC FOR COMFORT WEAR. PT AGREED TO D/C O2 WITH SATS RANGING 95% ON RA. VERBALIZED HE WILL RING OUT IF HE FEELS SOA. G-TUBE IN PLACE, FEEDINGS INITIATED Q6H. 0 RESIDUALS. TOLERATED TUBE FEEDINGS WELL. ADMINISTERED ROBINUL FOR SECRETIONS THIS AM. PT NOTED WITH CONTINUOUS LOOSE RATTLE COUGH WITH THICK WHITE SPUTUM. UPON REASSESSMENT PT COUGHING NOTED DECREASED, RESTING WELL WITH NO FURTHER COMPLAINTS. VSS. REFUSED TEDS. REMAINS SAFE. AMB INDEPENDENTLY. CALL LIGHT WITHIN REACH. WILL CONTINUE TO MONITOR.
--- NOTE | 2019-10-17 18:50 | PC.NURSE ---
Pt has been pleasant and cooperative this shift. A&O X4. No complaints of pain or SOA. Pt ambulates independently.Telemetry reveals a paced rhythm. Lung sounds reveal expiratory rhonchi. No BM this shift. Tube feedings Q6H via G-tube. Residuals Q4H. 20 G peripheral IV in the LT wrist DC'd due to leaking. 18 G peripheral IV in the RT AC patent and SL. 16 G peripheral IV in the LT AC patent and infusing NS @ 100 ML/HR. VSS. Call light within reach. Will continue to monitor.
--- NOTE | 2019-10-17 21:13 | PC.NURSE ---
RESIDUAL CHECKED AT 1945, 0ML OBTAINED
--- NOTE | 2019-10-17 21:31 | PC.NURSE ---
8OZ OF TUBE FEDDING ADMINISTERED, 80ML OF WATER USED FOR IRRIGATION. PT TOLERATED WITHOUT PROBLEM AND ASSISTED WITH ADMINISTRATION. WILL CONTINUE TO MONITOR
--- NOTE | 2019-10-17 23:28 | PC.NURSE ---
RESIDUAL CHECK, 0ML OBTAINED.
--- NOTE | 2019-10-18 02:11 | PC.NURSE ---
s/w Dr. Aguilar @ 22:38 on 10/17/19, ok to d/c
[2019-10-18 04:00] VITALS: BP 136/64; PULSE 71; RESP 17; TEMP 36.9; O2SAT 95
--- NOTE | 2019-10-18 04:08 | PC.NURSE ---
GASTRIC RESIDUAL: 5 ML FLUSHED WITH 30 ML WATER PRIOR TO FEED 8OZ 2 MIRNA ADMINISTERED BY GRAVITY WITH 70 ML OF WARM WATER TO DILUTE FLUSHED WITH 30ML OF WATER AFTERWARDS PT. TOLERATED WELL, TUBE SITE C/D WITH NO S/S OF INFECTION
[2019-10-18 05:39] VITALS: BMI 28.8
[2019-10-18 05:45] VITALS: PULSE 72; PULSE 73
[2019-10-18 07:29] LABS: Basophils % 0.1 % (0.1-2.0); Eosinophils % 1.8 % (0.1-12.0); Hematocrit 24.8 % (42.0-52.0); Hemoglobin 8.3 g/dL (14.1-18.0); Lymphocytes # 0.5 K/mm3 (0.7-4.5); Lymphocytes % 28.2 % (10-50); Mean Corpuscular HGB Conc 33.5 g/dL (31.8-35.4); Mean Corpuscular Hemoglobin 34.3 pg (27.0-31.2); Mean Corpuscular Volume 102.3 fl (80-94); Mean Platelet Volume 9.4 fl (7.4-10.4); Monocytes # 0.3 K/mm3 (0.1-1.0); Neutrophils # 0.9 K/mm3 (1.8-7.8); Neutrophils % 52.9 % (37.0-80.0); Platelet Count 107 K/mm3 (142-424); Red Blood Count 2.42 M/mm3 (4.60-6.20); Red Cell Distribution Width 18.9 % (11.5-17.5); White Blood Count 1.8 K/mm3 (4.8-10.8)
[2019-10-18 07:40] LABS: Chloride 100 mmol/L (98-107); Sodium 138 mmol/L (136-145)
[2019-10-18 07:43] LABS: Blood Urea Nitrogen 11 mg/dl (9-20); Carbon Dioxide 33 mmol/L (22.0-30.0); Creatinine Clearance Estimated 90 mL/min (50-200); Estimated Glomerular Filt Rate 161 ml/min (>60); GFR (African American) 195 ML/MIN (>60)
[2019-10-18 07:44] LABS: Glucose 115 mg/dl (74-100)
[2019-10-18 07:59] VITALS: PULSE 66; RESP 18; O2SAT 96
[2019-10-18 08:00] VITALS: BP 132/72; PULSE 66; RESP 18; TEMP 36.7; O2SAT 96
--- NOTE | 2019-10-18 09:30 | HMH.DCSUM ---
General - General Admission date:: 10/16/19 Discharge date: 10/18/19 HPI HPI: 79-year-old male brought in by ambulance to the ER with complaints of short of breath with a feeling of fluid or congestion in his chest during the night last night. He has a cough with copious amount of sputum. When arrived to the ER patient states he developed a fever to 101 degrees today. He denies chest pain. No known exposures, including COVID-19. No vomiting or diarrhea.Hx cancer in his throat and his lung. 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 He says he is being treated through [facility] in [place]. He had surgery on his throat 4 months ago and has had throat pain ever since then. He has a feeding tube feeding 4 times day. He takes oral liquids, but does not eat solid foods, patient states he obtains all of his nutrition through the feeding tube. Patient states he is currently undergoing radiation therapy finished chemotherapy 3 weeks ago. Patient states he does have a history of smoking does not use oxygen at home. Patient states he got his chemotherapy at [facility], but is getting his radiation therapy in [place] with 3 radiation therapy appointment scheduled this coming week. Patient admitted placed on neutropenic precautions. Hospital Course Hospital Course: 79-year-old patient sitting up in chair resting quietly states he had a good evening reports he is feeling a lot better. Informed him he will be discharged today he is in agreement with this 79-year-old male brought in by ambulance to the ER with complaints of short of breath with a feeling of fluid or congestion in his chest during the night last night. He has a cough with copious amount of sputum. When arrived to the ER patient states he developed a fever to 101 degrees today. He denies chest pain. No known exposures, including COVID-19. No vomiting or diarrhea.Hx cancer in his throat and his lung. 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 He says he is being treated through [facility] in [place]. He had surgery on his throat 4 months ago and has had throat pain ever since then. He has a feeding tube feeding 4 times day. He takes oral liquids, but does not eat solid foods, patient states he obtains all of his nutrition through the feeding tube. Patient states he is currently undergoing radiation therapy finished chemotherapy 3 weeks ago. Patient states he does have a history of smoking does not use oxygen at home. Patient states he got his chemotherapy at [facility], but is getting his radiation therapy in [place] with 3 radiation therapy appointment scheduled this coming week. Patient admitted placed on neutropenic precautions (Per Destini Gamboa APRN). 10/16/19 CXR: FINDINGS: Prior CABG with biventricular and right atrial pacemaker present. The lungs are clear without infiltrates, suspicious nodules, or pleural effusions. No acute bony abnormalities. IMPRESSION: No acute findings. Dictated by: Rayray, He has been in neutropenic precautions during his stay in the hospital, and has been afebrile for 24 hours. Blood cultures have been negative x2, urine culture has grown pseudomonas aeruginosa. He will be discharged home on Levaquin 750 mg daily x4 days follow-up with [facility] and follow-up with PCP in 1 to 2 weeks Objective Vital signs: Temp Pulse Resp BP Pulse Ox 98.1 F 66 18 132/72 96 10/18/19 08:00 10/18/19 08:00 10/18/19 08:00 10/18/19 08:00 10/18/19 08:00 no acute distress, chronically ill appearing - *Routine HEENT Exam ENT: Present: mucous membranes moist - *Routine Neck Exam Present: trachea midline. Absent: JVD, tenderness, tracheal deviation - *Routine Respiratory Exam Present: CTA bilaterally. Absent: accessor
--- NOTE | 2019-10-18 11:12 | HMH.PHAINT ---
PATIENT WAS COUNSELED ON NEW MEDICATION: LEVOFLOXACIN. THE PATIENT WILL CONTINUE ALL HOME MEDICATIONS. THE PATIENT DID NOT HAVE ANY QUESTIONS.
== END 2019-10-18 11:00 | disposition home or self-care (01) | DRG 690 ==
LOC: ER 17:22 → 2ND 18:54
PROVIDERS: Nurse Practitioner Family; Admitting Provider Internal Medicine Adolescent Medicine; Emergency Provider Emergency Medicine; PCP Emergency Medicine; Visit Provider Emergency Medicine
DX: N39.0 Urinary tract infection, site not specified (principal); C34.90 Malignant neoplasm of unspecified part of unspecified bronchus or lung; I42.9 Cardiomyopathy, unspecified; C32.9 Malignant neoplasm of larynx, unspecified; J44.9 Chronic obstructive pulmonary disease, unspecified; I11.9 Hypertensive heart disease without heart failure; B96.5 Pseudomonas (aeruginosa) (mallei) (pseudomallei) as the cause of diseases classified elsewhere; I25.2 Old myocardial infarction; I65.23 Occlusion and stenosis of bilateral carotid arteries; I25.10 Atherosclerotic heart disease of native coronary artery without angina pectoris; E78.5 Hyperlipidemia, unspecified; Z72.0 Tobacco use; Z95.1 Presence of aortocoronary bypass graft; Z95.810 Presence of automatic (implantable) cardiac defibrillator
CPT/HCPCS: 36415; 71045; 71046; 80048; 80053; 81001; 82803; 83605; 83880; 84484; 85007; 85025; 86328; 87040; 87086; 87088; 87186; 87275; 87276; 87430; 87581; 87633; 87798; 93005; 94640; 96365; 96366; 96367; 99285; G0378

== ENCOUNTER → 2020-05-06 18:23 | Outpatient (CLI) | payer MEDICARE, SELFPAY ==
[2020-05-06 19:03] LABS: Basophils % 0.3 % (0.1-2.0); Eosinophils # 0.1 K/mm3 (0.0-0.4); Eosinophils % 0.6 % (0.1-12.0); Hematocrit 46.8 % (42.0-52.0); Hemoglobin 14.7 g/dL (14.1-18.0); Lymphocytes # 1.1 K/mm3 (0.7-4.5); Mean Corpuscular HGB Conc 31.5 g/dL (31.8-35.4); Mean Corpuscular Hemoglobin 31.7 pg (27.0-31.2); Mean Corpuscular Volume 100.7 fl (80-94); Mean Platelet Volume 9.3 fl (7.4-10.4); Monocytes # 0.6 K/mm3 (0.1-1.0); Neutrophils # 6.9 K/mm3 (1.8-7.8); Neutrophils % 79.2 % (37.0-80.0); Platelet Count 297 K/mm3 (142-424); Red Blood Count 4.65 M/mm3 (4.60-6.20); Red Cell Distribution Width 15.1 % (11.5-17.5); White Blood Count 8.8 K/mm3 (4.8-10.8)
[2020-05-06 19:08] LABS: Alanine Aminotransferase 11 U/L (12-78); Albumin Level 4.1 g/dl (3.5-5.0); Albumin/Globulin Ratio 1.8 (1.1-1.8); Alkaline Phosphatase 70 U/L (38-126); Anion Gap 7.6 mEq/L (5-15); Aspartate Amino Transferase 24 U/L (17-59); Bilirubin,Total 0.7 mg/dl (0.2-1.3); Blood Urea Nitrogen 19 mg/dl (9-20); Calcium 9.7 mg/dl (8.4-10.2); Carbon Dioxide 38 mmol/L (22.0-30.0); Chloride 99 mmol/L (98-107); Chol/HDL Ratio 2.5 (1-3.5); Cholesterol 146 mg/dl (140-200); Estimated Glomerular Filt Rate 93 ml/min (>60); GFR (African American) 113 ML/MIN (>60); Globulin 2.3 g/dL (1.3-3.2); Glucose 101 mg/dl (74-100); HDL Cholesterol 59 mg/dl (40-60); Potassium 3.6 mmoL/L (3.5-5.1); Sodium 141 mmol/L (136-145); Total Protein,Serum 6.4 g/dl (6.3-8.2); Triglycerides 110 mg/dl (30-150); VLDL Cholesterol 22 mg/dL (0-40)
[2020-05-06 19:19] LABS: Direct LDL Cholesterol 59.53 mg/dL (100-129)
[2020-05-06 19:28] LABS: 25-OH Vitamin D, Total 23.1 ng/mL (30-100)
[2020-05-06 19:41] LABS: Prostate Specific Ag Screen < 0.1 ng/ml (0.0-4.0); Thyroid Stimulating Hormone 2.55 uIU/mL (0.465-4.68)
[2020-05-06 21:10] LABS: Free T4 (Free Thyroxine) 1.26 ng/dl (0.78-2.19)
== END ==
PROVIDERS: Visit Provider Emergency Medicine
DX: E66.9 Obesity, unspecified (principal); R42 Dizziness and giddiness; I49.9 Cardiac arrhythmia, unspecified; E55.9 Vitamin D deficiency, unspecified; Z12.5 Encounter for screening for malignant neoplasm of prostate
CPT/HCPCS: 80053; 80061; 82306; 84439; 84443; 85025; G0103

== ENCOUNTER → 2020-05-29 12:58 | Outpatient (CLI) | payer MEDICARE, SELFPAY ==
--- NOTE | 2020-05-29 13:15 | CA_ITS ---
APPROVED REPORT EXAM: Comprehensive 2D, Doppler, and color-flow Echocardiogram Lockstitcher: Kaylen Whitaker RVT Ht: 6 ft 3 in Wt: 203lbs BSA: 2.21 BP: 124/80 mmHg Indications: CM, Lung CA, CAD, Pacer, Cabg 2D Dimensions LVOT 2.30 cm (M/F) 1.5-2.5 LA Volume 44.60 mL LA Volume Index 20.20 mL/m2 (M/F) 16-34 M-Mode Dimensions RVDd 3.83 cm (0.9-2.6) LA Diam 4.71 cm (1.9-4.0) LVDd 5.45 cm (3.5-5.7) Ao Diam 3.87 cm (2.0-3.7) LVDs 4.17 cm (3.5-5.7) IVSd 1.62 cm (0.6-1.1) PWd 2.01 cm (0.6-1.1) EF (Teich) 46.50% FS 23.50% EDV (Teich) 144.40 mL ESV (Teich) 77.30 mL Aortic Valve AI PHT 1278.00 ms Pulmonary Valve PV Peak Velocity 94.00 (50-150 cm/s) Tricuspid Valve TR P. Velocity 213.00 cm/s RAP Estimate 10.00 mmHg RVSP 28.10 mmHg Left Ventricle Left atrium is mildly enlarged, left ventricle is normal size, mild concentric left ventricular hypertrophy, visually estimated ejection fraction 50% with no regional wall motion abnormality, there is abnormal septal motion. Right Ventricle Right atrium and right ventricle are mildly enlarged with normal contractility. A pacemaker lead seen right atrium and right ventricle. Aortic Valve Aortic valve is thickened and calcified leaflet chordae display good mobility, there is no aortic stenosis, there is trace aortic insufficiency. Mitral Valve Mitral valve leaflets are minimally thickened, there is mild mitral regurgitation. Tricuspid Valve Tricuspid grossly normal, there is trace tricuspid regurgitation, tricuspid regurgitation jet velocity is inadequate for calculation of the right ventricular systolic pressure. Pulmonic Valve Pulmonic valve is poorly visualized. Great Vessels Aortic root is normal size. Pericardium No significant pericardial effusion noted. Conclusion 1. Biatrial enlargement, normal left ventricular size, mild concentric left ventricular hypertrophy, visually estimated ejection fraction 50%, there is abnormal septal motion, diastolic parameters are inconclusive in this study. 2. Mildly enlarged right ventricle with normal contractility. 3. Mild aortic, mild mitral and tricuspid regurgitation. 4. No significant pericardial effusion noted. Electronically signed by : Albino Shaw, 05/30/2020 13:36:15
== END ==
PROVIDERS: PCP Emergency Medicine; Visit Provider Urology
DX: I27.20 Pulmonary hypertension, unspecified (principal)
CPT/HCPCS: 93306

== ENCOUNTER → 2020-06-14 10:31 | Outpatient (CLI) | payer MEDICARE, SELFPAY ==
--- NOTE | 2020-06-14 10:31 | CA_ITS ---
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: Kaylen Whitaker RVT Laterality: Bilateral Study Quality: Good Indications: bilateral carotid artery stenosis Risk Factors Hypertension: Smoking Doppler Spectral Velocity Analysis ECA (R) 46.90/4.50 cm/s ECA (L) 45.60/5.10 cm/s dICA (R) 61.60/16.10 cm/s dICA (L) 64.20/15.40 cm/s Mary (R) 39.80/10.90 cm/s Mary (L) 43.00/16.10 cm/s pICA (R) 23.80/9.00 cm/s pICA (L) 68.70/16.70 cm/s dCCA (R) 41.10/7.70 cm/s dCCA (L) 31.50/9.00 cm/s pCCA (R) 96.20/10.70 cm/s pCCA (L) 50.10/10.90 cm/s Vert (R) 25.00/8.30 cm/s Vert (L) 30.20/10.30 cm/s ICA/CCA 1.50 ICA/CCA 2.18 Findings Study suggests 20-49% stenosis of the right internal cartoid artery. Study suggests less than 20% stenosis of the left internal cartoid artery. Antegrade flow seen bilateral vertebral arteries. 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 Study suggests less than 20% stenosis of the left internal cartoid artery. Antegrade flow seen bilateral vertebral arteries. Electronically signed by : Rajeev Seo MD 06/14/2020 16:14:54
== END ==
PROVIDERS: PCP Emergency Medicine; Visit Provider Nurse Practitioner Family
DX: I65.23 Occlusion and stenosis of bilateral carotid arteries (principal)
CPT/HCPCS: 93880

== ENCOUNTER 2020-06-20 11:38 | Emergency (ER) | payer MEDICARE, SELFPAY ==
[2020-06-20] VITALS (22 sets, daily range): BP systolic 98–150; BP diastolic 62–96; PULSE 55–85; RESP 13–22; TEMP 36.7–36.8; O2SAT 93–98; BMI 25.0
--- NOTE | 2020-06-20 11:45 | ECG_ITS ---
APPROVED REPORT Exam: Resting ECG HR:73 bpm ECG Measurements Heart Rate 73 AXES TX 150 P 53 QRSd 184 QRS 190 QT 478 T 16 QTc 526 Conclusion Electronic ventricular pacemaker Electronically signed by : Michael Aguilar, 06/21/2020 11:41:44
--- NOTE | 2020-06-20 11:55 | HMH.EDGENADL ---
ED Disposition Clinical Impression: Brain metastasis, Elevated troponin, Brain bleed Acute renal failure Qualifiers: Acute renal failure type: unspecified Qualified Code(s): N17.9 - Acute kidney failure, unspecified Lumbar compression fracture Qualifiers: Encounter type: initial encounter Lumbar vertebra fracture level: L5 Qualified Code(s): S32.050A - Wedge compression fracture of fifth lumbar vertebra, initial encounter for closed fracture Lung cancer Qualifiers: Laterality: unspecified laterality Lung location: unspecified part of lung Qualified Code(s): C34.90 - Malignant neoplasm of unspecified part of unspecified bronchus or lung Disposition: Xfer Short-Term Hosp Condition on Discharge: Serious Instructions: DI for Low Back Pain Referrals: Jose F Morel MD [Primary Care Provider] - Forms: Transfer Record - ED - Critical Care Critical Care Time: Yes Attestation: On 06/20/20, the high probability of a clinically significant, sudden or life threatening deterioration of the following system(s) required my full and direct attention, intervention and personal management. The time I documented below is in addition to time spent performing reported procedures but includes the following listed in this critical care notation. Total Critical Care Time: 45 Vital system(s) involved:: Central Nervous System, Renal Failure My critical care processes included: Assessment & monitoring of V/S, Initial and Re-exams, Data Review/Interpretation, Coordinating Care, Medication Orders and management, Documentation Medical Decision Making - Medical Records Medical records reviewed: Yes: I reviewed the patient's medical records. MR Comment: [facility] portal reviewed. Most recent visit was 06/14/2020 to ear nose throat. - Isaías Inquiry Pt receiving controlled substance: No Vital Signs: 06/20/20 11:39 06/20/20 11:54 06/20/20 11:55 Temperature 98.1 F Temperature Source Oral Pulse Rate 74 75 Pulse Rate [Right] 72 Respiratory Rate 16 19 19 Blood Pressure 120/83 Blood Pressure [Right Arm] 109/69 L Blood Pressure Mean 92 Blood Pressure Mean [Right Arm] 82 Blood Pressure Source Blood Pressure Position 02 Sat by Pulse Oximetry 98 96 96 Oxygen Delivery Method Oxygen Flow Rate (LPM) 06/20/20 12:00 06/20/20 12:15 06/20/20 12:32 Temperature Temperature Source Pulse Rate 73 71 75 Pulse Rate [Right] Respiratory Rate 19 15 Blood Pressure 126/81 Blood Pressure [Right Arm] Blood Pressure Mean 86 Blood Pressure Mean [Right Arm] Blood Pressure Source Blood Pressure Position 02 Sat by Pulse Oximetry 95 96 97 Oxygen Delivery Method Oxygen Flow Rate (LPM) 06/20/20 12:45 06/20/20 12:50 06/20/20 13:00 Temperature Temperature Source Pulse Rate 72 71 Pulse Rate [Right] Respiratory Rate 17 13 20 Blood Pressure 107/71 L 117/74 Blood Pressure [Right Arm] Blood Pressure Mean 76 84 Blood Pressure Mean [Right Arm] Blood Pressure Source Blood Pressure Position 02 Sat by Pulse Oximetry 98 96 Oxygen Delivery Method Oxygen Flow Rate (LPM) 06/20/20 13:15 06/20/20 13:30 06/20/20 14:08 Temperature Temperature Source Pulse Rate 71 59 L 72 Pulse Rate [Right] Respiratory Rate 17 19 19 Blood Pressure 98/62 L Blood Pressure [Right Arm] Blood Pressure Mean 74 Blood Pressure Mean [Right Arm] Blood Pressure Source Blood Pressure Position 02 Sat by Pulse Oximetry 93 L 95 95 Oxygen Delivery Method Oxygen Flow Rate (LPM) 06/20/20 14:10 06/20/20 14:15 06/20/20 14:30 Temperature Temperature Source Pulse Rate 55 L 73 74 Pulse Rate [Right] Respiratory Rate 15 18 19 Blood Pressure 142/82 H Blood Pressure [Right Arm] Blood Pressure Mean 98 Blood Pressure Mean [Right Arm] Blood Pressure Source Blood Pressure Position 02 Sat by Pulse Oximetry 95 94 L 97 Oxygen Delivery Method Oxygen Fl
--- NOTE | 2020-06-20 12:12 | XR_ITS ---
PROCEDURE: XR CHEST PORTABLE CLINICAL HISTORY: low bp Lung cancer COMPARISON: CR CXR2V XR chest 2V from 07/14/[address] chest wo con from 07/15/2018 CR XR CHEST PORTABLE from 10/15/2019 CR XR CHEST 2V from 10/16/2019 FINDINGS: There has been a prior CABG. Biventricular pacemaker with right atrial lead is present from left subclavian approach. The lungs are clear without infiltrates, suspicious nodules, or pleural effusions. No acute bony abnormalities. IMPRESSION: No acute findings. Dictated by: Rajeev Seo MD 06/20/2020 15:42 Rajeev Seo MD in [facility] 06/20/2020 15:42
[2020-06-20 12:15] LABS: Basophils % 0.1 % (0.1-2.0); Eosinophils # 0.1 K/mm3 (0.0-0.4); Eosinophils % 0.4 % (0.1-12.0); Hematocrit 40.9 % (42.0-52.0); Hemoglobin 13.8 g/dL (14.1-18.0); Lymphocytes # 0.7 K/mm3 (0.7-4.5); Lymphocytes % 4.3 % (10-50); Mean Corpuscular HGB Conc 33.7 g/dL (31.8-35.4); Mean Corpuscular Hemoglobin 32.1 pg (27.0-31.2); Mean Corpuscular Volume 95.1 fl (80-94); Mean Platelet Volume 9.8 fl (7.4-10.4); Monocytes # 0.6 K/mm3 (0.1-1.0); Neutrophils # 14.4 K/mm3 (1.8-7.8); Neutrophils % 91.3 % (37.0-80.0); Platelet Count 62 K/mm3 (142-424); Red Cell Distribution Width 15.2 % (11.5-17.5); White Blood Count 15.8 K/mm3 (4.8-10.8)
[2020-06-20 12:18] LABS: Chloride 97 mmol/L (98-107); MANUAL DIFFERENTIAL MANUAL DIFFERENTIAL (MANUAL DIFF)
[2020-06-20 12:19] LABS: Potassium 3.9 mmoL/L (3.5-5.1); Sodium 132 mmol/L (136-145)
[2020-06-20 12:22] LABS: Anion Gap 10.9 mEq/L (5-15); Calcium 9.2 mg/dl (8.4-10.2); Carbon Dioxide 28 mmol/L (22.0-30.0); Creatinine Clearance Estimated 21 mL/min (50-200); Estimated Glomerular Filt Rate 16 ml/min (>60); GFR (African American) 19 ML/MIN (>60); Glucose 113 mg/dl (74-100)
[2020-06-20 12:26] LABS: Blood Urea Nitrogen 81 mg/dl (9-20)
--- NOTE | 2020-06-20 12:27 | PC.NURSE ---
lab called with criticals BUN 81 AND CREAT 3.70 AWARE
--- NOTE | 2020-06-20 12:33 | CT_ITS ---
PROCEDURE: CT LUMBAR SPINE WO CON CLINICAL HISTORY: low back pain History of throat and lung cancer COMPARISON: CT ABDPELW/O CT ABD PELVIS W/O CONTRAST from 05/26/2016 TECHNIQUE: Axial images obtained with sagittal and coronal reformats. All CT scans at the facility use one or more dose reduction, viz: automated exposure control, ma/kV adjustment per patient size (including targeted exams where dose is matched to indication, i.e. head), or iterative reconstruction technique. FINDINGS: There is normal alignment. There is generalized osteopenia. Multilevel lumbar spondylosis is present. Small air bony sclerosis involves the T12 vertebral body which was present on 05/26/2016 nonspecific and may be due to small bone island. Mild facet hypertrophic changes are present from L3-S1. There is mild bulging disc at L4-5 with facet and ligamentum hypertrophy. There is fracture of the superior endplate of L5 extending inferiorly and posteriorly there is minimal depression of the lateral and posterior fracture fragment. There is also mild retrolisthesis of the posterior fracture fragment by 5 mm. There is some increased soft tissue density along the posterior aspect of the vertebral body at this area which could represent epidural hemorrhage. The this is somewhat more dense than what 1 would expect for disc material. MRI may provide further evaluation if clinically warranted. There are prominent facet arthritic changes at L4-5 and L5-S1. IMPRESSION: 1. Bulging disc at L4-5 with facet and ligamentum hypertrophy. There is fracture of the superior endplate of L5 extending inferiorly and posteriorly there is minimal depression of the lateral and posterior fracture fragment. There is also mild retrolisthesis of the posterior fracture fragment by 5 mm. There is some increased soft tissue density along the posterior aspect of the vertebral body at this area which could represent epidural hemorrhage. The this is somewhat more dense than what 1 would expect for disc material. MRI may provide further evaluation if clinically warranted. 2. Multilevel lumbar spondylosis as described above. Dictated by: Rajeev Seo MD 06/20/2020 15:53 Rajeev Seo MD in [facility] 06/20/2020 15:53
[2020-06-20 12:34] LABS: Troponin I 0.12 ng/ml (0.00-0.034)
[2020-06-20 12:40] LABS: Lymphocytes % 7 % (10-50); Monocytes % 3 % (2-9); Neutrophils % 90 % (42-76); Platelet Estimate Marked Decrease; RBC Morphology Normal; Total Cells Counted 100
--- NOTE | 2020-06-20 12:53 | PC.NURSE ---
RAD[facility]ATION CLINIC CALLED WANTED US TO KNOW OVER THE PAST COUPLE OF DAYS THEY HAVE SEEN A BIG DECLINE IN PT , HE HAS BEEN HYPOTENSIVE , WITH UNSTEADY GAIT AND SPEECH HAS BEEN SLURRED , PT DOES HAVE MULTIPLE LESIONS TO THE BRAIN AND TO THE LUNGS.
--- NOTE | 2020-06-20 12:58 | CT_ITS ---
PROCEDURE: CT HEAD/BRAIN WO CON CLINICAL INDICATION: UNSTEADY GAIT Difficulty walking, generalized weakness, history of throat and lung cancer COMPARISON: No exams were available for comparison TECHNIQUE: Axial images obtained. All CT scans at the facility use one or more dose reduction, viz: automated exposure control, ma/kV adjustment per patient size (including targeted exams where dose is matched to indication, i.e. head), or iterative reconstruction technique. FINDINGS: There is a 2.5 cm complex hemorrhagic mass within the left basal ganglia/putamen region. There is a mild amount of surrounding edema. In addition, there is a hyperdense nodule in the left temporal lobe anteriorly measuring 13 mm and in the left temporal lobe in the mid aspect laterally measuring 14 mm. These are suspicious for metastatic foci. There may be a small hyperdense lesion in the right internal capsule posterior horn at 6 mm. Suggest MRI for more thorough evaluation with contrast there may be a small hyper density in the right frontal cortex at 6 mm as well. No hydrocephalus. Prominent periventricular ischemic gliotic changes are noted. Small amount fluid is present in the left mastoid sinus. IMPRESSION: 1. 2.5 cm complex hemorrhagic mass in the left basal ganglia with mild edema. There are at least 2 other hyperdense nodules which are in the left temporal lobe and questionable hyperdense nodule in the right internal capsule and right frontal lobe. Metastatic disease is considered. Suggest MRI with contrast for further evaluation. 2. Periventricular ischemic gliotic changes. Dictated by: Rajeev Seo MD 06/20/2020 16:46 Rajeev Seo MD in [facility] 06/20/2020 16:46
[2020-06-20 13:01] LABS: Alanine Aminotransferase 18 U/L (12-78); Alkaline Phosphatase 65 U/L (38-126); Aspartate Amino Transferase 46 U/L (17-59); Bilirubin,Direct 0.2 mg/dl (0.0-0.4); Bilirubin,Total 1.2 mg/dl (0.2-1.3)
[2020-06-20 13:02] LABS: Albumin Level 3.5 g/dl (3.5-5.0); Total Protein,Serum 5.7 g/dl (6.3-8.2)
[2020-06-20 13:06] LABS: Lactic Acid 0.7 mmol/L (0.7-2.1)
--- NOTE | 2020-06-20 13:44 | PC.NURSE ---
pt to rad
--- NOTE | 2020-06-20 14:09 | PC.NURSE ---
Pt returned from rad.
--- NOTE | 2020-06-20 14:24 | PC.NURSE ---
Dr Menon speaking with [facility] at this time.
--- NOTE | 2020-06-20 14:48 | PC.NURSE ---
Dr Menon speaking with [facility] at this time.
== END 2020-06-20 16:39 | disposition short-term general hospital (02) ==
PROVIDERS: Emergency Provider Emergency Medicine; PCP Emergency Medicine
DX: I61.9 Nontraumatic intracerebral hemorrhage, unspecified (principal); N17.9 Acute kidney failure, unspecified; C34.90 Malignant neoplasm of unspecified part of unspecified bronchus or lung; C32.9 Malignant neoplasm of larynx, unspecified; C79.31 Secondary malignant neoplasm of brain; S32.050A Wedge compression fracture of fifth lumbar vertebra, initial encounter for closed fracture; I25.10 Atherosclerotic heart disease of native coronary artery without angina pectoris; I42.8 Other cardiomyopathies; E78.5 Hyperlipidemia, unspecified; I10 Essential (primary) hypertension; Z95.0 Presence of cardiac pacemaker; F17.210 Nicotine dependence, cigarettes, uncomplicated; Z79.899 Other long term (current) drug therapy
CPT/HCPCS: 70450; 71045; 72131; 80048; 80076; 83605; 84484; 85007; 85025; 87040; 93005; 99283

== ENCOUNTER 2020-07-02 17:33 | Emergency (ER) | payer MEDICARE, SELFPAY ==
[2020-07-02] VITALS (20 sets, daily range): BP systolic 139–183; BP diastolic 85–116; PULSE 62–86; RESP 15–20; TEMP 37.2; O2SAT 96–100; BMI 23.1
--- NOTE | 2020-07-02 17:41 | CT_ITS ---
PROCEDURE: CT HEAD/BRAIN WO CON CLINICAL INDICATION: seizure COMPARISON: CT CT HEAD/BRAIN WO CON from 06/20/2020 TECHNIQUE: Axial images obtained. All CT scans at the facility use one or more dose reduction, viz: automated exposure control, ma/kV adjustment per patient size (including targeted exams where dose is matched to indication, i.e. head), or iterative reconstruction technique. FINDINGS: There is intraparenchymal hemorrhage noted in the left temporal lobe measuring 2.8 times 2.9 centimeters, demonstrates extensive cytotoxic edema adjacent to the hemorrhage demonstrates increase in size and mass effect compared to the prior study. Previously noted hemorrhage in the left anterior temporal lobe demonstrates marginal improvement compared to the prior study. There is mild mass effect with effacement of the sulci in the left parietotemporal lobes. Previously noted left basal ganglia hemorrhage with associated edema is again noted, demonstrates no significant interval change. No evidence of subarachnoid or intraventricular extension. Previously noted right frontal hemorrhage is not visualized on the current study. No midline shift. The ventricles are normal in size, shape and symmetry. Extensive periventricular and subcortical white matter hypodensities are noted, may represent microvascular changes. Atherosclerotic vascular calcification is noted. Visualized osseous structures are unremarkable. Paranasal sinuses and mastoid air cells are clear clear. IMPRESSION: Left temporal intraparenchymal hemorrhage demonstrates worsening compared to the prior study. There is associated adjacent cytotoxic edema. Previously noted left basal ganglia hemorrhage is again noted, demonstrates no significant interval change. In view of multiple focal hemorrhages without subarachnoid or intraventricular extension, hemorrhagic tumors cannot be completely excluded. If clinically indicated, MRI of the brain without and with contrast should be considered for further evaluation. MR angiogram of the brain may be useful. Dictated by: Marcie Moore 07/03/2020 09:26 Marcie Moore in [facility] 07/03/2020 09:26
--- NOTE | 2020-07-02 17:51 | [facility].EDSEIZ ---
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 The time I documented below is in addition to time spent performing reported procedures but includes the following listed in this critical care notation. Total Critical Care Time: 35 Vital system(s) involved:: Central Nervous System My critical care processes included: Assessment & monitoring of V/S, Initial and Re-exams, Data Review/Interpretation, Coordinating Care, Medication Orders and management, Documentation Medical Decision Making - Isaías Inquiry Pt receiving controlled substance: No Vital Signs: 07/02/20 17:33 07/02/20 18:27 07/02/20 18:30 Temperature Temperature Source Pulse Rate 69 69 Pulse Rate [Left Radial] 75 Respiratory Rate 18 15 17 Blood Pressure 155/90 H 157/104 H Blood Pressure [Right Arm] 139/85 Blood Pressure Mean 111 114 Blood Pressure Mean [Right Arm] 103 Blood Pressure Source Automatic Cuff Blood Pressure Source [Right Arm] Automatic Cuff Blood Pressure Position Supine Blood Pressure Position [Right Arm] Sitting 02 Sat by Pulse Oximetry 100 100 97 Oxygen Delivery Method Nasal Cannula Room Air Oxygen Flow Rate (LPM) 2 07/02/20 18:33 07/02/20 18:37 07/02/20 18:39 Temperature Temperature Source Pulse Rate 86 82 82 Pulse Rate [Left Radial] Respiratory Rate 20 17 17 Blood Pressure 157/104 H 165/103 H 151/96 H Blood Pressure [Right Arm] Blood Pressure Mean 116 106 Blood Pressure Mean [Right Arm] Blood Pressure Source Automatic Cuff Blood Pressure Source [Right Arm] Blood Pressure Position Supine Blood Pressure Position [Right Arm] 02 Sat by Pulse Oximetry 99 97 97 Oxygen Delivery Method Room Air Oxygen Flow Rate (LPM) 07/02/20 18:40 07/02/20 18:42 07/02/20 18:44 Temperature Temperature Source Pulse Rate 65 65 Pulse Rate [Left Radial] Respiratory Rate 15 15 Blood Pressure 165/97 H 147/116 H 162/102 H Blood Pressure [Right Arm] Blood Pressure Mean 106 119 122 Blood Pressure Mean [Right Arm] Blood Pressure Source Blood Pressure Source [Right Arm] Blood Pressure Position Blood Pressure Position [Right Arm] 02 Sat by Pulse Oximetry 99 98 Oxygen Delivery Method Oxygen Flow Rate (LPM) 07/02/20 18:50 07/02/20 18:52 07/02/20 18:53 Temperature Temperature Source Pulse Rate 68 69 Pulse Rate [Left Radial] Respiratory Rate 17 20 Blood Pressure 171/103 H 167/95 H 183/105 H Blood Pressure [Right Arm] Blood Pressure Mean 129 119 Blood Pressure Mean [Right Arm] Blood Pressure Source Blood Pressure Source [Right Arm] Blood Pressure Position Blood Pressure Position [Right Arm] 02 Sat by Pulse Oximetry 99 97 Oxygen Delivery Method Oxygen Flow Rate (LPM) 07/02/20 19:00 07/02/20 19:02 07/02/20 19:04 Temperature Temperature Source Pulse Rate 69 68 68 Pulse Rate [Left Radial] Respiratory Rate 20 18 20 Blood Pressure 164/95 H 161/88 H 163/91 H Blood Pressure [Right Arm] Blood Pressure Mean 118 112 115 Blood Pressure Mean [Right Arm] Blood Pressure Source Blood Pressure Source [Right Arm] Blood Pressure Posit
[2020-07-02 18:00] LABS: Basophils % 0.1 % (0.1-2.0); Chloride 103 mmol/L (98-107); Eosinophils # 0.1 K/mm3 (0.0-0.4); Eosinophils % 0.5 % (0.1-12.0); Hematocrit 36.9 % (42.0-52.0); Hemoglobin 12.1 g/dL (14.1-18.0); Lymphocytes # 0.6 K/mm3 (0.7-4.5); Lymphocytes % 5.4 % (10-50); Mean Corpuscular HGB Conc 32.8 g/dL (31.8-35.4); Mean Corpuscular Hemoglobin 32.3 pg (27.0-31.2); Mean Corpuscular Volume 98.7 fl (80-94); Mean Platelet Volume 8.3 fl (7.4-10.4); Monocytes # 0.1 K/mm3 (0.1-1.0); Neutrophils # 10.5 K/mm3 (1.8-7.8); Platelet Count 164 K/mm3 (142-424); Potassium 3.9 mmoL/L (3.5-5.1); Red Blood Count 3.74 M/mm3 (4.60-6.20); Red Cell Distribution Width 14.1 % (11.5-17.5); Sodium 138 mmol/L (136-145); White Blood Count 11.3 K/mm3 (4.8-10.8)
[2020-07-02 18:03] LABS: Alanine Aminotransferase 28 U/L (12-78); Albumin Level 3.5 g/dl (3.5-5.0); Albumin/Globulin Ratio 1.8 (1.1-1.8); Alkaline Phosphatase 59 U/L (38-126); Anion Gap 14.9 mEq/L (5-15); Aspartate Amino Transferase 47 U/L (17-59); Blood Urea Nitrogen 56 mg/dl (9-20); Calcium 8.8 mg/dl (8.4-10.2); Carbon Dioxide 24 mmol/L (22.0-30.0); Creatinine Clearance Estimated 39 mL/min (50-200); Estimated Glomerular Filt Rate 37 ml/min (>60); GFR (African American) 44 ML/MIN (>60); Glucose 122 mg/dl (74-100); Total Protein,Serum 5.5 g/dl (6.3-8.2)
[2020-07-02 18:08] LABS: MANUAL DIFFERENTIAL MANUAL DIFFERENTIAL (MANUAL DIFF)
--- NOTE | 2020-07-02 18:33 | PC.NURSE ---
calling [facility] for transfer
[2020-07-02 18:35] LABS: Eosinophils % 1 % (0-3); Lymphocytes % 4 % (10-50); Neutrophils % 95 % (42-76); Platelet Estimate Normal; RBC Morphology Normal; Total Cells Counted 100
[2020-07-02 18:36] LABS: Activated Partial Thrombo Time 22.6 seconds (22.8-30.6); Prothrombin Time 11.8 seconds (10.1-12.5)
--- NOTE | 2020-07-02 18:56 | PC.NURSE ---
Dr Griffith speaking with Dr Sánchez
== END 2020-07-02 19:34 | disposition short-term general hospital (02) ==
PROVIDERS: Emergency Provider Emergency Medicine; PCP Emergency Medicine
DX: G40.401 Other generalized epilepsy and epileptic syndromes, not intractable, with status epilepticus (principal); C76.0 Malignant neoplasm of head, face and neck; C78.00 Secondary malignant neoplasm of unspecified lung; C79.31 Secondary malignant neoplasm of brain; I25.10 Atherosclerotic heart disease of native coronary artery without angina pectoris; I25.2 Old myocardial infarction; E78.5 Hyperlipidemia, unspecified; I10 Essential (primary) hypertension; F17.210 Nicotine dependence, cigarettes, uncomplicated; Z95.0 Presence of cardiac pacemaker
CPT/HCPCS: 70450; 80053; 85007; 85025; 85610; 85730; 96365; 96375; 99284; J1953